=== PATIENT | female | born 1985 | race Caucasian/White ===

== ENCOUNTER 2023-12-27 20:07 | Outpatient (REF) | payer BC, MEDICAID, SELFPAY ==
[2024-01-03 09:07] LABS: Age Gdln ACOG Testing Note (.); HPV Aptima Negative (Negative); IGP, Aptima HPV, rfx 16/18,45 Note (.)
== END 2023-12-27 20:08 | disposition home or self-care (01) ==
LOC: LAB 20:07
PROVIDERS: Visit Provider Obstetrics & Gynecology
DX: Z01.419 Encounter for gynecological examination (general) (routine) without abnormal findings (principal); N92.6 Irregular menstruation, unspecified
CPT/HCPCS: 87624; G0145

== ENCOUNTER 2024-01-05 10:07 | Outpatient (OUT) | payer BC, MEDICAID, SELFPAY ==
--- NOTE | 2024-01-05 10:09 | US_ITS ---
The [address] [address] Patient Name: ANTONIO GAYTAN MRN: [id number] date: 1985 Sex: F Assigned Patient Location: [facility] Current Patient Location: [facility] Accession/Order Number: [id number] Exam Date: 01/05/2024 10:10 Report Date: 01/05/2024 12:48 At the request of: BRIGITTE HERNANDEZ Procedure: US pelvis w/ transvaginal EXAMINATION: US pelvis w/ transvaginal HISTORY: IRREGULAR MENSTRAL CYCLE COMPARISON: No relevant comparison available. FINDINGS: Transabdominal and transvaginal images The uterus is normal in size, contour and myometrial echotexture measuring 8.7 x 4.0 x 4.6 cm. Anteverted, anteflexed. No focal myometrial mass The endometrium measures 10 mm, normal. The right ovary is normal measuring 3.0 x 1.6 x 2.8 cm. Normal color and Doppler flow The left ovary is normal measuring 2.9 x 2.0 x 2.6 cm. Normal color and Doppler flow US/US pelvis w/ transvaginal IMPRESSION: No acute abnormality Electronically authenticated by: JOSSIE DUPREE Date: 01/05/2024 12:48
== END 2024-01-05 10:08 | disposition home or self-care (01) ==
LOC: NOMS 10:07
PROVIDERS: PCP Obstetrics & Gynecology; Visit Provider Obstetrics & Gynecology
DX: N92.6 Irregular menstruation, unspecified (principal)
CPT/HCPCS: 76830; 76856

== ENCOUNTER 2024-01-19 11:58 | Emergency (ER) | payer BC, MEDICAID, SELFPAY ==
[2024-01-19] VITALS (15 sets, daily range): BP systolic 97–156; BP diastolic 66–97; PULSE 73–103; TEMP 36.8; O2SAT 86–100; BMI 24.7
--- NOTE | 2024-01-19 12:26 | ECG_ITS ---
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
--- NOTE | 2024-01-19 12:26 | XR_ITS ---
The [address] [address] Patient Name: ANTONIO GAYTAN MRN: [id number] date: 1985 Sex: F Assigned Patient Location: ER Current Patient Location: ER Accession/Order Number: [id number] Exam Date: 01/19/2024 12:42 Report Date: 01/19/2024 13:00 At the request of: STACI STALLINGS Procedure: XR chest 1V EXAM: Chest x-ray HISTORY: . chest pain . COMPARISON: None. TECHNIQUE: Angled view of the chest FINDINGS: Heart and vascularity are unremarkable. Lungs are free of focal infiltrates. EKG leads overlie the chest. XR/XR chest 1V IMPRESSION: No acute heart or lung disease identified. Electronically authenticated by: JOSSIE CHRIS Date: 01/19/2024 13:00
[2024-01-19] MEDS: 0.9 % SODIUM CHLORIDE 1,000 ML 999 ML IV (13:03)
[2024-01-19 13:04] LABS: Basophils Percent Auto 0.5 % (0.2-2.0); Eosinophils Percent Auto 0.5 % (0.9-7.0); Hematocrit 41.7 % (36.0-48.0); Hemoglobin 13.6 g/dL (12.0-16.0); Immature Granulocytes Abs Auto 0.02 10^3/uL (0.00-0.03); Immature Granulocytes Pct Auto 0.2 % (0.0-0.5); Lymphocytes Absolute Auto 2.8 10^3/uL (1.2-3.8); Lymphocytes Percent Auto 31.3 % (20.5-60.0); Mean Corpuscular HGB Conc 32.6 g/dL (29.9-35.2); Mean Corpuscular Hemoglobin 27.3 pg (26.7-34.0); Mean Corpuscular Volume 83.7 fL (81.0-99.0); Mean Platelet Volume 11.5 fL (9.5-13.5); Monocytes Absolute Auto 0.7 10^3/uL (0.3-0.8); Monocytes Percent Auto 8.4 % (1.7-12.0); Neutrophils Absolute Auto 5.2 10^3/uL (1.4-6.5); Neutrophils Percent Auto 59.1 % (43.0-75.0); Platelet Count 276 10^3/uL (150-450); Red Blood Count 4.98 10^6/uL (4.20-5.40); Red Cell Distribution Width 11.9 % (11.0-15.0); White Blood Count 8.8 10^3/uL (4.0-11.0)
--- NOTE | 2024-01-19 13:11 | US_ITS ---
The [place] [id number] Patient Name: ANTONIO GAYTAN MRN: [id number] date: 1985 Sex: F Assigned Patient Location: ER Current Patient Location: ER Accession/Order Number: [id number] Exam Date: 01/19/2024 13:11 Report Date: 01/19/2024 14:26 At the request of: STACI STALLINGS Procedure: US venous doppler LE LT ULTRASOUND OF LEFT LOWER EXTREMITY VENOUS SYSTEMS WITH DUPLEX, 01/19/2024 1:11 PM EDT INDICATION: Left lower extremity pain x1 year. Elevated d-dimer COMPARISON: No prior left lower extremity ultrasound available for comparison at the time of this dictation. TECHNIQUE: Multi-planar real-time ultrasonography of the left lower extremity venous systems using grayscale imaging supplemented by color Doppler. Augmentation and compression maneuvers were utilized as needed. FINDINGS: The saphenofemoral junction, common femoral, profunda femoral, superficial femoral and popliteal veins are fully compressible with anterograde flow. Respiratory variation and waveform response to augmentation within normal limits. The small saphenous vein is fully compressible. Visualized portions of the greater saphenous vein and anterior tibial vein are compressible. US/US venous doppler LE LT IMPRESSION: Negative for deep venous thrombosis within the left lower extremity. Electronically authenticated by: MANOHAR NICOLAS Date: 01/19/2024 14:26
[2024-01-19 13:14] LABS: Alanine Aminotransferase 24 U/L (14-59); Albumin Globulin Ratio 1.1; Albumin Level 3.8 g/dL (3.4-5.0); Alkaline Phosphatase 93 U/L (46-116); Anion Gap 13.4; Aspartate Amino Transferase 14 U/L (15-37); BUN Creatinine Ratio 15.9; Bilirubin Total 0.4 mg/dL (0.2-1.0); Calcium 9.1 mg/dL (8.5-10.1); Carbon Dioxide 24.7 mmol/L (21.0-32.0); Chloride 103 mmol/L (98-107); Estimated GFR (African America >60 (>=60); Estimated GFR (Non-African Ame >60 (>=60); Globulin 3.5 g/dL; Glucose 93 mg/dL (74-106); Potassium 3.1 mmol/L (3.5-5.1); Sodium 138 mmol/L (136-145); Total Protein 7.3 g/dL (6.4-8.2)
[2024-01-19 13:15] LABS: D Dimer 0.73 mg/L FEU (<=0.59)
--- NOTE | 2024-01-19 13:15 | CT_ITS ---
The [address] [address] Patient Name: ANTONIO GAYTAN MRN: [facility]:[id number] date: 1985 Sex: F Assigned Patient Location: ER Current Patient Location: Accession/Order Number: [id number] Exam Date: 01/19/2024 13:58 Report Date: 01/19/2024 14:49 At the request of: STACI STALLINGS Procedure: CT cervical spine wo con EXAMINATION: CT cervical spine wo con HISTORY: cervical radiculopathy, neck pain, left arm weakness COMPARISON: No relevant comparison available. TECHNIQUE: Axial, Coronal, and Sagittal images were created without IV contrast. Dose reduction techniques were achieved by using automated exposure control and/or adjustment of mA and/or kV according to patient size and/or use of iterative reconstruction technique. FINDINGS: VERTEBRAL BODIES: Slight reversal of the normal lordotic curvature. No fracture, spondylolisthesis, bone lesion. FACET JOINTS: Mild degenerative facet arthropathy on the left at C4-5. No disruption or abnormal widening. DISCS: No significant disc/facet abnormality, spinal stenosis, or foraminal stenosis. CENTRAL CANAL: No evidence of hemorrhage. PARASPINAL AREA: No visible mass. CT/CT cervical spine wo con IMPRESSION: 1. Slight reversal of the normal lordotic curvature; positioning versus muscle spasm. 2. No appreciable acute abnormality or significant degenerative changes. Electronically authenticated by: SHELLI LEAL Date: 01/19/2024 14:49
--- NOTE | 2024-01-19 13:15 | CT_ITS ---
[address] [address] Patient Name: ANTONIO GAYTAN MRN: [facility]:[id number] date: 1985 Sex: F Assigned Patient Location: ER Current Patient Location: Accession/Order Number: [id number] Exam Date: 01/19/2024 13:58 Report Date: 01/19/2024 14:37 At the request of: STACI STALLINGS Procedure: CT angio chest EXAM: CT angio chest HISTORY: chest pain, elevated ddimer COMPARISON: None. TECHNIQUE: CT chest with intravenous contrast was performed with timing for the evaluation for pulmonary arteries. Multiplanar reformats were performed. MIP (maximum intensity projection) images or 3D post processing was performed. Dose reduction techniques were achieved by using automated exposure control and/or adjustment of mA and/or kV according to patient size and/or use of iterative reconstruction technique. FINDINGS: Lungs: No consolidation, pneumothorax, or effusion. Airways: Normal. Mediastinum: No adenopathy. Aorta: No aneurysm. Cardiac: Normal size. No pericardial effusion. Pulmonary vasculature: Diagnostic opacification of pulmonary arteries without evidence of pulmonary embolus. Normal morphology. Bones: No acute bony abnormality. Axilla: No adenopathy. Thyroid gland: No abnormality demonstrated on provided imaging. Soft tissues: Unremarkable. Upper abdomen: Unremarkable. Additional findings: None. CT/CT angio chest IMPRESSION:No evidence of pulmonary embolus or acute intrathoracic abnormality. Electronically authenticated by: KIRT MARK Date: 01/19/2024 14:37
[2024-01-19 13:20] LABS: Troponin I High Sensitivity <4.0 pg/mL (4.0-51.3)
[2024-01-19] MEDS: MECLIZINE HCL 12.5 MG TABLET 25 MG PO (13:29)
[2024-01-19] MEDS: POTASSIUM CHLORIDE 10 MEQ ER TABLET 40 MEQ PO (14:17)
--- NOTE | 2024-01-19 15:17 | ED_ITS ---
HPI HPI - General Adult General Chief complaint: Chest Pain Stated complaint: CHEST PAIN, DIZZINESS Time Seen by Provider: 01/19/24 12:11 Source: patient and family Mode of arrival: walk-in Limitations: no limitations History of Present Illness HPI narrative: Patient complains of intermittent bouts of left chest pain - just underneath and to the side of the breast - that is often associated with pain moving down the left arm - that has been occurring for the last 8-10 months. She had another bout this morning and finally decided to come get evaluated - she has not discussed this with her PCP or been evaluated at any other health care providers since it started. No fall or injury to the head or neck. No fever or chills. No GI or symptoms. She denies any personal or family history of AMI before age 50 or of DVT/PE. On questioning she admits that she has noticed some left LE swelling and some pain to the left calf for about a month or two. She also complains of long history of vertigo. Symptoms worse with movement of the head or change in body position. No ear pain, sinus symptoms or sore throat. She has never taken meclizine. Related Data Previous Rx's ?Medication ?Instructions ?Recorded meclizine 25 mg tablet 25 mg PO TID PRN dizziness #30 tabs 01/19/24 methylprednisolone 4 mg tablets in 4 mg PO DAILY #21 ea 01/19/24 a dose pack (Medrol (Domingo)) Allergies Allergy/AdvReac Type Severity Reaction Status Date / Time Penicillins AdvReac Mild Verified 01/19/24 12:03 Sulfa (Sulfonamide AdvReac Mild Verified 01/19/24 12:03 Antibiotics) Opioid HPI Opioid Management Most Recent Opioid Data: No Data to Display Exam Narrative Exam Narrative: Nurses notes and vital signs reviewed and patient is not hypoxic. afebrile General: Well-appearing and in no apparent distress. Skin: Warm, dry, no pallor noted. No rash. Head: Normocephalic, atraumatic. Neck: Supple, non-tender. Eye: Pupils are equal, round and EOMI. No scleral icterus. Ears, Nose, Mouth, and Throat: TM are clear, no posterior oropharynx erythema or nasal mucosal hypertrophy, uvula is mid-line Oral mucosa is moist Cardiovascular: Regular Rate and Rhythm without murmur, gallop or rub. Respiratory: No accessory muscle use or respiratory distress. Lungs are clear to auscultation, no wheezing, rales or rhonchi Chest Wall: no tenderness Back: No midline thoracic or lumbar vertebral tenderness. No CVA tenderness Musculoskeletal: normal ROM, no calf or popliteal tenderness, no lower ex tremity edema/swelling GI: Abdomen is soft, non-distended. Normal bowel sounds. No masses appreciated. No tenderness to palpation. No rebound, guarding, or rigidity noted. Neurological: A&O x4. No cranial nerve dysfunction observed. No truncal ataxia. Moves all extremities but the left upper extremity is weaker than the right. Sensation intact and normal bilaterally. Psychiatric: Cooperative and interactive. Normal mood and affect. Constitutional Vital Signs, click to edit/add: Last Vital Signs Temp 98.3 F 01/19/24 12:03 Pulse 76 01/19/24 15:00 Resp 25 H 01/19/24 15:00 BP 110/66 01/19/24 15:33 Pulse Ox 100 01/19/24 15:00 O2 Del Method Room Air 01/19/24 12:03 Course Vital Signs Vital signs: Vital Signs Temperature 98.3 F 01/19/24 12:03 Pulse Rate 98 H 01/19/24 12:03 Respiratory Rate 16 01/19/24 12:03 Blood Pressure 156/97 H 01/19/24 12:03 Pulse Oximetry 100 01/19/24 12:03 Oxygen Delivery Method Room Air 01/19/24 12:03 Temperature 98.3 F 01/19/24 12:03 Pulse Rate 76 01/19/24 15:00 Respiratory Rate 25 H 01/19/24 15:00 Blood Pressure 110/66 01/19/24 15:33 Pulse Oximetry 100 01/19/24 15:00 Oxygen Delivery Method Room Air 01/19/24 12:03 Medical Decision Making MDM Narrative Medical decision making narrative: Patient was placed on shelter monitor and EKG obtained. Blood drawn and sent for evaluation. Orthostatics were negative. The patient was given meclizine for her vertigo. Chest x-ray was obtained. When the D-dimer was elevated, the patient had left lower extremity ultrasound and CTA of the chest. CT of the cervical spine was also obtained due to the patient's left upper extremity radiculopathy. Workup was essentially negative. No worrisome findings on the blood testing or on the EKG, chest x-ray, CTA of the chest and left lower extremity ultrasound - all essentially negative except for the elevated D-dimer. The patient's CT scan of the cervical spine showed some slight reversal of the normal lordotic curvature and some mild degenerative facet arthropathy on the left at C4-C5 level without any disruption or abnormal widening. These changes may account for the patient's left upper extremity changes. The patient was informed of results and discharged home. I did put her on a Medrol Dosepak to try and see if that helps with her left upper extremity changes. I recommend that she follow-up with her primary care provider for akiko tional intervention and evaluation. Lab Data Lab results reviewed: Yes I reviewed the patient's lab results Labs: Lab Results 01/19/24 Range/Units 12:10 WBC 8.8 (4.0-11.0) 10^3/uL RBC 4.98 (4.20-5.40) 10^6/uL Hgb 13.6 (12.0-16.0) g/dL Hct 41.7 (36.0-48.0) % MCV 83.7 (81.0-99.0) fL MCH 27.3 (26.7-34.0) pg MCHC 32.6 (29.9-35.2) g/dL RDW 11.9 (11.0-15.0) % Plt Count 276 (150-450) 10^3/uL MPV 11.5 (9.5-13.5) fL Neut % (Auto) 59.1 (43.0-75.0) % Lymph % (Auto) 31.3 (20.5-60.0) % [place] % (Auto) 8.4 (1.7-12.0) % Eos % (Auto) 0.5 L (0.9-7.0) % Baso % (Auto) 0.5 (0.2-2.0) % Neut # (Auto) 5.2 (1.4-6.5) 10^3/uL Lymph # (Auto) 2.8 (1.2-3.8) 10^3/uL [place] # (Auto) 0.7 (0.3-0.8) 10^3/uL Eos # (Auto) 0.0 (0.0-0.7) 10^3/uL Baso # (Auto) 0.0 (0.0-0.1) 10^3/uL Abs Immat Gran (auto) 0.02 (0.00-0.03) 10^3/uL Imm/Tot Granulo (auto) 0.2 (0.0-0.5) % D-Dimer 0.73 H* (<=0.59) mg/L FEU Sodium 138 (136-145) mmol/L Potassium 3.1 L (3.5-5.1) mmol/L Chloride 103 (98-107) mmol/L Carbon Dioxide 24.7 (21.0-32.0) mmol/L Anion Gap 13.4 BUN 11.0 (7.0-18.0) mg/dL Creatinine 0.69 (0.55-1.02) mg/dL Est GFR ( Amer) >60 (>=60) Est GFR (Non-Af Amer) >60 (>=60) BUN/Creatinine Ratio 15.9 Glucose 93 (74-106) mg/dL Calcium 9.1 (8.5-10.1) mg/dL Total Bilirubin 0.4 (0.2-1.0) mg/dL AST 14 L (15-37) U/L ALT 24 (14-59) U/L Alkaline Phosphatase 93 (46-116) U/L Troponin I High Sens <4.0 L (4.0-51.3) pg/mL NT-Pro-B Natriuret Pep 52.0 (<=450.0) pg/mL Total Protein 7.3 (6.4-8.2) g/dL Albumin 3.8 (3.4-5.0) g/dL Globulin 3.5 g/dL Albumin/Globulin Ratio 1.1 Imaging Data xr chest, CTA chest, CT c-spine, US L LE: Attestation: I have reviewed the pertinent imaging results. Radiologist's impression: ITS Impressions Chest X-Ray 01/19/24 12:26 IMPRESSION: No acute heart or lung disease identified. Electronically authenticated by: JOSSIE CHRIS Date: 01/19/2024 13:00 Venous Doppler Study 01/19/24 13:11 IMPRESSION: Negative for deep venous thrombosis within the left lower extremity. Electronically authenticated by: MANOHAR NICOLAS Date: 01/19/2024 14:[address] 01/19/24 13:15 IMPRESSION: 1. Slight reversal of the normal lordotic curvature; positioning versus muscle spasm. 2. No appreciable acute abnormality or significant degenerative changes. Electronically authenticated by: SHELLI LEAL Date: 01/19/2024 14:49 Chest CTA 01/19/24 13:15 IMPRESSION:No evidence of pulmonary embolus or acute intrathoracic abnormality. Electronically authenticated by: KIRT MARK Date: 01/19/2024 14:37 ECG Data Attestation: I personally reviewed and interpreted this ECG as follows: Interpretation: EKG interpretation: Emergency Department physician interpretation. Normal sinus rhythm at 90bpm. Moderate right axis, normal intervals and no ST segment elevation or depression. Discharge Plan Discharge Stand Alone Forms: Portal Instructions Chief Complaint: Chest Pain Clinical Impression: Cervical radiculopathy, Left arm weakness, Chest pain Patient Disposition: Home, Self-Care Time of Disposition Decision: 15:21 Prescriptions / Home Meds: New methylprednisolone [Medrol (Domingo)] 4 mg tablets,dose pack 4 mg PO DAILY Qty: 21 0RF meclizine 25 mg tablet 25 mg PO TID PRN (Reason: dizziness) Qty: 30 0RF Print Language: Telugu Instructions: Chest Pain (ED), Cervical Radiculopathy (ED) Referrals: ADARSH PATEL [Primary Care Provider] - 1 week Discharge Date/Time: 01/19/24 15:40
== END 2024-01-19 15:40 | disposition home or self-care (01) ==
PROVIDERS: Emergency Provider Emergency Medicine
DX: R07.9 Chest pain, unspecified (principal); M54.12 Radiculopathy, cervical region; R53.1 Weakness
CPT/HCPCS: 36415; 71045; 71275; 72125; 80053; 83880; 84484; 85025; 85378; 93005; 93971; 99285; Q9967

== ENCOUNTER 2024-01-24 08:25 | Outpatient (REF) | payer BC, MEDICAID, SELFPAY | END 2024-01-24 08:26 | disposition home or self-care (01) | LOC: LAB 08:25 | PROVIDERS: Visit Provider Obstetrics & Gynecology | DX: N92.1 Excessive and frequent menstruation with irregular cycle (principal) | CPT/HCPCS: 88305 ==

== ENCOUNTER 2024-03-04 20:40 | Emergency (ER) | payer BC, SELFPAY ==
[2024-03-04 20:44] VITALS: BP 153/77; PULSE 89; TEMP 36.9; O2SAT 99; BMI 24.7
--- OUTSIDE RECORDS SUMMARY | 2024-03-04 20:50 | XMS_ITS | CCD ---
Author Organization [facility] Care Team Providers Care See Wheeler Name Role Phone Cross, Lashell F Unavailable Unavailable Cross, Lashell F Unavailable Unavailable CHINTAN MALIK Unavailable Unavailable Kirstin Lund Unavailable Dena Renteria Unavailable OMKAR ., DR TUCKER Attending Unavailabl e OMKAR ., DR TUCKER Consulting Unavailespinoza e OMKAR ., DR TUCKER Admitting Unavailespinoza e ЮЛИЯ, DR TOBIN Primary Care Unavailable Brigitte Roberts Attending Provider Brigitte Roberts Attending Unavailable Brigitte Roberts Admitting Unavailable BRIGITTE ROBERTS Attending Unavailable BRIGITTE ROBERTS Attending Unavailable ADARSH PATEL Attending Unavailable SARMAD QUARLES Referring Unavailable Allergies Allergy Classification Reported Allergen(s) Allergy Type Date of Onset Reaction(s) Facility (5 sources) penicillin; Translations: [penicillin] Drug Allergy rash [facility] (1 source) sulfamethoxazole ; Translations: [sulfamethoxazol e] Drug Allergy [facility] (4 sources) Sulfonamides (Antibiotic) Propensity to adverse reactions Unknown [employer] Other (1 source) Latex Drug allergy (disorder) 9 [facility] Rep[facility] (2 sources) Penicillins Drug allergy (disorder) 6 rash [facility] (1 source) Sulfonamides (Antibiotic) Drug allergy (disorder) 6 [facility] (2 sources) Sulfonamides (Antibiotic); Translations: [Sulfa (Sulfonamide Antibiotics)] Allergy to substance 4 [facility] (1 source) Penicillins Drug allergy (disorder) 4 [facility] Repository Medications Current Medications Medication Drug Class(es) Dates Sig (Normalized) Sig (Original) escitalopram 5 mg oral tablet (2 sources) Serotonin Reuptake Inhibitor take 1 tablet by mouth every twenty-four hours Lexapro 5 MG 1 tablet Orally Once a day Active predniSONE 20 mg oral tablet (1 source) Start: 02-23-2023 predniSONE 20 MG take 2 tabs po daily x 5 days Orally Once a day for 5 days January, Active Completed/Discontinued Medications Medication Drug Class(es) Dates Sig (Normalized) Sig (Original) azithromycin 250 mg oral tablet (2 sources) Macrolide Antimicrobial Start: 11-08-2022 Azithromycin 250 MG 2 tablet on the first day, then 1 tablet daily for 4 days Orally Once a day for 5 day(s) Oct, Not-Taking fluconazole 150 mg oral tablet (2 sources) Azole Antifungal Start: 11-08-2022 take 1 tablet by mouth once Fluconazole 150 MG 1 tablet Orally once for 1 day Oct, Not-Taking Problems Active Problems Problem Classification Problem Date Documented Date Episodic/Chronic Anxiety disorders (4 sources) Generalized anxiety disorder; Translations: [Generalized anxiety disorder] Chronic Headache; including migraine (4 sources) Migraine; Translations: [Other migraine, not intractable, without status migrainosus] Chronic Immunizations and screening for infectious disease (1 source) Encounter for screening for human papillomavirus (HPV); Translations: [ENC SCREENING HUMAN PAPILLOMAVIRUS] Onset: 01-01-2023 Episodic Lymphadenitis (2 sources) Inguinal lymphadenopathy; Translations: [Localized enlarged lymph nodes] Episodic Other and unspecified benign neoplasm (4 sources) Hemangioma; Translations: [Hemangioma of unspecified site] Episodic Other screening for suspected conditions (not mental disorders or infectious disease) (4 sources) Encounter for screening for malignant neoplasm of cervix; Translations: [ENC SCREENING MALIG NEOPLASM CERV] Onset: 12-25-2022 Episodic Other upper respiratory infections (2 sources) Acute pharyngitis, unspecified; Translations: [Streptococcal pharyngitis] Episodic Spondylosis; intervertebral disc disorders; other back problems (2 sources) Sciatica; Translations: [Sciatica, left side] Episodic Past or Other Problems Problem Classification Problem Date Documented Da te Episodic/Chronic Inflammatory diseases of female pelvic organs (1 source) Acute vaginitis Onset: 04-03-2022 Resolved: 04-03-2022 Episodic Results Test Name Value Interpretation Reference Range Facility [facility] 01-24-2024 L Specimen: [id number] Received: 01/25/24 Status: СВЕТЛАНА Vigil Num: [id number] Spec Type: Surgical Subm Dr: Brigitte Roberts Tissues: A Endometrium - Biopsy (EMB) Procedures: HE/2, Gross/Micro L4 Age/ Patient Sex Location Account Attending Physician JoannYandy E 38/F LABELL [id number] Brigitte Roberts SPEC NUM: [id number] RECD: 01/25/24 STATUS: СВЕТЛАНА VIGIL NUM: [id number] LUÍS: 01/24/24 DR: Brigitte Roberts ENTERED: 01/25/[address] [facility] [address]: Ivett,Lab SPEC TYPE: Surgical DEPT: PAZ KERN ORDERED: HE/2, Gross/Micro L4 ORDERED: HE/2, Gross/Micro L4 Pathological Diagnosis Endometrium, biopsy: Secretory endometrium. Gross Description Received in formalin, labeled with the patient's name, date of and EM BX are multiple geller-white tissue fragments admixed with mucus measuring in aggregate 2.6 x 1.3 x 0.4 cm, entirely submitted in A1. Clinical history: Menorrhagia with irregular. CPT Codes 51923 Specimen: [id number] Received: 01/25/24 Status: СВЕТЛАНА Vigil Num: [id number] Spec Type: Surgical Subm Dr: Brigitte Roberts Tissues: A Endometrium - Biopsy (EMB) Procedures: HE/2, Gross/Micro L4 Patient: Yandy Gaytan Jason [id number] (Continued) Signed (signature on file) Perez Mercedes MD 01/26/24 1309 Normal [facility] PAP ACOG PANEL 2: 30 to 65on 01-04-2023 . . Normal [facility] Comment on above: Result Comment: Performed at: WB Performed By: #### [id number] #### [facility] [address] [place] [address] Dr. Jyoti Valero Age Gdln ACOG Testing 30-65 Normal [facility] Comment on above: Performed By: #### [id number] #### [facility] [address] [address] [address] Jyoti Valero DIAGNOSIS: Comment Normal [facility] Comment on above: Result Comment: NEGATIVE FOR INTRAEPITHE LIAL LESION OR MALIGNANCY. CELLULAR CHANGES ASSOCIATED WITH INFLAMMATION ARE PRESENT. THIS SPECIMEN WAS RESCREENED PART OF OUR EXPEDITION SUPERVISOR PROGRAM. Performed at: WB Performed By: #### [id number] #### [facility] [address] [place] [address] Dr. Jyoti Valero HPV Aptima Negative Normal Negative [facility] Comment on above: Result Comment: This nucleic acid amplif ication test detects fourteen high-risk HPV types (16,18,31,33,35,39,45,51,52,56,58,59,66,68) without differentiation. Performed at: =G Performed By: #### [id number] #### [facility] [address] [place] [address] Dr. Jyoti Valero HPV Genotype Reflex Comment Normal [facility] Comment on above: Result Comment: Criteria not met, HPV Ge notype not performed. Performed at: WB Performed By: #### [id number] #### [facility] [address] [place] [address] Dr. Jyoti Valero Methodology: Comment Normal [facility] Comment on above: Result Comment: This liquid based ThinPr ep(R) pap test was screened with the use of an image guided system. Performed at: WB Performed By: #### [id number] #### [facility] [address] [place] [address] Dr. Jyoti Valero Note: Comment Normal [facility] Comment on above: Result Comment: The Pap smear is a scree carter test designed to aid in the detection of premalignant and malignant conditions of the uterine cervix. It is not a diagnostic procedure and should not be used as the sole means of detecting cervical cancer. Both false-positive and false-negative reports do occur. . Performed at: WB Performed By: #### [id number] #### [facility] [address] [place] [address] Dr. Jyoti Valero Performed by: Comment Normal [facility] Comment on above: Result Comment: Isaac Arredondo Cytote chnologist (ASCP) Performed at: WB Performed By: #### [id number] #### [facility] [address] [place] [address] Dr. Jyoti Valero QC reviewed by: Comment Normal [facility] Comment on above: Result Comment: Petra Cassidy, Vessel Traffic Officer y Keyboard Operator (ASCP) Performed at: WB Performed By: #### [id number] #### [facility] [address] [address] [address] Jyoti Valero Specimen adequacy: Comment Normal [facility] Comment on above: Result Comment: Satisfactory for evaluat ion. Endocervical and/or squamous metaplastic cells (endocervical component) are present. Performed at: WB Performed By: #### [id number] #### [facility] [address] [address] [address] Jyoti Valero Quick Strepon 11-08-2022 S. pyogenes Org specific cx Ql (Throat) [facility] [employer] Other Quick Strep [employer] Other Urinalysis - AUTOMATEDon Appearance (U) clear [employer] Other Bilirubin Ql (U) Negative [employer] Other Color (U) yellow [employer] Other Glucose Ql (U) Negative [employer] Other Hemoglobin Ql (U) Negative [employer] Other Ketones Ql (U) Negative [employer] Other Nitrite Ql (U) Negative [employer] Other pH (U) 5.0 [pH] [employer] Other Protein Ql (U) Negative [employer] Other Specific gravity (U) [Rel density] 1.015 [employer] Other Urobilinogen (U) [Mass/Vol] 0.2 mg/dL [employer] Other Urinalysis - AUTOMATED [employer] Other Coding Summary.on 01-15-2018 Coding Summary. CODING DATE: 018 [facility] STATUS: Home (Routine DC) PAYOR: Self Pay APC DESCRIPTION 5522 Level 2 Imaging without Contrast 5024 Level 4 Type A ED Visits ADMIT DX: REASON FOR VISIT DX: R51 Headache FINAL DX: PRINCIPAL: R51 Headache SECONDARY: R42 Dizziness and giddiness Z88.0 Allergy status to penicillin Z88.2 Allergy status to sulfonamides status PYMT PROC APC STAT DESCRIPTION DOCTOR NAME DATE NOTE: The code number assigned matches the documented diagnosis and / or procedure in the patient's chart. However, the narrative phrase printed from the coding software may appear abbreviated, or result in slightly different terminology. Revised Coded By: Farideh Cohen Revised Date Saved: 01/15/2018 01:58 pm Normal [facility] CT Head or Brain w/o Contras ton 01-14-2018 CT Head or Brain w/o Contrast Exam Date/Time:01/14/2018 13:13 EDTReason for Exam:HeadacheReportIMPRESSI ON: NEGATIVE CT SCAN OF THE BRAIN. CLINICAL HISTORY: Headache. COMMENT: Unenhanced images were obtained.The ventricles and basal cisterns appear within normal limits. The cortical sulciappear normal. There is no mass effect nor midline shift. No abnormal attenuationwithin the brain is noted. There is no evidence of recent intracranial hemorrhagenor extra-axial hematoma. No mass lesion is evident. No skull fracture is noted. All CT scans at this facility use dose modulation, iterative reconstruction, and/orweight based dosing when appropriate to reduce radiation dose to as low as reasonablyachievable. FINAL REPORT Dictated: 01/14/2018 1:30 pm Jose Alberto Hancock M.D. Signed (Electronic Signature): 01/14/2018 1:30 pm Signed by: Jose Alberto Hancock M.D. Transcribed by: MATHEW Technologist: KEVIN Meyer [facility] ED Clinical Summaryon 2017 ED Clinical Summary [place] [address] ED Clinical SummaryPerson Information Name: Avery HOLLOWAY/Kuldip Age: 32 Years : 1985 12:00 AM Sex: Female Language:Serbian PCP: CARLOS BETH DO Marital Status:Single Visit Id: Visit Reason:Vomiting; Head pain; HEADACHE,BLURRED VISION Speciality: Acuity: 3 Enc Type: Emergency Med Service: Emergency Arrival:01/14/2018 11:06 AM Discharge: 01/14/2018 2:44 PM LOS: 000 03:38 Checkin:01/14/2018 11:06 AM Checkout: 01/14/2018 2:44 PM Dispo Type: Home (Routine DC) EVENTS:Event Name Event Status Request Date/Time Start Date/Time Complete Date/Time Arrive Complete 01/14/2018 11:06 AM 01/14/2018 11:06 AM 01/14/2018 11:06 AM Document Home Meds Complete 01/14/2018 11:06 AM 01/14/2018 1:52 PM 01/14/2018 1:52 PM Triage Complete 01/14/2018 11:06 AM 01/14/2018 11:16 AM 01/14/2018 11:16 AM Bed Assign Complete 01/14/2018 11:11 AM 01/14/2018 11:11 AM 01/14/2018 11:[address] Exam Complete 01/14/2018 11:11 AM 01/14/2018 11:19 AM 01/14/2018 11:19 AM RN Exam Complete 01/14/2018 11:11 AM 01/14/2018 12:20 PM 01/14/2018 12:20 PM Registration Complete 01/14/2018 11:19 AM 01/14/2018 11:44 AM 01/14/2018 11:[address] Exam Complete 01/14/2018 11:23 AM 01/14/2018 11:23 AM 01/14/2018 11:[address] Complete 01/14/2018 11:31 AM 01/14/2018 1:03 PM 01/14/2018 1:13 PM Reg Complete Request 01/14/2018 11:44 AM Reg Bed Request Complete 01/14/2018 11:44 AM 01/14/2018 11:44 AM 01/14/2018 11:44 AM Meds Admin Complete 01/14/2018 1:41 PM 01/14/2018 1:52 PM Discharge Complete 01/14/2018 2:40 PM 01/14/2018 2:44 PM 01/14/2018 2:44 PM Transfer Complete 01/14/2018 2:44 PM 01/14/2018 2:44 PM 01/14/2018 2:44 PM ADDRESS:[address] [place] [id number] PHYS DOC NOTES: MEDICAL INFORMATION: Prescriptions Given:Prescription Display APAP/butalbital/caffeine (APAP/butalbital/caffeine 325 mg-50 mg-40 mg Tab) 1 tab(s), Oral, q4hr for headache, 15 tab(s), Refill(s) 0 meclizine (meclizine 25 mg Tab) 25 mg = 1 tab(s), Oral, TID, PRN for dizziness, # 15 tab(s), Refills(s) 0 PATIENT EDUCATION INFORMATION: Instructions:Migraine Headache; Dizziness Follow up:With: Address: When: CARLOS BETH [address] [place] [address] [place] [address] Business (1) In 3 days 01/17/2018 DIAGNOSIS:Headache; Vertigo Normal [facility] ED Note-Physicianon 01-15-20 ED Note-Physician Basic Information Time Seen: Jeffrey Grajeda PA-C 01/14/2018 11:19Chief Complaint generalized head pressure worse in the frontal area since yesterday, has had chills, sweats, nausea, vomiting, and c/o feeling really weird sts hx of migraines but this is not similar. has taken rx and otc meds w/o reliefHistory of Present Illness 32-year-old female comes to the ED for evaluation of a headache. The patient has a history of migraines, however she presents today with a headache that feels different from her normal migraines. She developed a bitemporal headache yesterday that got progressively worse. Patient states she feels weird and has had some intermittent confusion. She complains of vertiginous symptoms and the sensation of head pressure. Associated nausea, vomiting. No fevers. No trauma. No neck pain or rigidity. She is awake and alert. She has taken Aleve without relief. No prior treatments. No unilateral weakness or paresthesias. Headache is progressive, not of sudden onset. She does not describe it as was having of her life. No concern for .Review of Systems Unless otherwise stated in this report or unable to obtain because of patient's clinical or mental status as evidenced by the medical record, the patient's positive and negative responses for review of systems for constitutional, eyes, ENT, cardiovascular, respiratory, gastrointestinal, neurological, genitourinary, musculoskeletal, and integument systems and related systems to the presenting problem are either as stated in the HPI or were not pertinent or were negative for the symptoms and/or complaints related to the presenting medical problem. Medical and Surgical History: Reviewed and noted Social history: Lives at home Tobacco: DeniesPhysical Exam Vitals & Measurements T: 37.1 ?C (Tympanic) HR: 98(Peripheral) RR: 16 BP: 148/98 SpO2: 99% HT: 157 cm WT: 54.5 kg BMI: 22.11 Nurses notes and vital signs reviewed and patient is not hypoxic. General: The patient appears well and in no significant distress Patient is resting comfortably on the exam bed. Skin: Warm, dry, no pallor noted. Head: Atraumatic. Mild central tenderness bilaterally. Neck: No JVD. Full range of motion with no evidence of meningismus. Eye: Normal conjunctiva. Pupils measure 4 mm bilaterally. Equal and briskly reactive. Extraocular motions are intact. No nystagmus. No evidence of papilledema. Ears, Nose, Mouth, and Throat: Moist mucous members. TMs clear. Cardiovascular: Strong distal pulses. Chest wall: Respiratory: Respirations are nonlabored. Back: Normal range of motion. Musculoskeletal: Normal ROM with no gross deformity. Gastrointestinal: Urological: Neurological: Awake and alert. No focal deficits. Follows commands. GCS 15. Psychiatric: Cooperative.Medical Decision Making CT review by radiologist negative for acute findings. She has no focal neurologic deficit on exam. She does describe vertigo and was medicated in the ED if improvement. Remains awake and alert. No evidence of meningismus. She is discharged home on meclizine and Urised. She is to follow-up with her PCP.Patient was encouraged to return to the ED if symptoms worsen or change.Assessment/Plan Headache Vertigo Orders: APAP/butalbital/caffeine, 1 tab(s), Oral, q4hr for headache, 15 tab(s), Refill(s) 0 meclizine, 25 mg = 1 tab(s), Oral, TID, PRN for dizziness, # 15 tab(s), Refills(s) 0 CT Head or Brain w/o ContrastMedications Administered Given diphenhydrAMINE 50 mg/mL Inj, 25 mg, IntraMuscular ketorolac 60 mg/2 mL Injection, 60 mg, IntraMuscular metoclopramide 5 mg/mL Inj, 10 mg, IntraMuscularDisposition Plan Patient Discharge Condition Disposition: Discharged home Condition: Improved and stable Counseled: Patient and/or family were counseled to workup, results, treatment plan and follow-up recommendations Discharge Prescription List Prescriptions No active prescription medications Follow-up No qualifying data availableAttestation Patient seen and evaluated by the physician certified surgical first assistant. I was present in the emergency department and supervised care. I agree with the documentation, evaluation and disposition. This report was transcribed using voice recognition software. Every effort was made to ensure accuracy, however, inadvertently computerized securities sales associate mistakes may be present.Problem List/Past Medical History Ongoing No qualifying data Historical No qualifying dataMedications Inpatient No active inpatient medications Home No active home medicationsAllergies penicillin (Rash) sulfamethoxazole (Rash)Lab Results No qualifying data available.Diagnostic Results CT Head or Brain w/o Contrast 01/14/18 13:34:00 IMPRESSION: NEGATIVE CT SCAN OF THE BRAIN. CLINICAL HISTORY: Headache. COMMENT: Unenhanced images were obtained. The ventricles and basal cisterns appear within normal limits. The cortical sulci appear normal. There is no mass effect nor midline shift. No abnormal attenuation within the brain is noted. There is no evidence of recent intracranial hemorrhage nor extra-axial hematoma. No mass lesion is evident. No skull fracture is noted. All CT scans at this facility use dose modulation, iterative reconstruction, and/or weight based dosing when appropriate to reduce radiation dose to as low as reasonably achievable. Signed By: Jose Alberto Hancock M.D. [facility] Comment on above: Result Comment: Electronically Signed By : Jeffrey rGajeda PA-C\.br\Date and Time Signed: 01/14/18 15:12 EDT\.br\Electronically Co-Signed By: Lashell Cross DO\.br\Date and Time Co-Signed: 01/14/18 18:06 EDT ED Patient Summaryon 018 ED Patient Summary [place] [id number] Patient Discharge Instructions Person Information Name: YANDY HOLLOWAY Age: 32 Years Date: 01/14/2018 11:06 AMDischarge Diagnosis: Headache; Vertigo Primary Care Physician: CARLOS BETH DO Provider InformationPrimary Provider: Lashell Cross Director Family:Jeffrey Grajeda PA-C The exam and treatment you received in the Emergency Department were for an urgent problem and are not intended as complete care. It is important that you follow up with a doctor, nurse practitioner, or physician?s certified surgical first assistant for ongoing care. If your symptoms become worse or you do not improve as expected and you are unable to reach your usual health care provider, you should return to the Emergency Department. We are available 24 hours a day. YANDY HOLLOWAY has been given the following list of patient education materials, prescriptions and follow-up instructions: Follow-up Instructions:With: Address: When: CARLOS BETH [address] [place], [place] [id number] [facility] (Mobile Card In 3 days 01/17/2018 In the event that this physician does not participate in your insurance network, please consult with your insurance company to find a nearby participating provider. Patient Education Materials:Migraine Headache; Dizziness A MESSAGE TO ALL PATIENTS REGARDING OPIOIDS PRESCRIPTION OPIOIDS: WHAT YOU NEED TO KNOW Prescription opioids can be used to help relieve tqzmwenb-ut-bqnwqe pain and are often prescribed following a surgery or injury, or for certain health conditions. These medications can be an important part of the treatment but also come with serious risks. It is important to work with your healthcare provider to make sure you are getting the safest, most effective care. WHAT ARE THE RISKS AND SIDE EFFECTS OF OPIOID USE?Prescription opioids carry serious risks of addiction and overdose, especially with prolonged use. An opioid overdose, often marked by slowed breathing, can cause sudden . The use of prescription opioids can have a number of side effects as well, even when taken as directed:? Tolerance?meaning you might need to take more of the medication for the same pain relief? Physical dependence?meaning you have symptoms of withdrawal when a medication is stopped? Increased sensitivity to pain ? Constipation? Nausea, vomiting, and dry mouth? Sleepiness and dizziness? Confusion? Depression? Low levels of testosterone that can result in lower sex drive, energy, and strength? Itching and sweating RISKS ARE GREATER WITH:? History of drug misuse, substance use disorder, or overdose? Mental health conditions (such as depression or anxiety)? Sleep apnea? Older age (65 years and older)? Avoid alcohol while taking prescription opioids. Also, unless specifically advised by your health care provider, medications to avoid include:? Benzodiazepines (such as Xanax or Valium)? Muscle relaxants (such as Soma or Flexeril)? Hypnotics (such as Ambien or Lunesta)? Other prescription opioids KNOW YOUR OPTIONSTalk to your health care provider about ways to manage your pain that don?t involve prescription opioids. Some of these options may actually work better and have fewer risks and side effects. Options may include:? Pain relievers such as acetaminophen, ibuprofen, and naproxen? Some medication that are also used for depression or seizures? Physical therapy and exercise? Cognitive behavioral therapy, a psychological, goal-directed approach, in which patients learn how to modify physical, behavioral, and emotional triggers of pain and stress. IF YOU ARE PRESCRIBED OPIOIDS FOR PAIN:? Never take opioids in greater amounts or more often than prescribed.? Follow up with your primary health care provider.o Work together to create a plan on how to manage your pain.o Talk about ways to help manage your pain that don?t involve prescription opioids.o Talk about any and all concerns and side effects.? Help prevent misuse and abuseo Never sell or share prescription opioids.o Never use another person?s prescription opioids.? Store prescription opioids in a secure place and out of reach of others (this may include visitors, children, friends, and family).? Safely dispose of unused prescription opioids: Find your community drug take-back program or your pharmacy mail-back program, or flush them down the toilet, following guidance from the Food and Drug Administration (www.fda.gov/Drugs/Resource sForYou).? Visit www.cdc.gov/drugoverdose to learn about the risks of opioids abuse and overdose.? If you believe you may be struggling with addiction, tell your health career development director and ask for guidance or call [employer]?S National Helpline at 0-823-950-HELP. v Source: [place] Department of Health and Human Services/Center for Disease Control & Prevention [facility] Medications Given:Medication Dose Route diphenhydrAMINE 25.00 mg IntraMuscular Left Gluteus Medius ketorolac 60.00 mg IntraMuscular Left Gluteus Medius metoclopramide 10.00 mg IntraMuscular Right Gluteus Medius Medication Information:New MedicationsPrinted PrescriptionsAPAP/butalbita l/caffeine (APAP/butalbital/caffeine 325 mg-50 mg-40 mg Tab) 1 Tabs By Mouth every 4 hours as needed for headache. Refills: 0.meclizine (meclizine 25 mg Tab) 1 Tabs By Mouth 3 times a day as needed for dizziness. Refills: 0.Comment: Pharmacy Information: Thank you for choosing [facility] Patient Education Materials: Migraine HeadacheA migraine headache is an intense, throbbing pain on one or both sides of your head. A migraine can last for 30 minutes to several hours. CAUSESThe exact cause of a migraine headache is not always known. However, a migraine may be caused when nerves in the brain become irritated and release chemicals that cause inflammation. This causes pain.Certain things may also trigger migraines, such as:? Alcohol.? Smoking.? Stress. ? Menstruation.? Aged cheeses.? Foods or drinks that contain nitrates, glutamate, aspartame, or tyramine. ? Lack of sleep. ? Chocolate. ? Caffeine.? Hunger.? Physical exertion.? Fatigue. ? Medicines used to treat chest pain (nitroglycerine), control pills, estrogen, and some blood pressure medicines.SIGNS AND SYMPTOMS? Pain on one or both sides of your head.? Pulsating or throbbing pain.? Severe pain that prevents daily activities.? Pain that is aggravated by any physical activity.? Nausea, vomiting, or both. ? Dizziness. ? Pain with exposure to bright lights, loud noises, or activity.? General sensitivity to bright lights, loud noises, or smells.Before you get a migraine, you may get warning signs that a migraine is coming (aura). An aura may include:? Seeing flashing lights.? Seeing bright spots, halos, or zigzag lines. ? Having tunnel vision or blurred vision. ? Having feelings of numbness or tingling. ? Having trouble talking.? Having muscle weakness. DIAGNOSISA migraine headache is often diagnosed based on:? Symptoms. ? Physical exam.? A CT scan or MRI of your head. These imaging tests cannot diagnose migraines, but they can help rule out other causes of headaches. TREATMENTMedicines may be given for pain and nausea. Medicines can also be given to help prevent recurrent migraines. HOME CARE INSTRUCTIONS? Only take lgvo-oja-biwrxsf or prescription medicines for pain or discomfort as directed by your health care provider. The use of long-term narcotics is not recommended. ? Lie down in a dark, quiet room when you have a migraine. ? Keep a journal to find out what may trigger your migraine headaches. For example, write down:? What you eat and drink.? How much sleep you get.? Any change to your diet or medicines.? Limit alcohol consumption.? Quit smoking if you smoke. ? Get 7?9 hours of sleep, or as recommended by your health care provider.? Limit stress. ? Keep lights dim if bright lights bother you and make your migraines worse.SEEK IMMEDIATE MEDICAL CARE IF:? Your migraine becomes severe.? You have a fever.? You have a stiff neck.? You have vision loss.? You have muscular weakness or loss of muscle control.? You start losing your balance or have trouble walking.? You feel faint or pass out.? You have severe symptoms that are different from your first symptoms. MAKE SURE YOU:? Understand these instructions. ? Will watch your condition.? Will get help right away if you are not doing well or get worse.Document Released: 09/13/2006 Document Revised: 01/28/2015 Document Reviewed: 05/21/2014ExitCare? Patient Information ?2015 [employer]. This information is not intended to replace advice given to you by your health care provider. Make sure you discuss any questions you have with your health care provider.DizzinessDizziness is a common problem. It is a feeling of unsteadiness or light-headedness. You may feel like you are about to faint. Dizziness can lead to injury if you stumble or fall. A person of any age group can suffer from dizziness, but dizziness is more common in older adults. CAUSESDizziness can be caused by many different things, including:? Middle ear problems. ? Standing for too long.? Infections. ? An allergic reaction.? Aging. ? An emotional response to something, such as the sight of blood.? Side effects of medicines. ? Tiredness.? Problems with circulation or blood pressure.? Excessive use of alcohol or medicines, or illegal drug use.? Breathing too fast (hyperventilation).? An irregular heart rhythm (arrhythmia).? A low red blood cell count (anemia).? .? Vomiting, diarrhea, fever, or other illnesses that cause body fluid loss (dehydration).? Diseases or conditions such as Parkinson's disease, high blood pressure (hypertension), diabetes, and thyroid problems.? Exposure to extreme heat.DIAGNOSISYour health care provider will ask about your symptoms, perform a physical exam, and perform an electrocardiogram (ECG) to record the electrical activity of your heart. Your health care provider may also perform other heart or blood tests to determine the cause of your dizziness. These may include:? Transthoracic echocardiogram (TTE). During echocardiography, sound waves are used to evaluate how blood flows through your heart.? Transesophageal echocardiogram (ANDREEA).? Cardiac monitoring. This allows your health care provider to monitor your heart rate and rhythm in real time.? Holter monitor. This is a portable device that records your heartbeat and can help diagnose heart arrhythmias. It allows your health care provider to track your heart activity for several days if needed.? Stress tests by exercise or by giving medicine that makes the heart beat faster. TREATMENTTreatment of dizziness depends on the cause of your symptoms and can vary greatly.HOME CARE INSTRUCTIONS? Drink enough fluids to keep your urine clear or pale yellow. This is especially important in very hot weather. In older adults, it is also important in cold weather.? Take your medicine exactly as directed if your dizziness is caused by medicines. When taking blood pressure medicines, it is especially important to get up slowly.? Rise slowly from chairs and steady yourself until you feel okay.? In the morning, first sit up on the side of the bed. When you feel okay, stand slowly while holding onto something until you know your balance is fine.? Move your legs often if you need to tape control skin or spar mill operator one place for a long time. Tighten and relax your muscles in your legs while standing.? Have someone stay with you for 1?2 days if dizziness continues to be a problem. Do this until you feel you are well enough to stay alone. Have the person call your health care provider if he or she notices changes in you that are concerning.? Do not drive or use heavy machinery if you feel dizzy.? Do not drink alcohol.SEEK IMMEDIATE MEDICAL CARE IF:? Your dizziness or light-headedness gets worse.? You feel nauseous or vomit.? You have problems talking, walking, or using your arms, hands, or legs.? You feel weak.? You are not thinking clearly or you have trouble forming sentences. It may take a friend or family member to notice this.? You have chest pain, abdominal pain, shortness of breath, or sweating.? Your vision changes.? You notice any bleeding.? You have side effects from medicine that seems to be getting worse rather than better.MAKE SURE YOU:? Understand these instructions.? Will watch your condition.? Will get help right away if you are not doing well or get worse.Document Released: 03/09/2002 Document Revised: 09/18/2014 Document Reviewed: 04/01/2012ExitCare? Patient Information ?2014 [employer]. This information is not intended to replace advice given to you by your health care provider. Make sure you discuss any questions you have with your health care provider.JEWEL Casas ERIN , have received the following patient education materials/instructions and have verbalized understanding: Patient Education Materials: Migraine Headache; Dizziness Follow-up Instructions: With: Address: When: CARLOS BETH [address] [place] [address] [place] [address] Business (1) In 3 days 01/17/2018 Prescriptions: [APAP/butalbital/caffeine (APAP/butalbital/caffeine 325 mg-50 mg-40 mg Tab)] [meclizine (meclizine 25 mg Tab)] Patient Signature Date Clinician/Nurse Signature Date 01/14/18 14:44:18 Normal [facility] Vital Signs Date Time Vital Sign Value Performing Clinician Facility 10-29-2023 09:25-0500 Body height 157.48 cm Brigitte Alejandra Work Phone: [facility] 10-29-2023 09:25-0500 Body weight 62.59 kg Brigitte Alejandra Work Phone: [facility] 10-29-2023 09:25-0500 Diastolic blood pressure 60 mm[Hg] Brigitte Alejandra Work Phone: [facility] 10-29-2023 09:25-0500 Systolic blood pressure 110 mm[Hg] Brigitte Alejandra Work Phone: [facility] 02-23-2023 10:10-0400 Body height 157.48 cm Dena Renteria Other [employer] Other 02-23-2023 10:10-0400 Body mass index (BMI) [Ratio] 24.21 kg/m2 Dena Renteria Other [facility] [employer] [facility] Other 02-23-2023 10:10-0400 Body temperature 98.6 [degF] Dena Renteria Other [facility] Other 02-23-2023 10:10-0400 Body weight 60.06 kg Dena Renteria Other [facility] Other 02-23-2023 10:10-0400 Respiratory rate 18 /min Dena Renteria Other [facility] Other 02-23-2023 10:10-0400 SaO2% (BldA) [Mass fraction] 98 % Dena Renteria Other [facility] Other 11-08-2022 10:20-0500 Body height 157.48 cm Dena Renteria Other [facility] [employer] [facility] Other 11-08-2022 10:20-0500 Body mass index (BMI) [Ratio] 22.86 kg/m2 Dena Renteria Other [facility] [employer] Other 11-08-2022 10:20-0500 Body temperature 97 [degF] Dena Renteria Other [employer] Other 11-08-2022 10:20-0500 Body weight 56.7 kg Dena Renteria Other [facility] Other 11-08-2022 10:20-0500 Respiratory rate 18 /min Dena Renteria Other [employer] Other 11-08-2022 10:20-0500 SaO2% (BldA) [Mass fraction] 98 % Dena Renteria Other [facility] [employer] Other 04-03-2022 14:00-0400 Body height 157.48 cm Kirstin Lund Other [employer] Other 04-03-2022 14:00-0400 Body mass index (BMI) [Ratio] 22.86 kg/m2 Kirstin Lund Other [facility] [employer] Other 04-03-2022 14:00-0400 Body temperature 97.3 [degF] Kirstin Lund Other [facility] Other 04-03-2022 14:00-0400 Body weight 56.7 kg Kirstin Lund Other [facility] [employer] [facility] Other 04-03-2022 14:00-0400 Diastolic blood pressure 83 mm[Hg] Kirstin Lund Other [facility] Other 04-03-2022 14:00-0400 Respiratory rate 18 /min Kirstin Lund Other [facility] [employer] Other 04-03-2022 14:00-0400 SaO2% (BldA) [Mass fraction] 99 % Kirstin Lund Other [facility] Other 04-03-2022 14:00-0400 Systolic blood pressure 125 mm[Hg] Kirstin Lund Other [employer] Other Encounters Encounter Date Encounter Type Care Provider Facility Start: 02-02-2024 End: 02-02-2024 ambulatory ADARSH Haile AMANDA Not Available Start: 01-24-2024 End: 01-24-2024 ambulatory Brigitte Alejandra Facility:[facility] Start: 01-24-2024 End: 01-24-2024 ambulatory Brigitte Alejandra Work Phone: [facility] Work Phone: Start: 01-24-2024 End: 01-24-2024 Departed Referred Brigitte Alejandra Work Phone: [facility] Start: 01-24-2024 End: 01-24-2024 ambulatory BRIGITTE ALEJANDRA Not Available Start: 12-27-2023 End: 12-27-2023 ambulatory BRIGITTE ALEJANDRA Not Available Start: 10-29-2023 End: 02-02-2024 Patient encounter procedure Brigitte Alejandra Work Phone: [facility] Start: 02-23-2023 End: 02-23-2023 ambulatory Dena Renteria Other [employer] Other Start: 02-23-2023 Office outpatient vi sit 15 minutes Dena Renteria [facility] Start: 12-25-2022 End: 12-25-[address] CAITLIN ESPITIA . Facility: Start: 11-08-2022 End: 11-08-2022 ambulatory Dena Renteria Other [employer] Other Start: 11-08-2022 Office outpatient vi sit 25 minutes Dena Renteria [facility] Start: 04-07-2022 End: 04-07-2022 ambulatory Kirstin Lund Other [employer] Other Start: 04-07-2022 Telephone encounter Kirstin Lund [facility] [address] Start: 04-03-2022 End: 04-03-2022 ambulatory Kirstin Lund Other [employer] Other Start: 04-03-2022 Office outpatient vi sit 15 minutes Kirstin Lund [facility] Start: 01-14-2018 End: 01-14-2018 Emergency department patient visit Lashell [facility] Facility:[facility] Procedures Date Procedure Procedure Detail Performing Clinician Cosmetic surgery Kirstin Lund Other Immunizations Immunization Date Immunization Notes Care Provider Calvin edwards 08-25-2017 influenza, injectabl e, quadrivalent, preservative free Kirstin Lund Other [facility] Payers Date Payer Category Payer Self-pay [id number] 2022 Medicaid [id number] 2017 Unknown [id number] 1986 Unknown [id number] 1986 Unknown [id number] 1986 Unknown [id number] 1986 Unknown [id number] 1958 [facility] [id number] Medicaid [facility] [id number] Private Health Insurance [facility] Insurance [employer] [id number] Unknown [id number] Unknown [id number] Social History Date Type Detail Facility Unknown if ever smoked [employer] Other Sex Assigned At Sex Assigned At Bir th [employer] Other Start: 10-29-2023 Tobacco smoking status NHIS Never smoked tobacco (finding) [facility] Start: 1985 Sex Assigned At Female F [facility] Evaluation note 02-23-2023 Note Date & Type Note Facility 02-23-2023 Evaluation note Encounter Date Diagnosis Assessment Notes January, Sciatica of left side (ICD-10 - M54.32) Discussed with patient exam and history is consistent with likely sciatica. Has had on and off issues with this over the last several years. Discussed for acute flare, will treat with prednisone burst x5 days. Finish entire course. May use Aleve [id number] r twice daily. Advised to take with food. May use Tylenol in between as needed. Heat and gentle stretching as tolerated encouraged. Avoid strenuous activities until symptoms have improved. Follow-up with PCP if not gradually improving over the next week or significantly worsening. 30 Jan, 2023 Inguinal lymphadenopathy (ICD-10 - R59.0) Discussed lump palpated to left groin area is consistent with small swollen lymph node in area. Patient denies fever or other concerning symptoms. Discussed swollen lymph node in area can cause tenderness but is not a huge concern unless not resolving over the next 2 to 4 weeks. May use ice to area. May use Aleve, Tylenol for discomfort. Follow-up with PCP if not gradually improving over the next 2 to 3 weeks, sooner if significantly increasing in size or pain, fever. Patient verbalized understanding treatment plan. [facility] [employer] [facility] Other Evaluation note 11-08-2022 Note Date & Type Note Facility 11-08-2022 Evaluation note Encounter Date Diagnosis Assessment Notes Oct, Sore throat (ICD-10 - J02.9) Oct, Strep pharyngitis (ICD-10 - J02.0) Advised patient that strep test was positive. Reviewed allergies and recent antibiotic use. Instructed patient to take antibiotic as prescribed, with food and plenty of water, complete entire course even if feeling better. Advised patient that they are contagious for 24 hours after starting antibiotic. Discussed infection control and good hand hygiene. New tooth brush in 2-3 days after starting antibiotic. Patient requested rx of Diflucan to use after treatment, one day pill send, 10 days supply was error and canceled. Supportive care as directed. Push fluids and rest, Tylenol or Motrin as needed for fever or discomfort, warm salt water gargles, throat lozenges as needed. Patients symptoms should improve in the next 48 hours, eval by PCP or UC if symptoms have not improved with treatment. Discussed in depth warning symptoms that require immediate eval. Patient verbalizes understanding and is agreeable to treatment plan [employer] Other Evaluation note 04-03-2022 Note Date & Type Note Facility 04-03-2022 Evaluation note Encounter Date Diagnosis Assessment Notes Mar, Vaginitis (ICD-10 - N76.0) urine dip is clear. we will send for culture to r/o UTI and contact pt with results. pt declines pelvic exam or further diagnostic testing at this time stating that her symptoms are not very significant and she will just do watchful waiting. we discussed that pt should try to keep the area clean and dry, avoid irritating products/cloth ing. she may also try otc antifungal medication if symptoms persist. she should f/u if symtoms persists or worsens despite treatment. [employer] Other Evaluation note Note Date & Type Note Facility Evaluation note No Information [employer] [facility] [employer] Other Evaluation note Note Date & Type Note Facility Evaluation note [facility] History general Narrative - Reported Note Date & Type Note Facility History general Narrative - Reported Type Medical History 2008 Pelvic Exam Done Medical History Pap and Pelvic Exam Medical History Follows with Dr. Chrystal neves for Pap and Pelvic Medical History migraines Surgical History lasik eye surgery Surgical History Torn left ligament in ankle Hospitalization History none Hospitalization History SEE ABOVE SURGICAL HX [employer] Other History general Narrative - Reported Note Date & Type Note Facility History general Narrative - Reported Type Medical History 2008 Pelvic Exam Done Medical History Pap and Pelvic Exam Medical History Follows with Dr. Chrystal neves for Pap and Pelvic Medical History migraines Medical History anxiety Surgical History lasik eye surgery Surgical History Torn left ligament in ankle Hospitalization History none Hospitalization History SEE ABOVE SURGICAL HX [employer] Other Summary Purpose Family History No Family History Records Found Relationship Condition Age at Onset Recorded Date/T clark grandparent Unknown Advance Directives No Advanced Directives Records Found Advance Directive Response Recorded Date/ Time Advance Directives No April 06 7:39pm Additional Source Comments INFORMATION SOURCE (unrecogn ized section and content) DATE CREATED AUTHOR 03/31/2018 [facility] DATE CREATED AUTHOR AUTHOR'S ORGANIZ ATION 01/29/2023 [facility] DATE CREATED AUTHOR AUTHOR'S ORGANIZ ATION 01/26/2024 [facility] DATE CREATED AUTHOR AUTHOR'S ORGANIZ ATION 02/03/2024 [facility] EPIC REASON FOR VISIT (unrecogniz ed section and content) DYSURIANo InformationSORE TH RAOTLEFT LEG SWOLLEN,PAIN, LUMPS IN GROIN AREA Care Teams (unrecognized sec tion and content) Team Status: Inactive Member Role Status Dates Dena Renteria APRN Attending Provider Active Start: October 29, 2023 End: October 29, 2023 Team Status: Inactive Member Role Status Dates Brigitte Roberts Attending Provider Active Start: 2023 End: January 24, 2024 Goals (unrecognized section and content) Goals may be documented in a n alternate section FOR RECORDS PERTAINING TO PATIENTS WHO ARE OR HAVE BEEN ENROLLED IN A CHEMICAL DEPENDENCY/SUBSTANCEABUSE PROGRAM, SOME INFORMATION MAY BE OMITTED. This clinical summary was aggregated from multiple sources. Caution should be exercised in using it in the provision of clinical care. This summary normalizes information from multiple sources, and as a consequence, information in this document may materially change the coding, format and clinical context of patient data. In addition, data may be omitted in some cases. CLINICAL DECISIONS SHOULD BE BASED ON THE PRIMARY CLINICAL RECORDS. [facility] [employer] [facility]. provides no warranty or guarantee of the accuracy or completeness of information in this document.
--- NOTE | 2024-03-04 21:00 | ED.EYEPROB1 ---
HPI - Eye Problem General Chief complaint: Eye Problems Stated complaint: BLEACH IN EYE Time Seen by Provider: 03/04/24 20:49 Source: patient Mode of arrival: walk-in Limitations: no limitations History of Present Illness HPI Narrative: 38-year-old female presented to the emergency department for exposure to her right eye of 1 or 2 drops of liquid chlorine. This occurred at home just before coming into the emergency department. She copiously irrigated her eye at home. She states it feels a little bit better now. No symptoms in the left eye. No other exposure. Related Data Previous Rx's ?Medication ?Instructions ?Recorded meclizine 25 mg tablet 25 mg PO TID PRN dizziness #30 tabs 01/19/24 methylprednisolone 4 mg tablets in 4 mg PO DAILY #21 ea 01/19/24 a dose pack (Medrol ([place])) ketorolac 0.5 % eye drops (Acular) 1 drp ophthalmic (eye) Q6H PRN eye 03/04/24 irritation #5 mL Allergies Allergy/AdvReac Type Severity Reaction Status Date / Time latex Allergy Mild Rash Verified 03/04/24 20:47 Penicillins AdvReac Mild Verified 03/04/24 20:47 Sulfa (Sulfonamide AdvReac Mild Verified 03/04/24 20:47 Antibiotics) Review of Systems ROS Narrative A ten point review of systems is negative except as noted above. Exam Narrative Exam Narrative: Nurses note and vital signs reviewed and patient is not hypoxic. General: The patient appears well and in no apparent distress. Patient is resting comfortably on cart. Skin: Warm, dry, no pallor noted. There is no rash noted. Head: Normocephalic, atraumatic Eye: Right conjunctiva may be very minimally injected. The left is normal. No foreign bodies are noted. No periorbital erythema. Extraocular movements are intact. Fluorescein staining and Bryant lamp examination show no corneal abrasions or james. Ears, Nose, Mouth, and Throat: oral mucosa is moist. Nares patent. Cardiovascular: Regular Rate and Rhythm Respiratory: Patient is in no distress, no accessory muscle use, lungs are clear to auscultation, no wheezing, rales or rhonchi Back: non-tender GI: Normal bowel sounds, no tenderness to palpation Musculoskeletal: The patient has no evidence of calf tenderness, no pitting edema, symmetrical pulses noted bilaterally Neurological: A&O, normal speech Psychiatric: Cooperative Constitutional Vital Signs, click to edit/add: Last Vital Signs Temp 98.4 F 03/04/24 20:44 Pulse 89 03/04/24 20:44 Resp 18 03/04/24 20:44 BP 153/77 H 03/04/24 20:44 Pulse Ox 99 03/04/24 20:44 O2 Del Method Room Air 03/04/24 20:44 Course Vital Signs Vital signs: Vital Signs Temperature 98.4 F 03/04/24 20:44 Pulse Rate 89 03/04/24 20:44 Respiratory Rate 18 03/04/24 20:44 Blood Pressure 153/77 H 03/04/24 20:44 Pulse Oximetry 99 03/04/24 20:44 Oxygen Delivery Method Room Air 03/04/24 20:44 Temperature 98.4 F 03/04/24 20:44 Pulse Rate 89 03/04/24 20:44 Respiratory Rate 18 03/04/24 20:44 Blood Pressure 153/77 H 03/04/24 20:44 Pulse Oximetry 99 03/04/24 20:44 Oxygen Delivery Method Room Air 03/04/24 20:44 MDM - Eye Problem MDM Narrative Medical decision making narrative: She has minimal findings on exam and there is no corneal burn. She was prescribed Acular that she will fill if she still symptomatic in the morning. Treatment diagnosis and follow-up were discussed with the patient. Discharge Plan Discharge Stand Alone Forms: Portal Instructions Chief Complaint: Eye Problems Clinical Impression: Chemical exposure of eye Patient Disposition: Home, Self-Care Time of Disposition Decision: 20:56 Condition: Good Mode of Transportation: Private Vehicle Prescriptions / Home Meds: New ketorolac [Acular] 0.5 % drops 1 drp ophthalmic (eye) Q6H PRN (Reason: eye irritation) Qty: 5 0RF No Action methylprednisolone [Medrol ([place])] 4 mg tablets,dose pack 4 mg PO DAILY Qty: 21 0RF meclizine 25 mg tablet 25 mg PO TID PRN (Reason: dizziness) Qty: 30 0RF Print Language: [place] Instructions: Conjunctivitis (ED) Referrals: ADARSH PATEL [Primary Care Provider] - 1 week
== END 2024-03-04 21:06 | disposition home or self-care (01) ==
PROVIDERS: Emergency Provider Emergency Medicine
DX: Z77.098 Contact with and (suspected) exposure to other hazardous, chiefly nonmedicinal, chemicals (principal)
CPT/HCPCS: 99284

== ENCOUNTER 2024-11-15 21:33 | Emergency (ER) | payer BC, SELFPAY ==
[2024-11-15] VITALS (12 sets, daily range): BP systolic 122–141; BP diastolic 75–89; PULSE 66–82; TEMP 36.8–37.1; O2SAT 97–100; BMI 26.5
--- OUTSIDE RECORDS SUMMARY | 2024-11-15 21:40 | XMS_ITS | CCD ---
Author Organization [facility] Care Team Providers Care Animal Therapist Name Role Phone Kirstin Lund Unavailable RenteriaDena atkins Unavailable OMKAR ., DR TUCKER Attending Unavailabl e KARASIK ., DR TUCKER Consulting Unavailabl e KARASIK ., DR TUCKER Admitting Unavailabl e MISC, DR TOBIN Primary Care Unavailable Mark Roberts Attending Provider Sarmad Crandall DO Primary Care Provider Jackie AUDIO/VIDEO ENGINEERGala Unavailable NON STAFF Primary Care Provider Unavailabl e Kay Hutchinson APRN Attending Provider [phone] GALA PATEL Primary Care Physician [phone] Timmis, Ramiro H Referring Unavailable Timmis, Ramiro H Attending Unavailable Timmis, Ramiro H Admitting Unavailable Timmis, Ramiro H Referring Unavailable Timmis, Ramiro H Attending Unavailable Timmis, Ramiro H Admitting Unavailable Timmis, Ramiro H Attending Unavailable Timmis, Ramiro H Referring Unavailable Timmis, Ramiro H Admitting Unavailable Timmis, Ramiro H Attending Unavailable Timmis, Ramiro H Referring Unavailable Timmis, Ramiro H Admitting Unavailable TIMMIS, RAMIRO H Attending Unavailable SARMAD CRANDALL R Attending Unavailable KARLEY SARMAD R Referring Unavailable TIMMIS, RAMIRO H Attending Unavailable SARMAD CRANDALL R Referring Unavailable GALA PATEL L Referring Unavailable CAMIAN SARMAD R Referring Unavailable CONNIEYGALA Attending Unavailable SARMAD CRANDALL R Referring Unavailable GALA PATEL Attending Unavailable MARK ROBERTS Attending Unavailable MARK ROBERTS Attending Unavailable Mark Roberts Admitting Unavailable Mark Roberts Attending Unavailable Kay Hutchinson Admitting Unavailable Kay Hutchinson Attending Unavailable NON STAFF Primary Care Unavailable Allergies Allergy Classification Reported Allergen(s) Allergy Type Date of Onset Reaction(s) Facility (8 sources) Penicillin; Translations: [penicillin] Drug Allergy rash, Eruption of skin (disorder) [facility] (4 sources) Sulfonamides (Antibiotic) Propensity to adverse reactions Unknown [facility] Other (4 sources) Latex; Translations: [Latex] Drug allergy (disorder) 08-07-20 19 Eruption of skin (disorder) [facility] (5 sources) Penicillins Drug allergy (disorder) 04-19-20 16 rash [facility] (1 source) Sulfonamides (Antibiotic) Drug allergy (disorder) 04-19-20 16 [facility] (5 sources) Sulfonamides (Antibiotic); Translations: [Sulfa (Sulfonamide Antibiotics)] Allergy to substance 10-29-19 24 Rash [facility] (11 sources) Latex Allergy to substance 02-25-20 23 [facility] (11 sources) Penicillin G Drug Allergy 02-25-[address] [facility] (11 sources) Sulfonamides (Antibiotic) Drug Intolerance 03-08-[address] [facility] (3 sources) Lidocaine; Translations: [lidocaine] Drug Allergy 10-25-19 25 nausea/vomitin g [facility] (3 sources) Prilocaine; Translations: [prilocaine] Drug Allergy 10-25-19 25 nausea/vomitin g [facility] (4 sources) Sulfamethoxazole ; Translations: [sulfamethoxazol e] Drug Allergy Eruption of skin (disorder) [facility] (1 source) Penicillins Drug allergy (disorder) 10-25-19 25 [facility] Medications Current Medications Medication Drug Class(es) Dates Sig (Normalized) Sig (Original) acetaminophen 325 mg / butalbital 50 mg / caffeine 40 mg oral tablet (2 sources) Barbiturate, Central Nervous System Stimulant, Methylxanthine Start: 01-14-2018 take 1 tablet by mouth every four hours for headache APAP/butalbital/c affeine 325 mg-50 mg-40 mg Tab 1 tab(s), Oral, q4hr for headache, 15 tab(s), Refill(s) 0 Start Date: 01/14/18 Status: Ordered albuterol 0.83 mg/ml inhalation solution (1 source) beta2-Adrenergic Agonist Start: 11-10-2024 End: 11-10-2025 albuterol (2.5 MG/3ML) 0.083% nebulizer solution Indications: SOB (shortness of breath) Take 3 mL (2.5 mg) by nebulization 4 (four) times a day as needed for wheezing or shortness of breath 300 mL 3 11/10/2024 11/10/2025 Active Albuterol (Eqv-Proventil HFA) 90 mcg/inh inhalation aerosol (2 sources) Start: 10-27-2024 Albuterol (Eqv-Proventil HFA) 90 mcg/inh inhalation aerosol = 2 inh, Inhalation, PRN Shortness of breath or wheezing Start Date: 10/27/24 Status: Ordered Albuterol Sulfate 90 mcg/actuation HFA aerosol inhaler (4 sources) Start: 10-25-2024 Albuterol Sulfate 90 mcg/actuation HFA aerosol inhaler Active 2 INH INHALATION EVERY 4-6 HOURS as needed for shortness of breath or wheezing 6.7 October 25, 2024 12:00am Start: 09-06-2024 Albuterol Sulf ate 90 mcg/actuation HFA aerosol inhaler Active 2 INH INHALATION EVERY 4-6 HOURS as needed for shortness of breath or wheezing 6.7 September 06, 2024 12:00am clindamycin 10 mg/ml topical lotion (11 sources) Lincosamide Antibacterial Start: 01-12-2024 clindamycin (Cleocin T) 1 % lotion Apply 1 application topically in the morning and 1 application before bedtime. 01/12/2024 Active Clindamycin Phosphate 1 % lotion (2 sources) Start: 09-06-2024 Clindamycin Phosphate 1 % lotion Active TOPICAL September 06, 2024 12:00am doxycycline hyclate 100 mg oral capsule (4 sources) Tetracycline-class Drug Start: 10-27-2024 take 1 capsule by mouth twice daily doxycycline hyclate 100 mg Cap 100 mg = 1 cap(s), Oral, BID, x7 days Start Date: 10/27/24 Status: Ordered Start: 10-25-2024 take 1 capsule by mo [facility] twice daily Doxycycline Hyclate 100 mg capsule Active 100 MG PO Twice daily 14 October 25, 2024 12:00am escitalopram 5 mg oral tablet (15 sources) Serotonin Reuptake Inhibitor Start: 02-02-2024 End: 02-01-2025 take 1 tablet by mouth once daily escitalopram (Lexapro) 5 MG tablet Indications: Anxiety and depression (CMS/HCC) Take 1 tablet (5 mg) by mouth Daily 90 tablet 3 02/02/2024 02/01/2025 Active take 1 tablet by shaista every twenty-four hours Lexapro 5 MG 1 tablet Orally Once a day Active fluticasone propionate 0.05 mg/actuat metered dose nasal spray (12 sources) Corticosteroid Start: 09-01-2024 End: 09-01-2025 take 2 spray(s) nasal route once daily fluticasone (Flonase) 50 MCG/ACT nasal spray Indications: Lesion of nasal mucosa Administer 2 sprays into each nostril Daily Shake gently. Before first use, prime pump. After use, clean tip and replace cap. 16 g 11 09/01/2024 09/01/2025 Active meclizine hydrochloride 25 mg oral tablet (6 sources) Antiemetic Start: 09-06-2024 take 1 tablet by mouth once daily Meclizine 25 mg tablet Active 25 MG PO Daily September 06, 2024 12:00am Start: 01-14-2018 End: 09-11-2024 take 1 tablet by mouth three times daily as needed for dizziness meclizine 25 mg Tab 25 mg = 1 tab(s), Oral, TID, PRN for dizziness, # 15 tab(s), Refills(s) 0 Start Date: 01/14/18 Status: Ordered methylPREDNISolone 4 mg oral tablet (4 sources) Corticosteroid Start: 09-06-2024 End: 10-25-2024 take 1 tablet by mouth once Methylprednisolone (Medrol (Domingo)) 4 mg tablets,dose pack Active 0 PO per package directions October 25, 2024 12:00am PO PER PKG DIR methylPREDNISolone 4 mg tab dosepak (2 sources) Start: 10-27-2024 methylPREDNISolone 4 mg tab dosepak Oral, Daily, as directed on package labeling Start Date: 10/27/24 Status: Ordered Multiple Vitamin (Multi Vitamin) tablet (11 sources) Multiple Vitamin (Multi Vitamin) tablet 1 (one) time each day at the same time. Active multivitamin with minerals (2 sources) Start: 10-27-2024 multivitamin with minerals Oral, Daily Start Date: 10/27/24 Status: Ordered rimegepant 75 mg disintegrating oral tablet (10 sources) Start: 09-01-2024 take 1 tablet by mouth once daily as needed for headache Rimegepant Sulfate (Nurtec) 75 MG tablet dispersible Indications: Migraine without status migrainosus, not intractable, unspecified migraine type (CMS/HCC) Take 75 mg by mouth Daily as needed (headache) 2 tablet 09/01/2024 Active tretinoin 1 mg/ml topical cream (11 sources) Retinoid tretinoin (Retin -A) 0.1 % cream 1 (one) time each day at the same time. Active Completed/Discontinued Medications Medication Drug Class(es) Dates [...] Orally once for 1 day Oct, Not-Taking hydrOXYzine pamoate 25 mg oral capsule (3 sources) Antihistamine Start: 05-18-2024 End: 09-06-2024 take 1 tablet by mouth four times daily as needed Hydroxyzine Hcl 25 mg tablet Discontinued 25 MG PO Four times daily as needed May 17, 2024 11:00pm September 06, 2024 10:29am ketorolac tromethamine 5 mg/ml ophthalmic solution (3 sources) Nonsteroidal Anti-inflammatory Drug, Cyclooxygenase Inhibitor Start: 05-18-2024 End: 05-18-2024 Ketorolac 0.5 % drops Discontinued DROPS OPHTHALMIC May 17, 2024 11:00pm May 18, 2024 10:35am Start: 05-18-2024 End: 05-18-2024 Ketorolac Discontinued DROPS OPHTHALMIC May 18, 2024 12:00am May 18, 2024 11:35am ondansetron 4 mg disintegrating oral tablet (2 sources) Serotonin-3 Receptor Antagonist Start: 09-06-2024 End: 10-25-2024 take 1 tablet by mouth every eight hours as needed for nausea and vomiting Ondansetron 4 mg tablet,disintegrating Discontinued 4 MG PO Every 8 hours as needed for nausea and vomiting 06 30September 06, 2024 12:00am October 25, 2024 12:37pm predniSONE 10 mg oral tablet (4 sources) Start: 05-18-2024 End: 09-06-2024 Prednisone 10 mg tablet Discontinued 10 MG PO As Directed 17 06May 17, 2024 11:00pm September 06, 2024 10:13am 4 tablets x 3 days, 2 tablets x 3 days, 1 tablet x 3 days Start: 02-23-2023 predniSONE 20 MG take 2 tabs po daily x 5 days Orally Once a day for 5 days January, Active triamcinolone acetonide 1 mg/ml topical cream (3 sources) Corticosteroid Start: 05-18-2024 End: 09-06-2024 Triamcinolone Acetonide 0.1 % cream Discontinued APPLIC TOPICAL May 17, 2024 11:00pm September 06, 2024 10:13am Start: 05-18-2024 Triamcinolone Acetonide Active APPLIC TOPICAL May 18, 2024 12:00am Problems Active Problems Problem Classification Problem Date Documented Date Episodic/Chronic Anxiety disorders (18 sources) Generalized anxiety disorder; Translations: [Generalized anxiety disorder] Onset: 02-01-2024 05-18-2024 Chronic Conditions associated with dizziness or vertigo (2 sources) Vertigo; Translations: [Dizziness and giddiness] 09-01-2024 Episodic Headache; including migraine (20 sources) Migraine; Translations: [Other migraine, not intractable, without status migrainosus] Onset: 08-31-2024 05-18-2024 Chronic Immunizations and screening for infectious disease (3 sources) Encounter for screening for human papillomavirus (HPV); Translations: [Contact with or exposure to other viral diseases] Onset: 01-01-2023 09-06-2024 Episodic Lymphadenitis (5 sources) Inguinal lymphadenopathy; Translations: [Localized enlarged lymph nodes] Episodic Menstrual disorders (11 sources) Irregular periods; Translations: [Irregular menstruation, unspecified] Onset: 12-27-2023 12-27-2023 Chronic Nausea and vomiting (4 sources) Nausea and vomiting; Translations: [Nausea with vomiting, unspecified] 09-06-2024 Episodic Nutritional deficiencies (11 sources) Vitamin D deficiency; Translations: [Vitamin D deficiency, unspecified] Onset: 02-01-2024 02-01-2024 Chronic Other and unspecified benign neoplasm (7 sources) Hemangioma; Translations: [Hemangioma of unspecified site] 05-18-2024 Episodic Other lower respiratory disease (3 sources) Dyspnea; Translations: [Shortness of breath] 10-25-2024 Episodic Other lower respiratory disease (2 sources) Cough; Translations: [Cough] 10-25-2024 Episodic Other lower respiratory disease (1 source) Respiratory tract infection; Translations: [Other specified respiratory disorders] 10-25-2024 Episodic Other lower respiratory disease (1 source) Other specified respiratory disorders; Translations: [Other diseases of respiratory system, not elsewhere classified] 10-25-2024 Episodic Other lower respiratory disease (1 source) Shortness of breath; Translations: [Shortness of breath] Onset: 10-25-2024 Episodic Other screening for suspected conditions (not mental disorders or infectious disease) (4 sources) Encounter for screening for malignant neoplasm of cervix; Translations: [ENC SCREENING MALIG NEOPLASM CERV] Onset: 12-25-2022 Episodic Other upper respiratory disease (4 sources) Lesion of nasal mucosa; Translations: [Other specified disorders of nose and nasal sinuses] 09-01-2024 Episodic Other upper respiratory disease (4 sources) Lesion of nose; Translations: [Other specified disorders of nose and nasal sinuses] 10-03-2024 Episodic Other upper respiratory disease (2 sources) Polyp of nasal cavity and/or nasal sinus 10-27-2024 Episodic Other upper respiratory disease (1 source) Disorder of the nose; Translations: [Other specified disorders of nose and nasal sinuses] Onset: 11-02-2024 Episodic Other upper respiratory infections (2 sources) Acute pharyngitis, unspecified; Translations: [Streptococcal pharyngitis] Episodic Spondylosis; intervertebral disc disorders; other back problems (5 sources) Sciatica; Translations: [Sciatica, left side] Episodic Unclassified (11 sources) Patient on antidepressant monitoring plan Onset: 02-02-2024 02-02-2024 Unclassified (11 sources) Baseline PHQ-9 Onset: 02-02-2024 02-02-2024 Viral infection (4 sources) Disease caused by 2019-nCoV; Translations: [COVID-19] 09-06-2024 Episodic Past or Other Problems Problem Classification Problem Date Documented Da te Episodic/Chronic Inflammatory diseases of female pelvic organs (1 source) Acute vaginitis Onset: 04-03-2022 Resolved: 04-03-2022 Episodic Other gastrointestinal disorders (11 sources) Slow transit constipation; Translations: [Slow transit constipation] Onset: 08-31-2024 Resolved: 09-01-2024 09-01-2024 Episodic Results Test Name Value Interpretation Reference Range Facility Surgical Pathology Reporton 11-06-2024 Surgical Pathology Report [address] [id number] Surgical Pathology Report Collected Date/Time: 11/02/2024 12:00 EST Pathologist: Anjum GARCIA PhD, Jyoti Haile Received Date/Time: 11/02/2024 12:32 EST Neal GARCIA, Ramiro De Jesus MD, Ramiro Mai Surgical Pathology Report - 11/06/2024 10:22 EST - Auth (Verified) Final Diagnosis RIGHT NASAL LESION, EXCISION: - REACTIVE SQUAMOUS EPITHELIUM WITH FIBROSIS IN LAMINA PROPRIA, COMPATIBLE WITH BITE FIBROMA. - NO ACUTE INFLAMMATION, DYSPLASIA OR MALIGNANCY IDENTIFIED. (Electronic Signature) Jyoti Valero MD PhD 11/06/2024 10:22 Clinical Information Right nasal lesion Pre-Op Diagnosis: Right nasal lesion Procedure: Right nasal lesion removal Post-Op Diagnosis: Right internal nasal lesion Specimen(s) Received Right nasal lesion Gross Description Received in formalin labeled with patient name, number, and right nasal lesion. Received is a round geller/pink firm granular tissue measuring 0.5 x 0.5 cm and has a maximum thickness of 0.5 cm. The margin has a geller/brown rough appearance. This is inked blue. Specimen is bisected and the center has a geller/pink firm granular appearance. It is entirely submitted in one cassette. (DC) DC:[facility] Microscopic Description Microscopic examination performed unless gross only specified. This report was transcribed using voice recognition technology and might contain unintended computerized coal weigher errors. Normal [facility] Comment on above: Performed By: #### [id number] #### [facility] [address] [place] [address] Main OR Intraoperative Recor jorge luis 11-03-2024 Main OR Intraoperative Record Main OR Intraoperative Record IntraOp Document Type FT Summary Primary Physician: Ramiro De Jesus MD Finalized Date/Time: 11/03/24 11:47:53 Pt. Name: ANTONIO GAYTAN /Sex: 1985 Female Med Rec #: [id number] Physician: Ramiro De Jesus MD Financial #: [id number] Pt. Type: A Room/Bed: [facility] Admit/Disch: 11/02/24 09:17:14 - 11/02/24 14:05:00 Institution: Case Times FT Entry 1 Patient Times In Room 11/02/24 11:48:00 Out Room 11/02/24 12:22:00 Procedure Times Start 11/02/24 11:58:00 Stop 11/02/24 12:15:00 Anesthesia Times Start 11/02/24 11:48:00 Stop 11/02/24 12:22:00 Last Modified By: Marcus GOLDBERG, Floridalma Campos 11/02/24 12:22:56 General Comments: 11/03/24 Chart opened to review and send charges [facility]FA Case Attendance FT Entry 1 Entry 2 Entry 3 Case Attendee Denver CRUZ, Monisha De Jesus MD, Ramiro Velazquez RN, Floridalma Campos Role Performed ASSISTANT WRESTLING COACH Surgeon - Primary Um Specialist - Primary Time In 11/02/24 11:48:00 11/02/24 11:48:00 11/02/24 11:48:00 Time Out 11/02/24 12:22:00 11/02/24 12:22:00 11/02/24 12:22:00 Procedure NASAL ENDOSCOPY(Right), NASAL ENDOSCOPY(Right), NASAL ENDOSCOPY(Right), CYST LESION REMOVAL CYST LESION REMOVAL CYST LESION REMOVAL GENERAL ANES(Right) GENERAL ANES(Right) GENERAL ANES(Right) Comments Last Modified By: Marcus GOLDBERG, Floridalma Velazquez RN, Floridalma VelazquezFloridalma mckenzie RN 11/02/24 Marcela Campos 11/02/24 Marcela Campos 11/02/24 12:22:57 12:22:57 12:22:57 Entry 4 Entry 5 Case Attendee Harjit HE, Isrrael García LPN, Azul Barrios Role Performed Scrub - Primary Staff - Other Time In 11/02/24 11:48:00 11/02/24 11:48:00 Time Out 11/02/24 12:22:00 11/02/24 11:55:00 Procedure NASAL ENDOSCOPY(Right), NASAL ENDOSCOPY(Right), CYST LESION REMOVAL CYST LESION REMOVAL GENERAL ANES(Right) GENERAL ANES(Right) Comments helping in room Last Modified By: Marcus GOLDBERG, Floridalma Smart RN 11/02/24 Marcela Campos 11/02/24 12:22:57 12:22:57 Perioperative Protocols FT Pre-Care Text: Implements protective measures prior to operative or invasive procedure, confirms identity before the operative or invasive procedure, verifies operative procedure, surgical site, and laterality Entry 1 Procedure(s) NASAL ENDOSCOPY(Right), Patient Identity Birthday, ID Band CYST LESION REMOVAL Verified (select at Check, Patient GENERAL ANES(Right) least 2): Participation Consents / H and P Anesthesia Consent, Operative Site Present Verified H&P, Surgery/Procedure Marking Verified Consent Surgical Site Yes Laterality Verified Yes Verified Procedure Verified Yes Correct Patient Yes Position Verified Availability Equipment, Medication Prep Dry n/a Verified (If Applicable) PreOp Antibiotic No Time Out Neal GARCIA, Ramiro Ken, Berny Participants Monisha Goff CRNA, Ferrer RN, Floridalma Campos, Isrrael Lombardi CST, Kipp LPN, Azul Barrios Time Out Complete 11/02/24 11:58:00 Outcomes Met? Yes Last Modified By: Floridalma Velazquez RN 11/02/24 12:01:32 Post-Care Text: The patient is free from signs and symptoms of injury caused by extraneous objects Allergy Information FT Pre-Care Text: Verifies allergies Entry 1 Allergies Reviewed? Yes Allergies Reviewed Self/Patient With Outcomes Met? Yes Last Modified By: Floridalma Velazquez RN 11/02/24 12:01:37 Post-Care Text: The patient received appropriate medication(s) safely administered during the perioperative period Surgical Procedures FT Entry 1 Entry 2 Procedure Description Procedure NASAL ENDOSCOPY CYST LESION REMOVAL GENERAL ANES Modifiers Right Right Surgeon Description REMOVAL OF RIGHT NASAL REMOVAL OF RIGHT NASAL LESION AND CAUTERIZATION LESION AND CAUTERIZATION Primary Procedure No Yes Primary Surgeon Neal GARCIA, Ramiro De Jesus MD, Ramiro Ken Start 11/02/24 11:58:00 11/02/24 11:58:00 Stop 11/02/24 12:15:00 11/02/24 12:15:00 Anesthesia Type General General Surgical Service ENT ENT Wound Class 2 - Clean-Contaminated 2 - Clean-Contaminated Last Modified By: aMrcus GOLDBERG, Floridalma Velazquez RN, Floridalma Campos 11/02/24 Marcela Campos 11/02/24 12:27:59 12:28:09 General Case Data FT Pre-Care Text: Classifies surgical wound, implements aseptic technique, initiates traffic control Entry 1 Case Information OR OR 2 FT Case Level Level 3 Wound Class 2 - Clean-Contaminated Specialty ENT ASA Class 1 Preop Diagnosis RIGHT NASAL LESION Postop Same As Preop Yes Postop Diagnosis RIGHT NASAL LESION Outcomes Met? Yes Last Modified By: Marcus GOLDBERG, Floridalma Campos 11/02/24 12:01:54 Post-Care Text: The patient is free from signs and symptoms of infection Skin Assessment (Pre Procedure) FT Pre-Care Text: Implements protective measures to prevent skin/ tissue injury due to thermal or mechanical sources Evaluates for signs and symptoms of physical injury to skin and tissue Entry 1 Skin Integrity Intact, Lohman, Warm, & Skin Abnorm (more content not included)... Normal [facility] B hCG Qualon 11-02-2024 Beta HCG ( test) Ql Negative Normal [facility] Comment on above: Performed By: #### [id number] #### [facility] [address] [place] [address] CHEMISTRYOrdered By: SYSTEM SYSTEM on 11-02-2024 Potassium [Moles/Vol] 3.6 mmol/L Normal 3.5 - 5.3 mmol/L Remisol Chem Discharge Instructionson Discharge Instructions Discharge Instructions ANTONIO GAYTAN :1985 Visit Date:11/02/2024 Inpatient Discharge Instructions Your Care Team Admitting Physician - Ramiro De Jesus MD Referring Physician - Ramiro De Jesus MD Reason for Your Visit INTERNAL NASAL LESION Your Diagnosis Internal nasal lesion This Is Your Medications List APAP/butalbital/caffei ne (APAP/butalbital/caffe ine 325 mg-50 mg-40 mg Tab) albuterol (Albuterol (Eqv-Proventil HFA) 90 mcg/inh inhalation aerosol) doxycycline (doxycycline hyclate 100 mg Cap) meclizine (meclizine 25 mg Tab) methylPREDNISolone (methylPREDNISolone 4 mg tab dosepak) multivitamin with minerals Procedure History Fixation of tendon of ankle, LASIK - laser assisted in situ keratomileusis. What to do next Instructions From Your Doctor Event Name Event Result Discharge Instructions Freetext Antibiotic ointment to right nose 2 times daily for 2 weeks Discharge Activity Expect mild pain, Expect minimal amount of drainage and/or bleeding, Activity as tolerated Discharge Diet(s) Regular Discharge Instructions Discharge Instructions New Follow Up Appointments after Discharge Follow Up with Ramiro De Jesus When: Medications What How Much When Instructions Next Dose Unchanged albuterol (Albuterol (Eqv-Proventil HFA) 90 mcg/ inh inhalation aerosol) 2 Inhalation Inhalation As needed for Shortness of breath or wheezing Unchanged APAP/ butalbital/ caffeine (APAP/ butalbital/ caffeine 325 mg-50 mg-40 mg Tab) 1 Tablets By Mouth Every 4 hours as needed for for headache Unchanged doxycycline (doxycycline hyclate 100 mg Cap) 1 Capsules By Mouth 2 times a day x7 days Unchanged meclizine (meclizine 25 mg Tab) 1 Tablets By Mouth 3 times a day as needed for for dizziness Unchanged methylPREDNISolone (methylPREDNISolone 4 mg tab dosepak) By Mouth Every day as directed on package labeling Unchanged multivitamin with minerals By Mouth Every day Test Results BMP Potassium Lvl: 3.6 mmol/L (11/02/24 10:02:00) Allergies Latex (Severe rash) penicillin (Rash) sulfamethoxazole (Rash) Education Materials Common Emergency Awareness Tips IS IT A STROKE? Act FAST and Check for these signs: FACE Does the face look uneven? ARM Does one arm drift down? SPEECH Does their speech sound strange? TIME Call at any sign of stroke Heart Attack Signs Chest discomfort: Most heart attacks involve discomfort in the center of the chest and lasts more than a few minutes, or goes away and comes back. It can feel like uncomfortable pressure, squeezing, fullness or pain. Discomfort in upper body: Symptoms can include pain or discomfort in one or both arms, back, neck, jaw or stomach. Shortness of breath: With or without discomfort. Other signs: Breaking out in a cold sweat, nausea, or lightheaded. Remember, MINUTES DO MATTER. If you experience any of these heart attack warning signs, call to get immediate medical attention! Patient Survey You may receive a survey in the mail asking you about your stay with us. We want to hear from you, please share your experience with us by completing your survey. Thank you for choosing [facility]. Avril Award Nomination The AVRIL (Diseases Attacking the Immune SYstem) Award is an international recognition program that honors and celebrates the skillful, compassionate care nurses provide every day. Anyone who experiences or observes amazing care being provided by a nurse is encouraged to submit a nomination. To nominate your nurse, use your smart phone to scan the QR code below. Patient Portal You may access all of your results and other medical record information on our secure patient portal. If you are not signed up for this yet, please contact [email or web address] at [phone] to get signed up today. Patient Name: ANTONIO GAYTAN I have received this information and my questions have been answered. Patient/[employer] Dispatcher Name: Patient/[employer] Dis[employer] Signature: Relationship to Patient: Witness Name/Signature: Date: Normal [facility] Comment on above: Result Comment: Elec tronically Signed By: Jean GOLDBERG, Sheba Ortiz.alyssa\Date and Time Signed: 11/02/24 13:27 EST Inpatient Patient Summaryon 11-02-2024 Inpatient Patient Summary Inpatient Patient Summary [place] [address] [facility] Clinical Discharge Instructions PERSON INFORMATION Name: ANTONIO GAYTAN PHYSICIANS Admitting Physician: Ramiro De Jesus MD Attending Physician: Ramiro De Jesus MD PCP: GALA PATEL CNP Discharge Diagnosis: Internal nasal lesion Comment: PATIENT EDUCATION INFORMATION Instructions: Medication Leaflets: Follow up: With: Address: When: Ramiro De Jesus MEDICATION LIST Medications to Continue with No Changes Other Medications albuterol (Albuterol (Eqv-Proventil HFA) 90 mcg/inh inhalation aerosol) 2 Inhalation Inhalation as needed Shortness of breath or wheezing. APAP/butalbital/caffei ne (APAP/butalbital/caffe ine 325 mg-50 mg-40 mg Tab) 1 Tablets By Mouth every 4 hours as needed for headache. Refills: 0. doxycycline (doxycycline hyclate 100 mg Cap) 1 Capsules By Mouth 2 times a day. x7 days. meclizine (meclizine 25 mg Tab) 1 Tablets By Mouth 3 times a day as needed for dizziness. Refills: 0. methylPREDNISolone (methylPREDNISolone 4 mg tab dosepak) By Mouth every day. as directed on package labeling. multivitamin with minerals By Mouth every day. Comment: Normal [facility] Main OR PACU I Recordon Main OR PACU I Record Main OR PACU I Rec ord PACU Phase I Document Type FT Summary Primary Physician: Ramiro De Jesus MD Finalized Date/Time: 11/02/24 15:09:30 Pt. Name: ANTONIO GAYTAN /Sex: 1985 Female Med Rec #: [id number] Physician: Ramiro De Jesus MD Financial #: [id number] Pt. Type: A Room/Bed: AS01/ Admit/Disch: 11/02/24 09:17:14 - 11/02/24 14:05:00 Institution: Case Times PACU I FT Pre-Care Text: Identifies barriers to communication and implements measures to provide psychological support Develops individualized plan of care, and ensures continuity of care Maintains patient's dignity and privacy, and maintains patient confidentiality Identifies and reports philosophical, cultural, and spiritual beliefs and values Identifies individual values and wishes concerning care Implements aseptic technique, and administers prescribed antibiotic therapy and immunizing agents as ordered Evaluates postoperative tissue perfusion Implements thermoregulation measures, and monitors body temperature Evaluates postoperative respiratory status Evaluates postoperative cardiac status Evaluates postoperative neurological status Assesses pain control, collaborated in initiating patient-controlled analgesia and implements alternative methods of pain control Verifies allergies, administers prescribed medications and solutions, evaluates response to medications Entry 1 In PACU I 11/02/24 12:24:00 Discharge from PACU 11/02/24 12:54:00 I Outcomes Met? Yes Last Modified By: Holly Mendoza RN 11/02/24 15:09:03 Post-Care Text: The patient demonstrates knowledge of the expected response to the operative or invasive procedure The patient's care is consistent with the individualized perioperative plan of care The patient's right to privacy is maintained The patient's value system, lifestyle, ethnicity, and culture are considered, respected, and incorporated into the perioperative plan of care The patient participates in decisions affecting his or her perioperative plan of care The patient is free from signs and symptoms of infection The patient has wound/tissue perfusion consistent with or improved from baseline levels established preoperatively The patient is at or returning to normothermia at the conclusion of the immediate postoperative period The patient's respiratory function is consistent with or improved from baseline levels established preoperatively The patient's cardiovascular status is consistent with or improved from baseline levels established preoperatively The patient's cardiovascular status is consistent with or improved from baseline levels established preoperatively The patient demonstrates and/or reports adequate pain control throughout the perioperative period The patient received appropriate medication(s), safely administered during the perioperative period Acuity Level PACU I FT Entry 1 Start Time 11/02/24 12:24:00 Stop Time 11/02/24 12:54:00 Acuity Level Acuity Level I Last Modified By: Holly Mendoza RN 11/02/24 15:09:19 Finalized By: Holly Mendoza RN Document Signatures Signed By: Holly Mendoza RN 11/02/24 15:09 Holly Mendoza RN 11/02/24 15:09 Normal [facility] Main OR PACU II Recordon Main OR PACU II Record Main OR PACU II Record PACU Phase II Document Type FT Summary Primary Physician: Ramiro De Jesus MD Finalized Date/Time: 11/02/24 14:12:45 Pt. Name: ANTONIO GAYTAN/Sex: 1985 Female Med Rec #: [id number] Physician: Ramiro De Jesus MD Financial #: [id number] Pt. Type: A Room/Bed: [facility]/ Admit/Disch: 11/02/24 09:17:14 - Institution: Case Times PACU II FT Pre-Care Text: Identifies barriers to communication and implements measures to provide psychological support and determines knowledge level Develops individualized plan of care, and ensures continuity of care Maintains patient's dignity and privacy, and maintains patient confidentiality Identifies and reports philosophical, cultural, and spiritual beliefs and values Identifies individual values and wishes concerning care administers prescribed antibiotic therapy and immunizing agents as ordered, Evaluates postoperative tissue perfusion Implements thermoregulation measures, and monitors body temperature Evaluates postoperative respiratory status Evaluates postoperative cardiac status Evaluates postoperative neurological status Assesses pain control, collaborated in initiating patient-controlled analgesia and implements alternative methods of pain control Verifies allergies, administers prescribed medications and solutions, evaluates response to medications Entry 1 In PACU II 11/02/24 12:55:00 Discharge from PACU 11/02/24 14:05:00 II Outcomes Met? Yes Last Modified By: Sheba Pena RN 11/02/24 14:12:41 Post-Care Text: The patient demonstrates knowledge of the expected response to the operative or invasive procedure The patient's care is consistent with the individualized perioperative plan of care The patient's right to privacy is maintained The patient's value system, lifestyle, ethnicity, and culture are considered, respected, and incorporated into the perioperative plan of care The patient participates in decisions affecting his or her perioperative plan of care. The patient is free from signs and symptoms of infection The patient has wound/tissue perfusion consistent with or improved from baseline levels established preoperatively The patient is at or returning to normothermia at the conclusion of the immediate postoperative period The patient's respiratory function is consistent with or improved from baseline levels established preoperatively The patient's cardiovascular status is consistent with or improved from baseline levels established preoperatively The patient's neurological status is consistent with or improved from baseline levels established preoperatively The patient demonstrates and/or reports adequate pain control throughout the perioperative period The patient received appropriate medication(s), safely administered during the perioperative period Finalized By: Sheba Pena RN Document Signatures Signed By: Sheba Pena RN 11/02/24 14:12 Normal [facility] Main OR Preoperative Recordo n 11-02-2024 Main OR Preoperative Record Main OR Preoperative Record PreOp Document Type FT Summary Primary Physician: Ramiro De Jesus MD Finalized Date/Time: 11/02/24 12:07:19 Pt. Name: ANTONIO GAYTAN/Sex: 1985 Female Med Rec #: [id number] Physician: Ramiro De Jesus MD Financial #: [id number] Pt. Type: A Room/Bed: AS01/ Admit/Disch: 11/02/24 09:17:14 - Institution: Case Times PreOp FT Pre-Care Text: Verifies consent for planned procedure, identifies individual values and wishes concerning care, includes family members in perioperative teaching Entry 1 Patient Times. In Pre Surgery 11/02/24 09:20:00 Out Pre Surgery 11/02/24 11:46:00 Outcomes Met? Yes Last Modified By: Floridalma Velazquez RN 11/02/24 12:07:18 Post-Care Text: The patient participates in decisions affecting his or her perioperative plan of care Finalized By: Floridalma Velazquez RN Document Signatures Signed By: Floridalma Velazquez RN 11/02/24 12:07 Normal [facility] Outpatient Surgery Discharge Instructionon 11-02-2024 Outpatient Surgery Discharge Instruction Outpatient Surgery Discharge Instruction [place] [id number] Patient Discharge Instructions PERSON INFORMATION Name: ANTONIO GAYTAN Date of : 1985 Current Date: 11/02/2024 12:27:35 PHYSICIANS Admitting Physician: Ramiro De Jesus MD Discharge Diagnosis: Internal nasal lesion ANTONIO GAYTAN has been given the following list of follow-up instructions, prescriptions, and patient education materials: PATIENT FOLLOW-UP INFORMATION Diet: Regular Discharge Activity: Expect mild pain, Expect minimal amount of drainage and/or bleeding, Activity as tolerated Additional Instructions: Antibiotic ointment to right nose 2 times daily for 2 weeks IF UNABLE TO CONTACT YOUR PHYSICIAN AND YOU FEEL IT IS AN EMERGENCY, GO TO THE NEAREST EMERGENCY ROOM OR CALL 911 LUCILA Casas ERIN, have received the attached patient education materials/instructions and have verbalized understanding: May we do a follow up call? Yes No I was present when discharge instructions were given Patient Signature Date Clinican/Nurse Signature ___ Date Follow up: With: Address: When: Ramiro De Jesus Pharmacy Information: You may receive a survey from [employer] asking you to rate your care experience. Your feedback is important and will help us understand what we do well and how we can improve the quality of care we provide to you, your loved ones and our community. It???s an honor to serve you. Thank you for choosing [facility] HERE ARE THE MEDICATION CHANGES THAT OCCURRED DURING YOUR HOSPITAL STAY Medications to Continue with No Changes Other Medications albuterol (Albuterol (Eqv-Proventil HFA) 90 mcg/inh inhalation aerosol) 2 Inhalation Inhalation as needed Shortness of breath or wheezing. APAP/butalbital/caffei ne (APAP/butalbital/caffe ine 325 mg-50 mg-40 mg Tab) 1 Tablets By Mouth every 4 hours as needed for headache. Refills: 0. doxycycline (doxycycline hyclate 100 mg Cap) 1 Capsules By Mouth 2 times a day. x7 days. meclizine (meclizine 25 mg Tab) 1 Tablets By Mouth 3 times a day as needed for dizziness. Refills: 0. methylPREDNISolone (methylPREDNISolone 4 mg tab dosepak) By Mouth every day. as directed on package labeling. multivitamin with minerals By Mouth every day. PATIENT EDUCATION INFORMATION Instructions: Medication Leaflets: Normal [facility] Potassiumon 11-02-2024 Potassium [Moles/Vol] 3.6 mmol/L Normal 3.5-5.3 [facility] Comment on above: Performed By: #### 2 [id number] #### [facility] [address] [place] [address] SEROLOGYOrdered By: Marivel wiggins on 11-02-2024 Beta HCG ( test) Ql Negative (11/02/24 10:02 AM) Normal [facility] Man Sero BMPon 10-27-2024 Anion gap [Moles/Vol] 12 mmol/L Normal 6-16 [facility] Comment on above: Performed By: #### 2 [id number] #### [facility] [address] [place] [address] Calcium [Mass/Vol] 9.6 mg/dL Normal 8.9-11.1 [facility] Comment on above: Performed By: #### 2 [id number] #### [facility] [address] [place] [address] Chloride [Moles/Vol] 102 mmol/L Normal 101-111 [facility] Comment on above: Performed By: #### 2 [id number] #### [facility] [address] [place] [address] CO2 [Moles/Vol] 28 mmol/L Normal 21-31 [facility] Comment on above: Performed By: #### 2 [id number] #### [facility] [address] [place] [address] Creatinine [Mass/Vol] 0.6 mg/dL Normal 0.5-1.3 [facility] Comment on above: Performed By: #### 2 [id number] #### [facility] [address] [place] [address] Glucose [Mass/Vol] 74 mg/dL Normal 55-199 [facility] Comment on above: Performed By: #### 2 [id number] #### [facility] [address] [place] [address] Potassium [Moles/Vol] 3.2 mmol/L Low 3.5-5.3 [facility] Comment on above: Performed By: #### 2 [id number] #### [facility] [address] [place] [address] Sodium [Moles/Vol] 139 mmol/L Normal 135-145 [facility] Comment on above: Performed By: #### 2 [id number] #### [facility] [address] [place] [address] Urea nitrogen [Mass/Vol] 11 mg/dL Normal 5-21 [facility] Comment on above: Performed By: #### 2 [id number] #### [facility] [address] [place] [address] Urea nitrogen/Creatinine [Mass ratio] 18 No Units Normal 10-20 [facility] Comment on above: Performed By: #### 2 [id number] #### [facility] [address] [place] [address] CBC w/ Auto Diffon 5 Basophils/100 WBC (Bld) 0.4 % Normal 0.0-2.0 [facility] Comment on above: Performed By: #### 2 [id number] #### [facility] [address] [place] [address] Erythrocyte distribution width (RBC) [Ratio] 13.3 % Normal 10.9-14.2 [facility] Comment on above: Performed By: #### 2 [id number] #### [facility] [address] [place] [address] Hematocrit (Bld) [Volume fraction] 44.4 % Normal 34.0-46.0 [facility] Comment on above: Performed By: #### 2 [id number] #### [facility] [address] [place] [address] Neutrophils/100 WBC (Bld) 46.3 % Normal 36.0-75.0 [facility] Comment on above: Performed By: #### 2 [id number] #### [facility] [address] [place] [address] Platelet mean volume (Bld) [Entitic vol] 9.8 fL Normal 6.4-10.8 [facility] Comment on above: Performed By: #### 2 [id number] #### [facility] [address] [place] [address] Basophils/Leukocytes Auto (Bld) [Pure # fraction] 0.0 E9/L Normal 0.0-0.2 [facility] Comment on above: Performed By: #### 2 [id number] #### [facility] [address] [place] [address] Eosinophils (Bld) [#/Vol] 0.0 E9/L Normal 0.0-0.5 [facility] Comment on above: Performed By: #### 2 [id number] #### [facility] [address] [place] [address] Eosinophils/100 WBC (Bld) 0.0 % Normal 0.0-8.0 [facility] Comment on above: Performed By: #### 2 [id number] #### [facility] [address] [place] [address] Hemoglobin (Bld) [Mass/Vol] 14.8 g/dL Normal 12.0-16.0 [facility] Comment on above: Performed By: #### 2 [id number] #### [facility] [address] [place] [address] Lymphocytes (Bld) [#/Vol] 1.4 E9/L Normal 1.0-4.0 [facility] Comment on above: Performed By: #### 2 [id number] #### [facility] [address] [place] [address] Lymphocytes/100 WBC (Bld) 40.0 % Normal 14.0-50.0 [facility] Comment on above: Performed By: #### 2 [id number] #### [facility] [address] [place] [address] MCH (RBC) [Entitic mass] 28.0 pg Normal 27.0-34.0 [facility] Comment on above: Performed By: #### 2 [id number] #### [facility] [address] [place] [address] MCHC (RBC) [Mass/Vol] 33.3 g/dL Normal 31.4-36.0 [facility] Comment on above: Performed By: #### 2 [id number] #### [facility] [address] [place] [address] MCV (RBC) [Entitic vol] 84.0 fL Normal 80.0-100.0 [facility] Comment on above: Performed By: #### 2 [id number] #### [facility] [address] [place] [address] Monocytes (Bld) [#/Vol] 0.5 E9/L Normal 0.2-1.0 [facility] Comment on above: Performed By: #### 2 [id number] #### [facility] [address] [place] [address] Neutrophils (Bld) [#/Vol] 1.6 E9/L Low 2.0-7.5 [facility] Comment on above: Performed By: #### 2 650081 #### [facility] [address] [place] [address] Platelets (Bld) [#/Vol] 212.0 E9/L Normal 150.0-500.0 [facility] Comment on above: Performed By: #### 2 [id number] #### [facility] [address] [place] [address] RBC (Bld) [#/Vol] 5.3 E12/L Normal 4.3-5.9 [facility] Comment on above: Performed By: #### 2 [id number] #### [facility] [address] [place] [address] WBC corrected for nucl RBC Auto (Bld) [#/Vol] 3.5 E9/L Low 4.0-11.0 [facility] Comment on above: Performed By: #### 2 [id number] #### [facility] [address] [place] [address] CHEMISTRYOrdered By: SYSTEM SYSTEM on 10-27-2024 Anion gap [Moles/Vol] 12 mmol/L Normal 6 - 16 mEq/L R [facility] Chem Calcium [Mass/Vol] 9.6 mg/dL Normal 8.9 - 11. 1 mg/dL [facility] Chloride [Moles/Vol] 102 mmol/L Normal 101 - 1 11 mmol/L [facility] CO2 [Moles/Vol] 28 mmol/L Normal 21 - 31 mmol/L [facility] Creatinine [Mass/Vol] 0.6 mg/dL Normal 0.5 - 1.3 mg/dL [facility] eGFR 118 mL/min/1.73 m2 Normal >=59mL/mi n/1 .73 m2 [facility] Glucose [Mass/Vol] 74 mg/dL Normal 55 - 199 mg/dL [facility] Potassium [Moles/Vol] 3.2 mmol/L Low 3.5 - 5.3 mmol/L [facility] Sodium [Moles/Vol] 139 mmol/L Normal 135 - 145 mmol/L [facility] Urea nitrogen [Mass/Vol] 11 mg/dL Normal 5 - 21 mg/dL [facility] Urea nitrogen/Creatinine [Mass ratio] 18 mg/mg Normal 10 - 20 [facility] CBC W/ AUTO DIFFon 09-29 EOSINOPHILS/100 LEUKOCYTES:NFR:PT:BLD :QN:AUTOMATED COUNT 0 % 0.0 - 8.0 % [facility] are EOSINOPHILS:NCNC:PT:B LD:QN: 0 [facility] BASOPHILS/LEUKOCYTES: NFR.DF:PT:BLD:QN:AUTO MATED COUNT 0 [facility] ERYTHROCYTE MEAN CORPUSCULAR HEMOGLOBIN CONCENTRATION:MCNC:PT :RBC:QN 33.3 [facility] ERYTHROCYTE MEAN CORPUSCULAR HEMOGLOBIN:ENTMASS:PT :RBC:QN 28 pg 27.0 - 34.0 pg [facility] ERYTHROCYTE MEAN CORPUSCULAR VOLUME:ENTVOL:PT:RBC: QN:AUTOMATED COUNT 84 fL 80.0 - 100.0 fL [facility] ERYTHROCYTES:NCNC:PT: BLD:QN:AUTOMATED COUNT 5.3 [facility] HEMOGLOBIN:MCNC:PT:BL D:QN: 14.8 [facility] LEUKOCYTES 3.5 Low [facility] MONOCYTES:NCNC:PT:BLD :QN:AUTOMATED COUNT 0.5 [facility] are [facility] NEUTROPHILS:NCNC:PT:B LD:QN:AUTOMATED COUNT 1.6 [facility] PLATELETS:NCNC:PT:BLD :QN:AUTOMATED COUNT 212 [facility] are Interpretation and review of laboratory results Abnormal [facility] Lymphocytes/100 WBC (Bld) 40 % 14.0 - 50.0 % [facility] LYMPHOCYTES:NCNC:PT:B LD:QN: 1.4 [facility] Original Ordering Provider: MD Ramiro De Jesus [facility] HEMATOLOGYOrdered By: SYSTEM SYSTEM on 10-27-2024 Basophils/100 WBC (Bld) 0.4 % Normal 0.0 - 2.0 % [facility] Basophils/Leukocytes Auto (Bld) [Pure # fraction] 0.0 E9/L Normal 0.0 - 0.2 E9/L [facility] Eosinophils (Bld) [#/Vol] 0.0 E9/L Normal 0.0 - 0.5 E9/L [facility] Eosinophils/100 WBC (Bld) 0.0 % Normal 0.0 - 8.0 % [facility] Erythrocyte distribution width (RBC) [Ratio] 13.3 % Normal 10.9 - 14.2 % [facility] Hematocrit (Bld) [Volume fraction] 44.4 % Normal 34.0 - 46.0 % [facility] Hemoglobin (Bld) [Mass/Vol] 14.8 g/dL Normal 12.0 - 16.0 gm/dL [facility] Lymphocytes (Bld) [#/Vol] 1.4 E9/L Normal 1.0 - 4.0 E9/L [facility] Lymphocytes/100 WBC (Bld) 40.0 % Normal 14.0 - 50.0 % [facility] MCH (RBC) [Entitic mass] 28.0 pg Normal 27.0 - 34.0 pg [facility] MCHC (RBC) [Mass/Vol] 33.3 g/dL Normal 31.4 - 36.0 gm/dL [facility] MCV (RBC) [Entitic vol] 84.0 fL Normal 80.0 - 100.0 fL [facility] Monocytes (Bld) [#/Vol] 0.5 E9/L Normal 0.2 - 1.0 E9/L [facility] Monocytes/100 WBC (Bld) 13.3 % Normal 4.0 - 14.0 % [facility] Neutrophils (Bld) [#/Vol] 1.6 E9/L Low 2.0 - 7.5 E9/L [facility] Neutrophils/100 WBC (Bld) 46.3 % Normal 36.0 - 75.0 % [facility] Platelet mean volume (Bld) [Entitic vol] 9.8 fL Normal 6.4 - 10.8 fL [facility] Platelets (Bld) [#/Vol] 212.0 E9/L Normal 150.0 - 500.0 E9/L [facility] RBC (Bld) [#/Vol] 5.3 E12/L Normal 4.3 - 5.9 E12/L [facility] WBC corrected for nucl RBC Auto (Bld) [#/Vol] 3.5 E9/L Low 4.0 - 11.0 E9/L [facility] eGFRon 10-27-2024 eGFR 118 mL/min/1.73 m2 Normal >=59 [facility] Comment on above: Performed By: #### 1 [id number] #### [facility] [address] [place] [address] X-ray reportOrdered By: Aydin Plaza on 10-25-2024 Study [address] [address] XRay Report Signed Patient: Antonio Gaytan MR#: [id number] : 1985 Acct:[id number] Age/Sex: 39 / F ADM Date: 5 Loc: XDUCLY Room: Type: [facility] Attending Dr: Kay Hutchinson APRN Copies to: Kay Hutchinson APRN~ Ordering Provider: Kay Hutchinson APRN Date of Service: 10/25/24 XR/XR chest 2V*: R06.02 - Shortness of breath Chest 2 views CLINICAL HISTORY: Rectal cough shortness of breath nausea for one day. COMPARISON: Chest 04/26/2009. FINDINGS: Heart appears normal in size. Lungs are clear. No free air. XR/XR chest 2V* IMPRESSION: NO ACUTE CARDIOPULMONARY ABNORMALITY. Impression dictated by: Sylvester Plaza Jr., D.O.10/25/2024 2:04 PM Dictation Location: [facility]- Transcribed By: [facility] 10/25/24 1404 Dictated By: Sylvester Plaza Jr, DO 10/25/24 140 Signed By: 10/25/24 140 [facility] XR chest 2V*on 10-25-2024 XR chest 2V* [facility] Main [place] [id number] XRay Report Signed Patient: Antonio Gaytan MR#: [id number] : 1985 Acct:[id number] Age/Sex: 39 / F ADM Date: 10/25/24 Loc: XDUC Room: Type: [facility] Attending Dr: Kay Hutchinson APRN Copies to: Kay Hutchinson APRN Ordering Provider: Kay Hutchinson APRN Date of Service: 10/25/24 XR/XR chest 2V*: R06.02 - Shortness of breath Chest 2 views CLINICAL HISTORY: Rectal cough shortness of breath nausea for one day. COMPARISON: Chest 04/26/2009. FINDINGS: Heart appears normal in size. Lungs are clear. No free air. XR/XR chest 2V* IMPRESSION: NO ACUTE CARDIOPULMONARY ABNORMALITY. Impression dictated by: Sylvester Plaza Jr., D.O.10/25/2024 2:04 PM Dictation Location: [place] [address] Transcribed By: [facility] 10/25/24 1404 Dictated By: Sylvester Plaza Jr, DO 10/25/24 1403 Signed By: 10/25/24 1404 Normal [facility] CT SINUS WOon 09-25-2024 CT SINUS WO Exam: CT SINUS WO History: Nasal mucosal lesion. Technique: Multiple contiguous axial images were obtained of the maxillofacial bones without contrast. Multiplanar reformats were obtained. All CT scans at this facility use dose modulation, iterative reconstruction, and/or weight based dosing when appropriate to reduce radiation dose to as low as reasonably achievable. Comparison: None available Findings: Maxillary Sinuses: Clear. Ethmoid sinuses: Clear. Sphenoid sinuses: Clear. There is sphenoid pneumatization that extends inferior and posterior to the sella, resulting in a thin posterior bony margin of the clivus, consistent with sellar type pneumatization. Frontal sinuses: Clear. Right sphenoethmoidal recess: Clear. Left sphenoethmoidal recess: Clear. Right ostiomeatal complex and frontal recess: Clear. Left ostiomeatal complex and frontal recess: Clear. Nasal septum: Minimal leftward deviation. There is a 3 mm soft tissue lesion of the anterior nasal cavity as seen on axial series 3 image 14 of uncertain etiology for which correlation is recommended. Other: Keros type 2 olfactory fossa. No Onodi or Aileen cells. Mastoid air cells & middle ears: Clear. The middle ears are unremarkable. Soft tissues & Brain: No acute abnormality identified. Orbital contents are within normal limits. IMPRESSION: Paranasal sinus disease as detailed. ELECTRONICALLY SIGNED BY: Chi De La Torre, DO Normal Not Available COVID Cepheidon 09-06-2024 SARS-CoV-2 (COVID-19) RNA TG+probe Ql (Unsp spec) COVID Cepheid [facility] - Microbiology an d Antimicrobial susceptibilityon 09-06-2024 SARS-CoV-2 (COVID-19) RNA TG+probe Ql (Unsp spec) Positive [facility] No Panel Informationon 09-06 POC Influenza A (PCR) Negative [facility] POC Influenza B (PCR) Negative [facility] MR LUMBAR SPINE WO CONTRASTo n 04-19-2024 MR LUMBAR SPINE WO CONTRAST EXAM: MR LUMBAR SPINE WO CONTRAST History: lumbar pain, left leg weakness Technique: Multiplanar multisequence MRI of the lumbar spine was obtained without intravenous contrast. Comparison: None available Findings: The conus medullaris ends normally. The alignment of the lumbar spine is anatomic. The vertebral body heights are well maintained. There is no aggressive bone marrow signal abnormality. No disc desiccation. Intervertebral disc heights are maintained. L1-L2: No significant disc bulge or high-grade spinal canal or neuroforaminal stenosis. L2-L3: No significant disc bulge or high-grade spinal canal or neuroforaminal stenosis. L3-L4: No significant disc bulge or high-grade spinal canal or neuroforaminal stenosis. L4-L5: No significant disc bulge or high-grade spinal canal or neuroforaminal stenosis. L5-S1: No significant disc bulge or high-grade spinal canal or neuroforaminal stenosis. Visualized paravertebral soft tissues appear within normal limits. IMPRESSION: No significant disc bulge. No high-grade neural foraminal or spinal canal stenosis. ELECTRONICALLY SIGNED BY: Chi De La Torre DO Normal Not Available Martin 01-24-2024 L Specimen: [id number] Received: 01/25/24 Status: СВЕТЛАНА Vigil Num: [id number] Spec Type: Surgical Subm Dr: Mark Roberts Tissues: A Endometrium - Biopsy (EMB) Procedures: HE/2, Gross/Micro L4 Age/ Patient Sex Location Account Attending Physician Antonio Gaytan 38/F [facility] [id number] Mark Roberts SPEC NUM: [id number] RECD: 01/25/24 STATUS: СВЕТЛАНА VIGIL NUM: [id number] LUÍS: 01/24/24- SUBM DR: Mark Roberts ENTERED: 01/25/24 [facility] DR: [place],Lab SPEC TYPE: Surgical DEPT: PAZ [...] Clinical history: Menorrhagia with irregular. CPT Codes 53555 ---- ---- Specimen: [id number] Received: 01/25/24 Status: СВЕТЛАНА Vigil Num: [id number] Spec Type: Surgical Subm Dr: Mark Roberts Tissues: A Endometrium - Biopsy (EMB) Procedures: HE/2, Gross/Micro L4 ---- Patient: Antonio Gaytan [id number] (Continued) ---- Signed (signature on file) Perez Mercedes MD 01/26/24 1309 Normal [facility] PAP ACOG PANEL 2: 30 to 65on 01-04-2023 . . Normal [facility] Comment on above: Result Comment: Perf ormed at: WB Performed By: #### [id number] #### [facility] [address] [place] [address] Dr. Jyoti Valero Age Gdln ACOG Testing 30-65 Normal [facility] Comment on above: Performed By: #### [id number] #### [facility] [address] [place] [address] Dr. Jyoti Valero DIAGNOSIS: Comment Normal [facility] Comment on above: Result Comment: NEGA TIVE FOR INTRAEPITHELIAL LESION OR MALIGNANCY. CELLULAR CHANGES ASSOCIATED WITH INFLAMMATION ARE PRESENT. THIS SPECIMEN WAS RESCREENED PART OF OUR CROTCH PIECE BASTER PROGRAM. Performed at: WB Performed By: #### [id number] #### [facility] [address] [place] [address] Dr. Jyoti Valero HPV Aptima Negative Normal Negative [facility] Comment on above: Result Comment: This nucleic acid amplification test detects fourteen high-risk HPV types (16,18,31,33,35,39,45,51,52,56,58,59,66,68) without differentiation. Performed at: =G Performed By: #### [id number] #### [facility] [address] [place] [address] Dr. Jyoti Valero HPV Genotype Reflex Comment Normal [facility] Comment on above: Result Comment: Crit eria not met, HPV Genotype not performed. Performed at: WB Performed By: #### [id number] #### [facility] [address] [address] [address] Jyoti Valero Methodology: Comment Normal [facility] Comment on above: Result Comment: This liquid based ThinPrep(R) pap test was screened with the use of an image guided system. Performed at: WB Performed By: #### [id number] #### [facility] [address] [place] [address] Dr. Jyoti Valero Note: Comment Normal [facility] Comment on above: Result Comment: The Pap smear is a screening test designed to aid in the detection of premalignant and malignant conditions of the uterine cervix. It is not a diagnostic procedure and should not be used as the sole means of detecting cervical cancer. Both false-positive and false-negative reports do occur. . Performed at: WB Performed By: #### [id number] #### [facility] [address] [place] [address] Dr. Jyoti Valero Performed by: Comment Normal [facility] Comment on above: Result Comment: Sandrine Arredondo, Tractor Mechanic (ASCP) Performed at: WB Performed By: #### [id number] #### [facility] [address] [place] [address] Dr. Jyoti Valero QC reviewed by: Comment Normal [facility] Comment on above: Result Comment: Juancarlos Cassidy, Supervisory Tractor Mechanic (ASCP) Performed at: WB Performed By: #### [id number] #### [facility] [address] [place] [address] Dr. Jyoti Valero Specimen adequacy: Comment Normal [facility] Comment on above: Result Comment: Sati sfactory for evaluation. Endocervical and/or squamous metaplastic cells (endocervical component) are present. Performed at: WB Performed By: #### [id number] #### [facility] [address] [place] [address] Dr. Jyoti Valero Quick Strepon 11-08-2022 S. pyogenes Org specific cx Ql (Throat) Positive [employer] Other Quick Strep [employer] Other Urinalysis - AUTOMATEDon Appearance (U) clear [employer] Other Bilirubin Ql (U) Negative [email or web address] Other Color (U) yellow [employer] Other Glucose Ql (U) Negative [employer] Other Hemoglobin Ql (U) Negative [employer] Other Ketones Ql (U) Negative [employer] Other Nitrite Ql (U) Negative [employer] Other pH (U) 5.0 [pH] [employer] Other Protein Ql (U) Negative [employer] Other Specific gravity (U) [Rel density] 1.015 [employer] Other Urobilinogen (U) [Mass/Vol] 0.2 mg/dL [employer] Other Urinalysis - AUTOMATED [employer] Other Vital Signs Date Time Vital Sign Value Performing Clinician Facility 11-10-2024 10:35-0500 Body height 160 cm Ramiro De Jesus MD Work Phone: [facility] 11-10-2024 10:35-0500 Body mass index (BMI) [Ratio] 25.15 kg/m2 Ramiro De Jesus MD Work Phone: [facility] 11-10-2024 10:35-0500 Body weight 64.41 kg Ramiro De Jesus MD Work Phone: [facility] 11-10-2024 10:35-0500 Diastolic blood pressure 88 mm[Hg] Ramiro De Jesus MD Work Phone: [facility] 11-10-2024 10:35-0500 Heart rate 88 /min Ramiro De Jesus MD Work Phone: [facility] 11-10-2024 10:35-0500 Systolic blood pressure 123 mm[Hg] Ramiro De Jesus MD Work Phone: [facility] 11-02-2024 13:49-0500 Heart rate 64 /min Ramiro Timmis [facility] 11-02-2024 13:49-0500 SaO2% (BldA) [Mass fraction] 100 % Ramiro Timmis [facility] 11-02-2024 13:49-0500 Body temperature 98.42 [degF] Ramiro Timmis [facility] 11-02-2024 13:49-0500 Blood Pressure Location Ramiro Timmis [facility] 11-02-2024 13:49-0500 Diastolic blood pressure 69 mm[Hg] Ramiro Timmis [facility] 11-02-2024 13:49-0500 Mean blood pressure 83 mm[Hg] Ramiro Timmis [facility] 11-02-2024 13:49-0500 Systolic blood pressure 109 mm[Hg] Ramiro Timmis [facility] 11-02-2024 13:48-0500 Respiratory rate 16 /min Ramiro Timmis [facility] 11-02-2024 12:59-0500 Heart rate 84 /min Ramiro Timmis [facility] 11-02-2024 12:59-0500 SaO2% (BldA) [Mass fraction] 98 % Ramiro Timmis [facility] 11-02-2024 12:59-0500 Respiratory rate 16 /min Ramiro Timmis [facility] 11-02-2024 12:59-0500 Body temperature 97.88 [degF] Ramiro Timmis [facility] 11-02-2024 12:58-0500 Blood Pressure Location Ramiro Timmis [facility] 11-02-2024 12:58-0500 Diastolic blood pressure 79 mm[Hg] Ramiro Timmis [facility] 11-02-2024 12:58-0500 Mean blood pressure 93 mm[Hg] Ramiro Timmis [facility] 11-02-2024 12:58-0500 Systolic blood pressure 120 mm[Hg] Ramiro Timmis [facility] 11-02-2024 12:54-0500 Blood Pressure Location Ramiro Timmis [facility] 11-02-2024 12:54-0500 Body temperature 98.06 [degF] Ramiro Timmis [facility] 11-02-2024 12:54-0500 Diastolic blood pressure 69 mm[Hg] Ramiro Timmis [facility] 11-02-2024 12:54-0500 Heart rate 75 /min Ramiro Timmis [facility] 11-02-2024 12:54-0500 Respiratory rate 21 /min Ramiro Timmis [facility] 11-02-2024 12:54-0500 SaO2% (BldA) [Mass fraction] 100 % Ramiro Timmis [facility] 11-02-2024 12:54-0500 Systolic blood pressure 109 mm[Hg] Ramiro Timmis [facility] 11-02-2024 12:39-0500 Respiratory rate 10 /min Ramiro Timmis [facility] 11-02-2024 12:34-0500 Respiratory rate 14 /min Ramiro Timmis [facility] 11-02-2024 12:24-0500 Body temperature 98.42 [degF] Ramiro Timmis [facility] 11-02-2024 12:20-0500 Respiratory rate 21 /min Ramiro Timmis [facility] 11-02-2024 09:40-0500 Mean blood pressure 95 mm[Hg] Ramiro Timmis [facility] 11-02-2024 09:38-0500 Body temperature 97.88 [degF] Ramiro Timmis [facility] 10-27-2024 09:51-0500 Diastolic blood pressure 78 mm[Hg] Ramiro Timmis [facility] 10-27-2024 09:51-0500 Heart rate 79 /min Ramiro Timmis [facility] 10-27-2024 09:51-0500 Mean blood pressure 92 mm[Hg] Ramiro Timmis [facility] 10-27-2024 09:51-0500 Systolic blood pressure 121 mm[Hg] Ramiro Timmis [facility] 10-27-2024 09:50-0500 Heart rate 83 /min Ramiro Timmis [facility] 10-27-2024 09:50-0500 SaO2% (BldA) [Mass fraction] 99 % Ramiro Timmis [facility] 10-27-2024 09:50-0500 Body temperature 98.24 [degF] Ramiro Timmis [facility] 10-27-2024 09:49-0500 Blood Pressure Location Ramiro Timmis [facility] 10-27-2024 09:49-0500 Diastolic blood pressure 83 mm[Hg] Ramiro Timmis [facility] 10-27-2024 09:49-0500 Mean blood pressure 96 mm[Hg] Ramiro Timmis [facility] 10-27-2024 09:49-0500 Respiratory rate 16 /min Ramiro Timmis [facility] 10-27-2024 09:49-0500 Systolic blood pressure 123 mm[Hg] Ramiro Timmis [facility] 10-03-2024 11:26-0500 Body height 160 cm Ramiro De Jesus MD Work Phone: [facility] 10-03-2024 11:26-0500 Body mass index (BMI) [Ratio] 24.8 kg/m2 Ramiro De Jesus MD Work Phone: [facility] 10-03-2024 11:26-0500 Body weight 63.5 kg Ramiro De Jesus MD Work Phone: [facility] 10-03-2024 11:26-0500 Diastolic blood pressure 84 mm[Hg] Ramiro De Jesus MD Work Phone: [facility] 10-03-2024 11:26-0500 Heart rate 83 /min Ramiro De Jesus MD Work Phone: [facility] 10-03-2024 11:26-0500 Systolic blood pressure 122 mm[Hg] Ramiro De Jesus MD Work Phone: [facility] 09-06-2024 10:23-0500 Body height 157.48 cm [facility] 09-06-2024 10:23-0500 Body mass index (BMI) [Ratio] 25.9 kg/m2 [facility] 09-06-2024 10:23-0500 Body temperature 98.1 [degF] [facility] 09-06-2024 10:23-0500 Body weight 64.41 kg [facility] 09-06-2024 10:23-0500 Diastolic blood pressure 75 mm[Hg] [facility] 09-06-2024 10:23-0500 Heart rate 87 /min [facility] 09-06-2024 10:23-0500 Respiratory rate 18 /min [facility] 09-06-2024 10:23-0500 SaO2% (BldA) [Mass fraction] 96 % [facility] 09-06-2024 10:23-0500 Systolic blood pressure 120 mm[Hg] [facility] 09-01-2024 09:37-0500 Body height 161.9 cm Sarmad Crandall DO Work Phone: [facility] 09-01-2024 09:37-0500 Body mass index (BMI) [Ratio] 24.22 kg/m2 Sarmad Crandall DO Work Phone: [facility] 09-01-2024 09:37-0500 Body temperature 97.81 [degF] Sarmad Crandall DO Work Phone: [facility] 09-01-2024 09:37-0500 Body weight 63.5 kg Sarmad Crandall DO Work Phone: [facility] 09-01-2024 09:37-0500 Diastolic blood pressure 62 mm[Hg] Sarmad Crandall DO Work Phone: [facility] 09-01-2024 09:37-0500 Heart rate 77 /min Sarmad Crandall DO Work Phone: [facility] 09-01-2024 09:37-0500 SaO2% (BldA) [Mass fraction] 99 % Sarmad Crandall DO Work Phone: [facility] 09-01-2024 09:37-0500 Systolic blood pressure 124 mm[Hg] Sarmad Crandall DO Work Phone: [facility] 05-18-2024 11:30-0400 Body height 157.48 cm [facility] 05-18-2024 11:30-0400 Body mass index (BMI) [Ratio] 25.2 kg/m2 [facility] 05-18-2024 11:30-0400 Body temperature 98.3 [degF] [facility] 05-18-2024 11:30-0400 Body weight 62.59 kg [facility] 05-18-2024 11:30-0400 Diastolic blood pressure 75 mm[Hg] [facility] 05-18-2024 11:30-0400 Heart rate 77 /min [facility] 05-18-2024 11:30-0400 Respiratory rate 18 /min [facility] 05-18-2024 11:30-0400 SaO2% (BldA) [Mass fraction] 98 % [facility] 05-18-2024 11:30-0400 Systolic blood pressure 114 mm[Hg] [facility] 10-29-2023 09:25-0500 Body height 157.48 cm Mark Alejandra Work Phone: [facility] 10-29-2023 09:25-0500 Body weight 62.59 kg Mark Alejandra Work Phone: [facility] 10-29-2023 09:25-0500 Diastolic blood pressure 60 mm[Hg] Mark Alejandra Work Phone: [facility] 10-29-2023 09:25-0500 Systolic blood pressure 110 mm[Hg] Mark Alejandra Work Phone: [facility] 02-23-2023 10:10-0400 Body height 157.48 cm Dena Renteria Other [employer] Other 02-23-2023 10:10-0400 Body mass index (BMI) [Ratio] 24.21 kg/m2 Dena Renteria Other [facility] Other 02-23-2023 10:10-0400 Body temperature 98.6 [degF] Dena Renteria Other [facility] Other 02-23-2023 10:10-0400 Body weight 60.06 kg Dena Renteria Other [facility] Other 02-23-2023 10:10-0400 Respiratory rate 18 /min Dena Renteria Other [facility] Other 02-23-2023 10:10-0400 SaO2% (BldA) [Mass fraction] 98 % Dena Renteria Other [facility] Other 11-08-2022 10:20-0500 Body height 157.48 cm Dena Renteria Other [facility] Other 11-08-2022 10:20-0500 Body mass index (BMI) [Ratio] 22.86 kg/m2 Dena Renteria Other [facility] Other 11-08-2022 10:20-0500 Body temperature 97 [degF] Dena Renteria Other [facility] Other 11-08-2022 10:20-0500 Body weight 56.7 kg Dena Renteria Other [facility] Other 11-08-2022 10:20-0500 Respiratory rate 18 /min Dena Renteria Other [facility] Other 11-08-2022 10:20-0500 SaO2% (BldA) [Mass fraction] 98 % Dena Dexter Other [facility] Other 04-03-2022 14:00-0400 Body height 157.48 cm Kirstin Lund Other [facility] Other 04-03-2022 14:00-0400 Body mass index (BMI) [Ratio] 22.86 kg/m2 Kirstin Lund Other [facility] Other 04-03-2022 14:00-0400 Body temperature 97.3 [degF] Kirstin Lund Other [facility] Other 04-03-2022 14:00-0400 Body weight 56.7 kg Kirstin Lund Other [facility] Other 04-03-2022 14:00-0400 Diastolic blood pressure 83 mm[Hg] Kirstin Lnud Other [facility] Other 04-03-2022 14:00-0400 Respiratory rate 18 /min Kirstin Lund Other [facility] Other 04-03-2022 14:00-0400 SaO2% (BldA) [Mass fraction] 99 % Kirstin Lund Other [facility] Other 04-03-2022 14:00-0400 Systolic blood pressure 125 mm[Hg] Kirstin Lund Other [facility] Other Encounters Encounter Date Encounter Type Care Provider Facility Start: 11-10-2024 End: 11-10-2024 Stephanie Beltrans MD Work Phone: [facility] Start: 11-10-2024 End: 11-10-2024 Bamboo flowsheet Ramiro De Jesus MD Work Phone: [facility] Start: 11-10-2024 End: 11-10-2024 Telephone encounter Sarmad Crandall DO Work Phone: [facility] Start: 11-10-2024 End: 11-10-2024 Postop follow up visit related to original px Ramiro De Jesus MD Work Phone: [facility] Comment on above: Internal nasal lesio n (Primary Dx) Start: 11-10-2024 End: 11-10-2024 ambulatory RAMIRO LOBOMIS Not Available Start: 11-02-2024 End: 11-02-2024 Admission to same day surgery center Ramiro De Jesus [facility] Start: 11-02-2024 End: 11-02-2024 ambulatory Ramiro H Timmis Facility[facility] Start: 10-27-2024 End: 10-27-2024 Clinisync Result Encounter Ramiro De Jesus MD Work Phone: [facility] Unsolicited Start: 10-27-2024 End: 10-27-2024 Clinisync Result Encounter Ramiro De Jesus MD Work Phone: [facility] Unsolicited Start: 10-27-2024 End: 10-27-2024 ambulatory Ramiro H Timmis Facility:[facility] Start: 10-27-2024 End: 10-27-2024 Patient encounter procedure Ramiro De Jesus [facility] Start: 10-25-2024 End: 10-25-2024 Patient encounter procedure [facility] [place] Work Phone: Start: 10-25-2024 End: 10-25-2024 ambulatory NON STAFF [facility] Work Phone: Start: 10-25-2024 End: 10-25-2024 ambulatory NON STAFF [facility] Work Phone: Start: 10-25-2024 End: 10-25-2024 Patient encounter procedure [facility] [place] Work Phone: Start: 10-03-2024 End: 10-03-2024 Bamboo flowsricarda De Jesus MD Work Phone: [facility] Start: 10-03-2024 End: 10-03-2024 Bamboo flowsricarda De Jesus MD Work Phone: [facility] Start: 10-03-2024 End: 10-03-2024 Office outpatient new 45 minutes Ramiro De Jesus MD Work Phone: [facility] Comment on above: Internal nasal lesio n Start: 10-03-2024 End: 10-03-2024 ambulatory SARMAD CRANDALL Not Available Start: 09-25-2024 End: 09-25-2024 ambulatory SARMAD R KARLEY Not Available Start: 09-06-2024 End: 09-06-2024 Patient encounter procedure [facility] [place] Work Phone: Start: 09-01-2024 End: 09-01-2024 Bamboo flowsheet Sarmad R Cierraboy DO Work Phone: [facility] Start: 09-01-2024 End: 09-01-2024 Bamboo flowsheet Sarmad R Kaftan DO Work Phone: [facility] Start: 09-01-2024 End: 09-01-2024 Office outpatient visit 15 minutes Sarmad R Karley DO Work Phone: [facility] Comment on above: Lesion of nasal muco sa (Primary Dx); Migraine without status migrainosus, not intractable, unspecified migraine type (CMS/HCC); Vertigo Start: 09-01-2024 End: 09-01-2024 ambulatory SARMAD CRANDALL Not Available Start: 05-18-2024 End: 05-18-2024 ambulatory [facility] Work Phone: Start: 05-18-2024 End: 05-18-2024 Patient encounter procedure [facility] [place] Work Phone: Start: 05-04-2024 End: 05-04-2024 ambulatory GALA PATEL Not Available Start: 04-19-2024 End: 04-19-2024 ambulatory SARMAD CRANDALL Not Available Start: 02-02-2024 End: 02-02-2024 ambulatory SARMAD CRANDALL Not Available Start: 01-24-2024 End: 01-24-2024 ambulatory Mark Joneso [facility] Work Phone: Start: 01-24-2024 End: 01-24-2024 Departed Referred Mark Joneso Work Phone: [facility] Start: 01-24-2024 End: 01-24-2024 ambulatory MARK JONESO Not Available Start: 12-27-2023 Patient encounter procedure Sarmad Crandall DO Work Phone: [facility] Start: 12-27-2023 End: 12-27-2023 ambulatory MARK JONESO Not Available Start: 10-29-2023 End: 10-29-2023 Patient encounter procedure Mark Joneso Work Phone: [facility]- Start: 02-23-2023 End: 02-23-2023 ambulatory Dena Renteria Other [facility] Other Start: 02-23-2023 Office outpatient vi sit 15 minutes Dena Renteria [facility] [place] Start: 12-25-2022 End: 12-25-[address] CAITLIN ESPITIA . Facility: Start: 11-08-2022 End: 11-08-2022 ambulatory Dena Renteria Other [facility] Other Start: 11-08-2022 Office outpatient vi sit 25 minutes Dena Dexter [facility] [place] Start: 04-07-2022 End: 04-07-2022 ambulatory Kirstin Lund Other [facility] Other Start: 04-07-2022 Telephone encounter Kirstin Lund [facility] Start: 04-03-2022 End: 04-03-2022 ambulatory Kirstin Lund Other [facility] Other Start: 04-03-2022 Office outpatient vi sit 15 minutes Kirstin Lund [facility] [place] Procedures Date Procedure Procedure Detail Performing Clinician Start: 11-02-2024 Excision of lesion o f nasal sinus Ramiro De Jesus Start: 10-27-2024 [facility] CBC W/ AUTO DIFF H giana De Jesus MD Work Phone: Start: 10-25-2024 Plain chest X-ray Start: 12-25-2022 Microscopic observat ion [Identifier] in Cervix by Cyto stain Sarmad Crandall DO Work Phone: Cosmetic surgery Kirstin Lund Other Fixation of tendon of ankle Ramiro De Jesus Laser assisted in si tu keratomileusis Ramiro De Jesus Plan of Treatment Date Care Activity Detail Author Start: 12-26-2027 Screening for malign [facility] Start: 11-10-2024 End: 11-10-2024 Patient encounter procedure 11/10/2024 10:20 AM EST Office Visit JHONY BONILLA [address] [place] [address] Ramiro De Jesus MD [address] [facility] [address] [place] [address] Arrived JHONY BONILLA Comment on above: Arrived Start: 10-03-2024 End: 10-03-2024 Patient encounter procedure 10/03/2024 11:30 AM EST Office Visit [facility] [address] [facility] [address] [place] [id number] Ramiro De Jesus MD [address] [facility] [address] [place] [address] Paranasal sinus disease [facility] Comment on above: Paranasal sinus dise ase Start: 09-01-2024 End: 09-01-2025 CT Maxillofacial region WO and W contrast IV CT SINUS WO IV CONTRAST Imaging Routine Lesion of nasal mucosa Expected: 09/01/2024, Expires: 09/01/2025 [facility] Work Phone: Comment on above: Expected: 09/01/2024 , Expires: 09/01/2025 Start: 09-01-2024 End: 09-01-2024 Patient encounter procedure 09/01/2024 9:40 AM EST Office Visit [facility] [address] [place] [address] Sarmad Crandall DO [address] [place] [address] Arrived [facility] Comment on above: Arrived Start: 05-28-2024 Influenza vaccination Influenza Vacc ine (#1) [facility] Immunizations Immunization Date Immunization Notes Care Provider Calvin serrano 08-25-2017 influenza, injectabl e, quadrivalent, preservative free Kirstin Lund Other [facility] 08-25-2017 influenza virus vaccine, unspecified formulation Sarmad Crandall DO Work Phone: [facility] 05-13-2017 tetanus toxoid, redu roni diphtheria toxoid, and acellular pertussis vaccine, adsorbed Sarmad Crandall DO Work Phone: [facility] 03-13-2014 hepatitis B vaccine, adult dosage Sarmad Crandall DO Work Phone: [facility] 10-11-2013 hepatitis B vaccine, adult dosage Sarmad Crandall DO Work Phone: [facility] 09-06-2013 hepatitis B vaccine, adult dosage Sarmad Crandall DO Work Phone: [phone] [place] [address] 05-14-1999 measles, mumps and rubella virus vaccine Sarmad Crandall DO Work Phone: [phone] [place] [address] 05-14-1999 TD(adult) unspecifie d formulation Sarmad Crandall DO Work Phone: [facility] 06-14-1991 diphtheria, tetanus toxoids and pertussis vaccine Sarmad Crandall DO Work Phone: [phone] [place] [address] 06-14-1991 haemophilus influenz ae type b vaccine, conjugate unspecified formulation Sarmad Crandall DO Work Phone: [facility] 06-14-1991 trivalent poliovirus vaccine, live, oral Sarmad Crandall DO Work Phone: [facility] 04-14-1988 diphtheria, tetanus toxoids and pertussis vaccine Sarmad Crandall DO Work Phone: [phone] [place] [address] 04-14-1988 trivalent poliovirus vaccine, live, oral Sarmad Crandall DO Work Phone: [facility] 12-31-1987 measles, mumps and rubella virus vaccine Sarmad Crandall DO Work Phone: [phone] [place] [address] 04-12-1987 diphtheria, tetanus toxoids and pertussis vaccine Sarmad Crandall DO Work Phone: [facility] 02-05-1987 diphtheria, tetanus toxoids and pertussis vaccine Sarmad Crandall DO Work Phone: [phone] [place] [address] 02-05-1987 trivalent poliovirus vaccine, live, oral Sarmad Crandall DO Work Phone: [facility] 1985 diphtheria, tetanus toxoids and pertussis vaccine Sarmad Crandall DO Work Phone: [phone] [place] [address] 1985 trivalent poliovirus vaccine, live, oral Sarmad Crandall DO Work Phone: [facility] Payers Date Payer Category Payer Self-pay [id number] 2022 Medicaid [id number] 2020 [facility] [id number] 1986 Unknown [id number] 2.16840.1.619611.3.579.2. 593 1986 Unknown [id number] 2.16840.1.331175.3.579.2. 727 1986 Unknown [id number] 2.16840.1.106887.3.579.2. 727 1986 Unknown [id number] 2.16840.1.381511.3.579.2. 727 1986 Unknown [id number] 2.16840.1.962492.3.579.2. 1259 1986 Unknown [id number] 2.16840.1.648644.3.579.2. 1259 1986 Unknown [id number] 2.16840.1.883772.3.579.2. 1259 1986 Unknown [id number] 2.16840.1.047156.3.579.2. 1259 1986 Unknown [id number] 2.16840.1.983670.3.579.2. 1259 1986 Unknown [id number] 2.16840.1.118285.3.579.2. 1259 1986 Unknown [id number] 2.16.840.1.843189.3.579.2. 1259 1986 Unknown [id number] 2.16.840.1.837831.3.579.2. 1259 1986 Unknown [id number] 2.16.840.1.593642.3.579.2. 1259 1959 [facility] [id number] 2.16.840.1.999964.19 Medicaid [id number] Private Health Insurance [facility] [employer] [id number] Unknown [id number] 2.16840.1.243645.19 Unknown [id number] 2.16.840.1.636375.3.579.2. 531 Unknown [id number] 2.16.840.1.384079.3.579.2. 531 Social History Date Type Detail Facility Unknown if ever smoked [facility] Other Start: 04-19-2024 End: 08-31-2024 Sex Assigned At [facility] Start: 10-29-2023 End: 12-25-2023 Tobacco smoking status NHIS Never smoked tobacco (finding) [facility] Start: 1985 Sex Assigned At Female [facility] Start: 12-25-2023 Tobacco use and exposure Smokeless tobacco non-user [facility] Start: 09-01-2024 End: 11-10-2024 Alcoholic beverage intake Current drinker of alcohol (finding) [facility] Start: 04-19-2024 End: 08-31-2024 History of Social function [facility] How often do you nee d to have someone help you when you read instructions, pamphlets, or other written material from your doctor or pharmacy [SILS] Never [facility] Do you belong to any clubs or organizations such as bahai groups, unions, fraternal or athletic groups, or school groups? No [facility] Are you now , , , , never or living with a partner? [facility] How often to you hav e a drink containing alcohol? 2-4 times a month [facility] How many standard dr inks containing alcohol do you have on a typical day? 3 or 4 [facility] How often do you hav e 6 or more drinks on 1 occasion? Never [facility] Do you feel stress - tense, restless, nervous, or anxious, or unable to sleep at night because your mind is troubled all the time - these days [OSQ] Very much [facility] (I/We) worried whepia er (my/our) food would run out before (I/we) got money to buy more. Never true [facility] Start: 09-01-2024 Alcohol Comment Socially [facility] Start: 1985 Sex assigned at Not on file [facility] Start: 04-19-2024 Alcoholic beverage intake Lifetime non-drinker (finding) [facility] Start: 10-25-2024 End: 10-26-2024 Sex Female (finding) [facility] Tobacco smoking status No Smokin g Status Entered [facility] Goals Date Patient Goal Desired Activity /State Personal health goal Functional Status Date Assessment Result Facility 10-27-2024 Functional Status No [facility] Clinical Notes 04-03-2022 to 11-10-2024 Ramiro De Jesus MD - 11/10/2024 10:20 AM EST Note Date & Type Note Facility 11-10-2024 History of Presen t illness Narrative Subjective Patient ID: Antonio Gaytan is a 39 y.o. female who presents for Internal nasal lesion (S/p R/O nasal lesion ) Path showed a fibroma Family History Problem Relation Name Age of Onset Bipolar disorder Mother Hypertension Father Melchor Del Vallelevon Hyperlipidemia Father Melchor Del Vallelevon Alcohol abuse Father Melchor Pattondonnie Migraines Father Melchor Shailesh No Known Problems Sister Hypertension Paternal Grandmother Angelique Shailesh Stroke Paternal Grandmother Angelique Cash CVA (cerebral infarction) Asthma Paternal Grandmother Angelique Cash Migraines Paternal Grandmother Angelique Cash Alcohol abuse Paternal Grandfather Yunior Cash Hearing loss Paternal Grandfather Yunior Cash Learning disabilities Daughter David Dull Intellectual Disability Daughter David Dull Active Ambulatory Problems Diagnosis Date Noted Irregular menstrual cycle 12/27/2023 Well woman exam with routine gynecological exam 12/27/2023 Anxiety 02/01/2024 Vitamin D insufficiency 02/01/2024 Migraines (CMS/HCC) 08/31/2024 Resolved Ambulatory Problems Diagnosis Date Noted Slow transit constipation 08/31/2024 Past Medical History: Diagnosis Date Decreased sex drive Dizziness 10/19 Fatigue Headache Hormone disorder Iron deficiency anemia Migraine (CMS/HCC) Non-smoker Vitamin D deficiency Past Surgical History: Procedure Laterality Date ANKLE SURGERY 2008 tendon repair- ankle ligament repair @ [facility] EYE SURGERY NASAL ENDOSCOPY 11/02/[address] De Jesus OTHER SURGICAL HISTORY 2005 Laser surgery @ [facility] VAGINAL DELIVERY 2012, 2018 Allergies Allergen Reactions Latex Other Reaction(s): Latex Exam Gloves Penicillin G Other Reaction(s): Unknown Sulfa Antibiotics Unknown Current Outpatient Medications on File Prior to Visit Medication Sig Dispense Refill clindamycin (Cleocin T) 1 % lotion Apply 1 application topically in the morning and 1 application before bedtime. escitalopram (Lexapro) 5 MG tablet Take 1 tablet (5 mg) by mouth Daily 90 tablet 3 fluticasone (Flonase) 50 MCG/ACT nasal spray Administer 2 sprays into each nostril Daily Shake gently. Before first use, prime pump. After use, clean tip and replace cap. 16 g 11 Multiple Vitamin (Multi Vitamin) tablet 1 (one) time each day at the same time. Rimegepant Sulfate (Nurtec) 75 MG tablet dispersible Take 75 mg by mouth Daily as needed (headache) 2 tablet 0 tretinoin (Retin-A) 0.1 % cream 1 (one) time each day at the same time. No current facility-administered medications on file prior to visit. Objective Last Recorded Vitals Vitals: 11/10/24 1035 BP: 123/88 Pulse: 88 ENT Physical Exam Nose Nose comments: Excision site healing well Assessment/Plan Diagnoses and all orders for this visit: Internal nasal lesion Doing well after R/O nasal lesion. Continue abx oint till crust falls off documented in this encounter [facility] 11-02-2024 Note Progress Note-Physic stacey Patient: ANTONIO GAYTAN Age: 39 years Sex: Female : 1985 Associated Diagnoses: None Author: Felton Agudelo MD Postoperative Information Postoperative disposition: Postoperative disposition: To PACU. Optimetrix number: Optimetrix number [id number]. Anesthetic utilized: General. Health Status Allergies: Allergic Reactions (Selected) Severity Not Documented Latex- Severe rash. Penicillin- Rash. Sulfamethoxazole- Rash. Physical Examination Vital Signs 11/02/2024 13:49 EST Heart Rate Monitored 64 bpm SpO2 100 % 11/02/2024 13:49 EST Temperature Axillary 36.9 DegC HI 11/02/2024 13:49 EST Systolic Blood Pressure 109 mmHg Diastolic Blood Pressure 69 mmHg Blood Pressure Location Right arm Mean Arterial Pressure, Monitered 83 mmHg Pain Assessment: Controlled. General: Awake, Appropriate. Respiratory: Adequate air exchange. Cardiovascular: Stable. Neurological Assessment Anesthetic outcome No anesthetic complications noted. Adequate pain relief. Review / Management Condition: Stable. Plan Transfer/Discharge: Transfer/Discharge Discharge when meets criteria ( To home ). [facility] Comment on above: Result Comment: Elec tronically Signed By: Felton Agudelo MD\.br\Date and Time Signed: 11/02/24 14:40 EST 11-02-2024 Hospital Discharg e instructions Patient Education 11/02/2024 12:36:33 Post Op Patient Instructions - FT (Custom) (CUSTOM) Follow Up Care 10/11/2024 08:10:20 With:Ramiro De Jesus Address:Unknown When: Unknown [facility] 11-02-2024 Evaluation + Plan note Extrac lien from: Title:CARMEN Post-operative Note---General Author: Felton Agudelo MD Date:11/02/24 Plan Transfer/Discharge: Transfer/Discharge Discharge when meets criteria ( To home ). Extracted from: Title:ANES Pre-operative Note 2022 Author:Felton Neil. Date:11/02/24 Plan [place] [employer] (ASA) physical status classification: Class I. Anesthetic Preoperative Plan: Anesthesia General. [facility] [id number] NotePatient Education - Text [facility]02-06-2025 Note Progress Note-Physician Patient: ANTONIO GAYTAN Age: 39 years Sex: Female : 1985 Associated Diagnoses: None Author: Felton Agudelo MD Preoperative Information Anesthesia Preop Info: Time patient last ate or drank 11/02/2024 00:00:00. Anesthesia history: Patient history: None. Family history+: None. Informed consent: Signed by patient. Re-evaluation prior to induction: Initial evaluation reviewed: No significant change. Review of Systems Eye Ear/Nose/Mouth/Throat Respiratory: Cough, covid 8 weeks ago mild residual cough, No shortness of breath, No wheezing. Cardiovascular: Negative. Gastrointestinal: No heartburn. Musculoskeletal Neurologic Health Status Allergies: Allergic Reactions (Selected) Severity Not Documented Latex- Severe rash. Penicillin- Rash. Sulfamethoxazole- Rash., Allergies (3) Active Severity Reaction penicillin Rash sulfamethoxazole Rash Latex Severe rash Current medications: (Selected) Inpatient Medications Ordered HYDROmorphone 1 mg/mL injectable solution: 0.2 mg = 0.2 mL, Injection, IV Push, q2min PRN Pain for 10 dose(s), Stop date Limited # of times, Routine, Start date 11/02/24 10:24:00 EST, 11/02/24 10:24:00 EST Sodium Chloride 0.9% IV Ruth 1000 mL 1,000 mL: 1,000 mL, IV, 150 mL/hr, Routine, Start date 259:30:00 EST, 6.7 hour(s), Total volume (mL): 1,000, 65.4 kg, 1.72, m2 albuterol 0.083% Inh Ruth 3 mL: 2.5 mg, 3 mL, Soln-Inh, NEB, Once, Stop date 11/02/24 10:24:00 EST, Routine, Start date 11/02/24 10:24:00 EST promethazine additive 12.5 mg + Sodium Chloride 0.9% IV Ruth 50 mL (INT) 50 mL: IV Piggyback, Once PRN Nausea/Vomiting, Routine, Start date 11/02/24 10:24:00 EST, 151.5 mL/hr, Infuse over 20 minute(s), 11/02/24 10:24:00 EST Prescriptions Prescribed APAP/butalbital/caffeine 325 mg-50 mg-40 mg Tab: 1 tab(s), Oral, q4hr for headache, 15 tab(s), Refill(s) 0 meclizine 25 mg Tab: 25 mg = 1 tab(s), Oral, TID, PRN for dizziness, # 15 tab(s), Refills(s) 0 Documented Medications Documented Albuterol (Eqv-Proventil HFA) 90 mcg/inh inhalation aerosol: = 2 inh, Inhalation, PRN Shortness of breath or wheezing doxycycline hyclate 100 mg Cap: 100 mg = 1 cap(s), Oral, BID, x7 days methylPREDNISolone 4 mg tab dosepak: Oral, Daily, as directed on package labeling multivitamin with minerals: Oral, Daily, Home Medications (6) Active Albuterol (Eqv-Proventil HFA) 90 mcg/inh inhalation aerosol 2 inh, PRN, Inhalation APAP/butalbital/caffeine 325 mg-50 mg-40 mg Tab 1 tab(s), PRN, Oral, q4hr doxycycline hyclate 100 mg Cap 100 mg = 1 cap(s), Oral, BID meclizine 25 mg Tab 25 mg = 1 tab(s), PRN, Oral, TID methylPREDNISolone 4 mg tab dosepak , Oral, Daily multivitamin with minerals , Oral, Daily , Medications (4) Active Scheduled: (1) albuterol 0.083% Inh Ruth 3 mL [F] 2.5 mg 3 mL, NEB, Once Continuous: (1) Sodium Chloride 0.9% 1,000 mL 1,000 mL, IV, 150 mL/hr PRN: (2) HYDROmorphone 1 mg/mL SOLN [F] 0.2 mg 0.2 mL, IV Push, q2min promethazine 12.5 mg + Sodium Chloride 0.9% 50 mL 12.5 mg 0.5 mL, IV Piggyback, Once Problem list: All Problems Nasal polyp / SNOMED CT [id number] / Confirmed, Active Problems (1) Nasal polyp Histories Past Medical History: No active or resolved past medical history items have been selected or recorded. Family History: No family history items have been selected or recorded. Procedure history: repair of tendon of ankle ([id number]). LASIK - laser assisted in situ keratomileusis ([id number]). Social History Social & Psychosocial Habits Alcohol 10/27/2024 Use: Current Frequency: 1-2 times per week Substance Abuse 10/27/2024 Risk Assessment: Denies Substance Abuse Tobacco 10/27/2024 Risk Assessment: Denies Tobacco Use . Physical Examination Vital Signs 11/02/2024 9:40 EST Heart Rate Monitored 91 bpm Systolic Blood Pressure 122 mmHg Diastolic Blood Pressure 82 mmHg Blood Pressure Location Left arm Mean Arterial Pressure, Monitered 95 mmHg 11/02/2024 9:39 EST Heart Rate Monitored 75 bpm SpO2 97 % 11/02/2024 9:38 EST Respiratory Rate 16 br/min 11/02/2024 9:38 EST Temperature Axillary 36.6 DegC 11/02/2024 9:38 EST Systolic Blood Pressure 119 mmHg Diastolic Blood Pressure 80 mmHg Blood Pressure Location Right arm Mean Arterial Pressure, Monitered 93 mmHg Vital Signs (last 24 hrs) Last Charted Temp Axillary 36.6 DegC (NOV 02 09:38) Heart Rate Monitored 91 bpm (NOV 02 09:40) SBP 122 mmHg (NOV 02 09:40) DBP 82 mmHg (NOV 02 09:40) Airway: Mallampati classification: II (soft palate, fauces, uvula visible). Respiratory: Lungs are clear to auscultation, Respirations are non-labored, adequate air exchange. Cardiovascular: Regular rhythm, No murmur. Review / Management Results review: No qualifying data available . Plan [place] [employer]hesiologists (ASA) physical status classification: Class I. A (more content not included)...[facility] Comment: Electronically Signed By: Magnus GARCIA, Felton Kunz\.br\Date and Time Signed: 11/02/24 10:25 [id number] History of Present illness Narrative* Ramiro De Jesus MD - 10/03/2024 11:30 AM EST Subjective Patient ID: Antonio Gaytan is a 39 y.o. female who presents for Sinusitis Pt reports in May she noted increased RT epistaxis and a polyp in the RT nose. Tx with flonase andhad a CT. Developed Covid in early Aug. CT reviewed and there is a small RT ant/lat nasal mass. Review of Systems All other systems reviewed and are negative. Family History Problem Relation Name Age of Onset Bipolar disorder Mother Hypertension Father Melchor Cash Hyperlipidemia Father Melchor Cash Alcohol abuse Father Melchor Cash Migraines Father Melchor Cash No Known Problems Sister Hypertension Paternal Grandmother Angelique Cash Stroke Paternal Grandmother Angelique Pattonwilliambhargav CVA (cerebral infarction) Asthma Paternal Grandmother Angelique Ivonsunilhortenciajessica Migraines Paternal Grandmother Angelique Crosslevibhargav Alcohol abuse Paternal Grandfather Yunior Pattonjoanne Hearing loss Paternal Grandfather Yunior Pattondonnie Learning disabilities Daughter Cambree Dull Intellectual Disability Daughter Cambree Dull Active Ambulatory Problems Diagnosis Date Noted Irregular menstrual cycle 12/27/2023 Well woman exam with routine gynecological exam 12/27/2023 Anxiety 02/01/2024 Vitamin D insufficiency 02/01/2024 Migraines (CMS/HCC) 08/31/2024 Resolved Ambulatory Problems Diagnosis Date Noted Slow transit constipation 08/31/2024 Past Medical History: Diagnosis Date Decreased sex drive Dizziness 10/19 Fatigue Headache Hormone disorder Iron deficiency anemia Migraine (CMS/HCC) Non-smoker Vitamin D deficiency Past Surgical History: Procedure Laterality Date ANKLE SURGERY 2009 tendon repair- ankle ligament repair @ [facility] EYE SURGERY OTHER SURGICAL HISTORY 2005 Laser surgery @ [facility] VAGINAL DELIVERY 2012, 2018 Allergies Allergen Reactions Latex Other Reaction(s): Latex Exam Gloves Penicillin G Other Reaction(s): Unknown Sulfa Antibiotics Unknown Current Outpatient Medications on File Prior to Visit Medication Sig Dispense Refill clindamycin (Cleocin T) 1 % lotion Apply 1 application topically in the morning and 1 application before bedtime. escitalopram (Lexapro) 5 MG tablet Take 1 tablet (5 mg) by mouth Daily 90 tablet 3 fluticasone (Flonase) 50 MCG/ACT nasal spray Administer 2 sprays into each nostril Daily Shake gently. Before first use, prime pump. After use, clean tip and replace cap. 16 g 11 Multiple Vitamin (Multi Vitamin) tablet 1 (one) time each day at the same time. Rimegepant Sulfate (Nurtec) 75 MG tablet dispersible Take 75 mg by mouth Daily as needed (headache)2 tablet 0 tretinoin (Retin-A) 0.1 % cream 1 (one) time each day at the same time. No current facility-administered medications on file prior to visit. Objective Last Recorded Vitals Vitals: 10/03/24 1126 BP: 122/84 Pulse: 83 ENT Physical Exam Constitutional Appearance: patient appears well-developed, well-nourished and well-groomed, Head and Face Appearance: head appears normal and face appears atraumatic; Ear Ear Canals: right ear canal normal; left ear canal normal; Tympanic Membranes: right tympanic membrane normal; left tympanic membrane normal; Nose External Nose: nares patent bilaterally; Internal Nose: septum normal; Nose comments: 4mm RT ant/lat nasal mass C/W pyogenic granuloma Oral Cavity/Oropharynx Tongue: normal; Oral mucosa: normal; Hard palate: normal; Soft palate: normal; Tonsils: normal; Neck Neck: neck normal; neck palpation normal; Thyroid: thyroid normal; Respiratory Inspection: breathing unlabored; normal breathing rate; Auscultation: breath sounds are clear; Cardiovascular Inspection: extremities are warm and well perfused; no peripheral edema present; Auscultation: regular rate and rhythm; Assessment/Plan Diagnoses and all orders for this visit: Internal nasal lesion - Ambulatory referral to ENT RT nasal lesion c/w a pyogenic granuloma vs hemangioma. I will plan removal under anesthesia as bleeding is likely. [id number] Evaluation note* Diagnosis Onset Date Resolution Status Admit Date COVID acute September 06, 2024 9:58am Nausea and vomiting acute Decem 2023 9:58am Contact with or suspected exposure to severe acute respiratory syndrome noneactive September 062023 9:58am Cough noneactive October 25, 2024 12:26pm [facility] Work Phone: 1(372) 736-470812-11-2024 Evaluation note* Diagnosis Onset Date Resolution Status Admit Date COVID acute September 06, 2024 9:58am Nausea and vomiting acute Decem 2023 9:58am Contact with or suspected exposure to severe acute respiratory syndrome noneactive September 062023 9:58am Respiratory infection acute Keyshawn uary 2024 12:26pm Cough noneactive October 25, 2024 12:26pm [facility] Work Phone: 1(470) 644-777512-06-2024 History of Present illness Narrative* Sarmad Crandall, DO - 09/01/2024 9:40 AM EST Images from the original note were not included. SUBJECTIVE: Antonio Gaytan is a 38 y.o. female presents with chief complaint of No chief complaint on file. Pt presents for a poylup in her right nostril. She states that this was noticed a few months ago but at that time it was not bothersome. Now pt notes that she has noticed an increase in nose bleeds, congestion, breathing issues and has noticed that this has grown in size. Pt has noticed some pain every once and a while. Review of Systems: Review of Systems Problem List: Patient Active Problem List Diagnosis Irregular menstrual cycle Well woman exam with routine gynecological exam Anxiety Vitamin D insufficiency Slow transit constipation Migraines (CMS/HCC) Past Medical History: Past Medical History: Diagnosis Date Decreased sex drive Fatigue Hormone disorder Iron deficiency anemia Non-smoker Vitamin D deficiency Family History: Family History Problem Relation Name Age of Onset Bipolar disorder Mother Hypertension Father Hyperlipidemia Father No Known Problems Sister Hypertension Paternal Grandmother Stroke Paternal Grandmother CVA (cerebral infarction) Allergies: Allergies Allergen Reactions Latex Other Reaction(s): Latex Exam Gloves Penicillin G Other Reaction(s): Unknown Sulfa Antibiotics Unknown Surgical History: Past Surgical History: Procedure Laterality Date ANKLE SURGERY 2009 tendon repair- ankle ligament repair @ [facility] OTHER SURGICAL HISTORY 2005 Laser surgery @ [facility] VAGINAL DELIVERY 2012, 2018 Social History: Social Drivers of Health Tobacco Use: Low Risk (04/19/2024) Patient History Smoking Tobacco Use: Never Smokeless Tobacco Use: Never Passive Exposure: Not on file Alcohol Use: Alcohol Misuse (08/31/2024) AUDIT-C Frequency of Alcohol Consumption: 2-4 times a month Average Number of Drinks: 3 or 4 Frequency of Binge Drinking: Never Financial Resource Strain: Low Risk (08/31/2024) Overall Financial Resource Strain (CARDIA) Difficulty of Paying Living Expenses: Not hard at all Food Insecurity: No Food Insecurity (08/31/2024) Hunger Vital Sign Worried About Running Out of Food in the Last Year: Never true Ran Out of Food in the Last Year: Never true Transportation Needs: No Transportation Needs (08/31/2024) PRAPARE - Transportation Lack of Transportation (Medical): No Lack of Transportation (Non-Medical): No Physical Activity: Inactive (08/31/2024) Exercise Vital Sign Days of Exercise per Week: 0 days Minutes of Exercise per Session: 0 min Stress: Stress Concern Present (08/31/2024) [place] [facility] [employer] - Occupational Stress Questionnaire Feeling of Stress : Very much Social Connections: Moderately Isolated (08/31/2024) Social Connection and Isolation Panel [NHANES] Frequency of Communication with Friends and Family: More than three times a week Frequency of Social Gatherings with Friends and Family: Never Attends Restoration Services: Never Active Member of Clubs or Organizations: No Attends Club or Organization Meetings: Never Marital Status: Intimate Partner Violence: Not on file Depression: Not at risk (04/19/2024) PHQ-2 PHQ-2 Score: 0 Housing Stability: Low Risk (08/31/2024) Housing Stability Vital Sign Unable to Pay for Housing in the Last Year: No Number of Times Moved in the Last Year: 0 Homeless in the Last Year: No Health Literacy: Adequate Health Literacy (08/31/2024) B1300 Health Literacy Frequency of need for help with medical instructions: Never OBJECTIVE: Visit Vitals OB Status Having periods Smoking Status Never Physical Exam Constitutional: Appearance: Normal appearance. HENT: Head: Normocephalic and atraumatic. Nose: Comments: Right nare mucosal growth c/w polyp Eyes: Extraocular Movements: Extraocular movements intact. Conjunctiva/sclera: Conjunctivae normal. Pupils: Pupils are equal, round, and reactive to light. Cardiovascular: Rate and Rhythm: Normal rate and regular rhythm. Pulmonary: Effort: Pulmonary effort is normal. Breath sounds: Normal breath sounds. Abdominal: General: Bowel sounds are normal. Palpations: Abdomen is soft. Musculoskeletal: General: Normal range of motion. Skin: General: Skin is warm and dry. Neurological: General: No focal deficit present. Mental Status: She is alert and oriented to person, place, and time. Psychiatric: Mood and Affect: Mood normal. Thought Content: Thought content normal. Judgment: Judgment normal. No results found for this or any previous visit (from the past 4 weeks). ASSESSMENT AND PLAN: Assessment/Plan Diagnoses and all orders for this visit: Lesion of nasal mucosa Patient advised to return if symptoms worsen and/or persist despite treatment. May need referral toENT if not better - fluticasone (Flonase) 50 MCG/ACT nasal spray; Administer 2 sprays into each nostril Daily Shake gently. Before first use, prime pump. After use, clean tip and replace cap. - CT SINUS WO IV CONTRAST; Future Migraine without status migrainosus, not intractable, unspecified migraine type (CMS/HCC) Patient advised to return if symptoms worsen and/or persist despite treatment. - Rimegepant Sulfate (Nurtec) 75 MG tablet dispersible; Take 75 mg by mouth Daily as needed (headache) Vertigo Patient advised to return if symptoms worsen and/or persist despite treatment. - meclizine (Antivert) 25 MG tablet; Take 1 tablet (25 mg) by mouth 3 (three) times a day as neededfor dizziness for up to 10 days Updated Medications: I have reviewed and reconciled the history and medication list with the patient today. Current Outpatient Medications: clindamycin (Cleocin T) 1 % lotion, Apply 1 application topically in the morning and 1 application before bedtime., Disp: , Rfl: escitalopram (Lexapro) 5 MG tablet, Take 1 tablet (5 mg) by mouth Daily, Disp: 90 tablet, Rfl: 3 Multiple Vitamin (Multi Vitamin) tablet, 1 (one) time each day at the same time., Disp: , Rfl: tretinoin (Retin-A) 0.1 % cream, 1 (one) time each day at the same time., Disp: , Rfl: documented in this encounterSt[facility] [id number] Evaluation note* Encounter Date Diagnosis Assessment Notes Treatment Notes Treatment Clinical Notes January, Sciatica of left eve e (ICD-10 - M54.32) Discussed with patient exam and history is consistent with likely sciatica. Has had on and off issues with this over the last several years. Discussed for acute flare, will treat with prednisone burst x5 days. Finish entire course. May use Aleve [id number] twice daily. Advised to take with food. May use Tylenol in between as needed. Heat and gentle stretching as tolerated encouraged. Avoid strenuous activities until symptoms have improved. Follow-up with PCP if not gradually improving over the next week or significantly worsening. January, Inguinal lymphadenopathy (ICD-10 - R59.0) Discussed lump [...] pain, fever. Patient verbalized understanding treatment plan. [facility] Other 02-12-2023 Evaluation note* Encounter Date Diagnosis Assessment Notes Treatment Notes Treatment Clinical Notes Oct, Sore throat (ICD-10 - J02.9) [...] understanding and is agreeable to treatment plan [facility] Other [id number] Evaluation note* Encounter Date Diagnosis Assessment Notes Treatment Notes Treatment Clinical Notes Mar, Vaginitis (ICD-10 - N76.0) urine [...] the area clean and dry, avoid irritating products/clothing. she may also try otc antifungal medication if symptoms persist. she should f/u if symtoms persists or worsens despite treatment. [facility] Other Evaluation + Plan note Future Appointments Appointment Date:11/02/2024 08:00:00 AM Scheduled Provider: Location:[facility] Appointment Type:Surgery [facility] Evaluation noteNo InformationNort Qriously Other Evaluation noteNo assessment information available [facility] Work Phone: Evalumainl note* Diagnosis Lesion of nasal mucosa- Primary Migraine without status migrainosus, not intractable, unspecified migraine type (CMS/HCC) Vertigo Dizziness and giddiness [facility] Diagnosis Internal nasal lesion [facility] Diagnosis Internal nasal lesion- Primary [facility]* Diagnosis SOB (shortness of breath)- Primary Shortness of breath [facility] N[facility]ative - Reported* Type Description Date Medical History 2007 Pelvic Exam Done Medical History Pap and Pelvic Exam Medical History Follows with Dr. Weldon for Pap and Pelvic Medical History migraines Surgical History lasik eye surgery Surgical History Torn left ligament in ankle Hospitalization History none Hospitalization History SEE ABOVE SURGICAL HX [facility] Other History general Narrative - Reported* Type Description Date Medical History 2007 Pelvic Exam Done Medical History Pap and Pelvic Exam Medical History Follows with Dr. Weldon for Pap and Pelvic Medical History migraines Medical History anxiety Surgical History lasik eye surgery Surgical History Torn left ligament in ankle Hospitalization History none Hospitalization History SEE ABOVE SURGICAL HX [facility] Other Hospital course Narrative No data available for this section [facility] Hospital Discharge instructions No data available for this section [facility] Progress note No data available for this section [facility] Summary Purpose Family History No Family History Records Found Relationship Condition Age at Onset Recorded Date/T clark grandparent Unknown Advance Directives No Advanced Directives Records Found Advance Directive Response Recorded Date/ Time Advance Directives No April 06 7:39pm Advance Directive Response Recorded Date/ Time Advance Directives No April 06 6:39pm Chief Complaint and Reason for Visit Chief Complaint Admit Date Cough, congestion September 06, 2024 9:58am coughing, shortness of breath, chills, p ost covid October 25, 2024 12:26pm R06.02 - Shortness of breath September 1:46pm Reason for Visit Admit Date COVID September 06, 2024 9:58am Nausea and vomiting September 06, 2024 9:58am Contact with or suspected ex posure to severe acute respiratory syndrome September 06, 2024 9:58am Cough October 25, 2024 1 2:26pm Chief Complaint rash on body Additional Source Comments REASON FOR VISIT (unrecogniz ed section and content) Reason Comments Sinusitis Specialty Diagnoses / Procedures Referred By Contac t Referred To Contact Otolaryngology Diagnoses Paranasal sinus disease Procedures RI OFFICE/OUTPATIENT [facility] MDM 60 MINUTES Sarmad Crandall, [address] [facility] [address] [place] [address] Phone: tel: fax: Ramiro De Jesus MD [address] [facility] [address] [place] [address] Phone: tel: fax: Referral ID Status Reason Start Date Expiration Date V isits Requested Visits Authorized [id number] Closed Specialty Services Required 09/26/2024 03/25/2025 1 1 Reason Comments Internal nasal lesion S/p R/O nasal lesi on INFORMATION SOURCE (unrecogn ized section and content) DATE CREATED AUTHOR 01/29/2023 [facility] DATE CREATED AUTHOR AUTHOR'S ORGANIZ ATION 10/29/2024 [facility] DATE CREATED AUTHOR AUTHOR'S ORGANIZ ATION 11/04/2024 [facility] DATE CREATED AUTHOR AUTHOR'S ORGANIZ ATION 11/06/2024 [facility] DATE CREATED AUTHOR AUTHOR'S ORGANIZ ATION 11/07/2024 [facility] DATE CREATED AUTHOR AUTHOR'S ORGANIZ ATION 11/12/2024 [facility] EPIC DATE CREATED AUTHOR AUTHOR'S ORGANIZ ATION 11/12/2024 [facility] Care Teams (unrecognized sec tion and content) Team Status: Inactive Member Role Status Dates Dena Renteria APRN Attending Provider Active Start: October 29, 2023 End: October 29, 2023 Team Status: Inactive Member Role Status Dates Mark Roberts Attending Provider Active Start: 2023 End: January 24, 2024 Team Status: Active Member Role Status Dates NON STAFF Primary Care Provider Active Team Status: Inactive Member Role Status Dates Dena Renteria APRN Attending Provider Active Start: May 18, 2024 End: May 18, 2024 NON STAFF Primary Care Provider Active Start: May 18, 2024 End: May 18, 2024 Animal Therapist Relationship Specialty Start Date End Date Sarmad Crandall DO [address] [facility] [address] [place] [address] PCP - General Family Medicine 02/24/23 Gala Patel NP [address] [facility] [address] [place] [address] PCP - [place] [employer] 03/27/24 Animal Therapist Relationship Specialty Start Date End Date Sarmad Crandall DO [address] [facility] [address] [place] [address] PCP - General Family Medicine 02/24/23 Gala Patel, AUDIO/VIDEO ENGINEER [address] [facility] [address] [place] [address] PCP - [facility] [employer] 03/27/24 Animal Therapist Relationship Specialty Start Date End Date Sarmad Crandall DO [address] [facility] [address] [place] [address] PCP - General Family Medicine 02/24/23 Gala Patel, AG [address] [facility] [address] [place] [address] PCP - [place] [employer] 03/27/24 Animal Therapist Relationship Specialty Start Date End Date Sarmad Crandall DO [address] [facility] [address] [place] [address] PCP - General Family Medicine 02/24/23 Gala Patel, AUDIO/VIDEO ENGINEER [address] [facility] [address] [place] [address] PCP - [employer] [employer] 03/27/24 Team Status: Inactive Member Role Status Dates NON STAFF Primary Care Provider Active Start: September 06, 2024 End: September 06, 2024 Kay Hutchinson APRN Attending Provider Active S tart: September 06, 2024 End: September 06, 2024 Team Status: Inactive Member Role Status Dates NON STAFF Primary Care Provider Active Start: October 25, 2024 End: October 25, 2024 Kay Hutchinson APRN Attending Provider Active S tart: October 25, 2024 End: October 25, 2024 Team Status: Active Member Role Status Dates NON STAFF Primary Care Provider Active Start: October 25, 2024 Kay Hutchinson APRN Attending Provider Active S tart: October 25, 2024 Animal Therapist Relationship Specialty Start Date End Date Sarmad Crandall, DO [address] [facility] [address] [place] [address] PCP - General Family Medicine 02/24/23 Gala Patel, AUDIO/VIDEO ENGINEER [address] [facility] [address] [place] [address] PCP - [place] [employer] 03/27/24 Animal Therapist Relationship Specialty Start Date End Date Sarmad Crandall DO [address] [facility] [address] [place] [address] PCP - General Family Medicine 02/24/23 Gala Patel, AUDIO/VIDEO ENGINEER [address] [facility] [address] [place] [address] PCP - [place] [employer] 03/27/24 Animal Therapist Relationship Specialty Start Date End Date Sarmad Crandall DO [address] [facility] [address] [place] [address] PCP - General Family Medicine 02/24/23 Gala Patel, AUDIO/VIDEO ENGINEER [address] [facility] [address] [place] [address] PCP - [place] [employer] 03/27/24 Animal Therapist Relationship Specialty Start Date End Date Sarmad Crandall DO [address] [facility] [address] [place] [address] PCP - General Family Medicine 02/24/23 Gala Patel, AUDIO/VIDEO ENGINEER [address] [address] [place] [address] PCP - [place] [employer] 03/27/24 Goals (unrecognized section and content) Goals may [...] BE BASED ON THE PRIMARY CLINICAL RECORDS. [facility]. provides no warranty or guarantee of the accuracy or completeness of information in this document.
--- NOTE | 2024-11-15 22:21 | ECG_ITS ---
[facility] Test Date: 2024-11-15 Pat Name: ANTONIO GAYTAN Department: Room: - Gender: Female Information Analyst: : 1985 Requested By: Order Number: [id number] Reading MD: ERIN GRIMM Measurements Intervals [place] Rate: 66 P: 66 GA: 138 QRS: 87 QRSD: 84 T: 46 QT: 366 QTc: 379 Interpretive Statements 1100 Sinus rhythm 9110 normal ECG Compared to ECG 01/19/2024 12:07:11 Sinus arrhythmia no longer present Right-axis deviation no longer present Electronically Signed On 11-16-2024 6:49:25 EST by ERIN GRIMM
--- NOTE | 2024-11-15 22:21 | ED_ITS ---
HPI HPI - General Adult General Chief complaint: Shortness of Breath/Dyspnea Stated complaint: RIB PAIN Time Seen by Provider: 11/15/24 22:17 Source: patient Mode of arrival: walk-in Limitations: no limitations History of Present Illness HPI narrative: 39-year-old female presents to the emergency department for chest pain. She is complaining of pain in the very localized area just underneath the right breast, medially. She has had this for multiple weeks. She had COVID in August and she states the cough never really went away completely. 2 weeks ago she had nasal polyp removed and she has been having this pain since then. It hurts to push on this area or moved. She has not had a fever or productive cough and there was no specific injury. Related Data Home Medications ?Medication ?Instructions ?Recorded ?Confirmed albuterol sulfate 2.5 mg/3 mL mg 11/15/24 (0.083 %) solution for nebulization albuterol sulfate 90 mcg/actuation inhalation 11/15/24 aerosol inhaler Previous Rx's ?Medication ?Instructions ?Recorded meclizine 25 mg tablet 25 mg PO TID PRN dizziness #30 tabs 01/19/24 methylprednisolone 4 mg tablets in 4 mg PO DAILY #21 ea 01/19/24 a dose pack (Medrol (Domingo)) ketorolac 0.5 % eye drops (Acular) 1 drp ophthalmic (eye) Q6H PRN eye 03/04/24 irritation #5 mL methocarbamol 500 mg tablet 500 mg PO Q8H PRN pain #20 tabs 11/15/24 prednisone 10 mg tablet See Rx Instructions .Route 11/15/24 .COMPLEX #30 tabs Allergies Allergy/AdvReac Type Severity Reaction Status Date / Time latex Allergy Mild Rash Verified 11/15/24 22:08 Penicillins Allergy Mild Rash Verified 11/15/24 22:08 Sulfa (Sulfonamide Allergy Mild Rash Verified 11/15/24 22:08 Antibiotics) Opioid HPI Opioid Management Most Recent Opioid Data: Last Pain Scale 8 11/15/24 22:27 11/15/24 Review of Systems ROS Narrative A ten point review of systems is negative except as noted above. PFSH PFSH Social History Little interest or pleasure in doing things: not at all Feeling down, depressed, or hopeless: not at all Exam Narrative Exam Narrative: Nurses note and vital signs reviewed and patient is not hypoxic. General: The patient appears in no acute distress. Skin: Warm, dry, no pallor noted. There is no rash noted. Head: Normocephalic, atraumatic, EOMI. PERRL Ears, Nose, Mouth, and Throat: oral mucosa is moist. Nares patent. Cardiovascular: Regular Rate and Rhythm Respiratory: Patient is in no distress, no accessory muscle use, lungs are clear to auscultation, no wheezing, rales or rhonchi. Breath sounds are equal. She has a localized tender area just below the right breast medially. There is no crepitus bruise or abrasion. There is more laterally a tiny area of skin irritation. There is no blisters to suggest shingles. Back: non-tender GI: Soft and nontender Musculoskeletal: The patient has no evidence of calf tenderness, no pitting edema, symmetrical pulses noted bilaterally Neurological: A&O, normal speech Psychiatric: Cooperative Constitutional Vital Signs, click to edit/add: Last Vital Signs Temp 98.7 F 11/15/24 22:09 Pulse 79 11/15/24 22:09 Resp 11/15/24 22:09 BP 141/84 11/15/24 22:09 O2 Del Method Room Air 11/15/24 22:09 Course Vital Signs Vital signs: Vital Signs Temperature 98.7 F 11/15/24 22:09 Pulse Rate 79 11/15/24 22:09 Respiratory Rate 11/15/24 22:09 Blood Pressure 141/84 11/15/24 22:09 Oxygen Delivery Method Room Air 11/15/24 22:09 Temperature 98.7 F 11/15/24 22:09 Pulse Rate 79 11/15/24 22:09 Respiratory Rate 11/15/24 22:09 Blood Pressure 141/84 11/15/24 22:09 Oxygen Delivery Method Room Air 11/15/24 22:09 Medical Decision Making MDM Narrative Medical decision making narrative: Her workup including chest x-ray is negative. I have no clinical suspicion of pulmonary embolism. Her pain is reproducible with palpation and should be treated symptomatically with prednisone and Robaxin. Treatment diagnosis and follow-up were discussed with the patient. Imaging Data Chest x-ray: Radiologist's impression: No acute cardiopulmonary process ECG Data Attestation: I personally reviewed and interpreted this ECG as follows: (EKG on my interpretation shows normal sinus rhythm with rate of 66 and no acute findings) Discharge Plan Discharge Chief Complaint: Shortness of Breath/Dyspnea Clinical Impression: Chest wall pain Patient Disposition: Home, Self-Care Time of Disposition Decision: 23:48 Condition: Good Mode of Transportation: Private Vehicle Prescriptions / Home Meds: New methocarbamol 500 mg tablet 500 mg PO Q8H PRN (Reason: pain) Qty: 20 0RF prednisone 10 mg tablet See Rx Instructions .ROUTE .COMPLEX Qty: 30 0RF Rx Instructions: 4 by mouth daily for three days then 3 by mouth daily for three days then 2 by mouth daily for three days then 1 by mouth daily for three days No Action ketorolac [Acular] 0.5 % drops 1 drp ophthalmic (eye) Q6H PRN (Reason: eye irritation) Qty: 5 0RF methylprednisolone [Medrol (Domingo)] 4 mg tablets,dose pack 4 mg PO DAILY Qty: 21 0RF meclizine 25 mg tablet 25 mg PO TID PRN (Reason: dizziness) Qty: 30 0RF albuterol sulfate 2.5 mg /3 mL (0.083 %) solution for nebulization albuterol sulfate 90 mcg/actuation HFA aerosol inhaler INHALATION Print Language: Japanese Instructions: Chest Wall Pain (ED) Referrals: Nixon QUARLES [Primary Care Provider] - 1 week
--- NOTE | 2024-11-15 22:29 | PC.NURSE ---
patient complains of right side chest pain when taking a deep breath, onset 2weeks ago but in the last hours she had a coughing episode this pain increased
--- NOTE | 2024-11-15 22:39 | PC.NURSE ---
this patient awake and alert sitting upright on the bed talking to her [id number], i informed this patient that now we are waiting on x-ray results to come back. this patient voices no concerns and shows no sigs of distress
[2024-11-15] MEDS: PREDNISONE 20 MG TABLET 40 MG PO (23:57)
[2024-11-15] MEDS: METHOCARBAMOL 500 MG TABLET PO (23:57)
--- NOTE | 2024-11-16 00:04 | PC.NURSE ---
i gave this patient verbal and paper discharge orders along with 2 e-scripts, and this patient voices yes to understanding these. at time of discharge this patient voices no concerns and shows no sign s of distress
== END 2024-11-16 00:05 | disposition home or self-care (01) ==
PROVIDERS: Emergency Provider Emergency Medicine; PCP Family Medicine
DX: R07.89 Other chest pain (principal)
CPT/HCPCS: 71045; 93005; 99284; J7512

== ENCOUNTER 2025-02-15 15:10 | Outpatient (REF) | payer BC, SELFPAY ==
--- OUTSIDE RECORDS SUMMARY | 2025-02-15 09:44 | XMS_ITS ---
Author Name Auto Generated Organization [facility] Care Team Providers Care Sample Examiner Name Role Phone NON STAFF Primary Care Unavailable Kay Hutchinson Attending Unavailable Kay Hutchinson Admitting Unavailable Timmis, Amirah H Admitting Unavailable Timmis, Amirah H Attending Unavailable Timmis, Amirah H Referring Unavailable Timmis, Amirah H Referring Unavailable Timmis, Amirah H Admitting Unavailable Timmis, Amirah H Attending Unavailable Timmis, Amirah H Referring Unavailable Timmis, Amirah H Admitting Unavailable Timmis, Amirah H Attending Unavailable Timmis, Amirah H Admitting Unavailable Timmis, Amirah H Attending Unavailable Timmis, Amirah H Referring Unavailable Timmis, Amirah H Admitting Unavailable Timmis, Amirah H Attending Unavailable Timmis, Amirah H Referring Unavailable TIMMIS, AMIRAH H Attending Unavailable KAFTAN, SARMAD R Attending Unavailable AMANDA, GALA L Attending Unavailable LONIFTAN, SARMAD R Referring Unavailable AMANDA, GALA L Referring Unavailable DEBRA MOHR Attending Unavailable VERNA, RON Attending Unavailable KAFTAN, SARMAD R Attending Unavailable KAFTAN, SARMAD R Referring Unavailable YAMILAMIRAH SPARKS Attending Unavailable CAMIAN, SARMAD R Referring Unavailable PROBLEMS DATE TYPE CONDITION / CODE ATTENDING STATUS FRANCOIS RCE 10/25/2024 Unknown Shortness of james ath / R06.02(ICD-10) Kay Hutchinson [facility] PROCEDURES No Procedure Records Found RESULTS PROGRESS NOTE-PHYSICIAN Observed: 2024 2:40 PM Status: F Source: [facility] Progress Note-Physician Patient: ANTONIO GAYTAN Age: 39 years Sex: Female : 1985 Associated Diagnoses: None Author: Felton Agudelo MD Postoperative Information Postoperative disposition: Postoperative disposition: To PACU. Optimetrix number: Optimetrix number [id number]. Anesthetic utilized: General. Health Status Allergies: Allergic [...] when meets criteria ( To home ). Result Comment: Electronical ly Signed By: Felton Agudelo MD\.br\Date and Time Signed: 11/02/24 14:40 EST DISCHARGE INSTRUCTIONS Observed: 025 1:26 PM Status: F Source: [facility] Discharge Instructions ANTONIO GAYTAN :1985 Visit Date:11/02/2024 Inpatient Discharge Instructions Your Care Team Admitting Physician - Amirah De Jesus MD Referring Physician - Amirah De Jesus MD Reason for Your Visit INTERNAL NASAL LESION Your Diagnosis Internal nasal lesion This Is Your Medications List APAP/butalbital/caffeine (APAP/butalbital/caffeine 325 mg-50 mg-40 mg Tab) albuterol (Albuterol [...] Up Appointments after Discharge Follow Up with Amirah De Jesus When: Medications What How Much [...] your survey. Thank you for choosing [facility]. Monserrat Award Nomination The MONSERRAT (Diseases Attacking the Immune SYstem) Award is [...] signed up for this yet, please contact [facility] at [phone] to get signed up today. Patient Name: ANTONIO GAYTAN I have received this information and my questions have been answered. Patient/Theater Manager Name: Patient/Theater Manager Signature: Relationship to Patient: Witness Name/Signature: Date: Result Comment: Electronical ly Signed By: Jean GOLDBERG, Sheba Garcia\Date and Time Signed: 11/02/24 13:27 EST PATIENT EDUCATION - TEXT Observed: 11/02 1:25 PM Status: C Source: [facility] Patient Education - Text OPERATIVE REPORT Observed: 11/02/2024 12:29 PM Status: F Source: [facility] Operative Report SURGERY DATE: 11/02/2024 PREOPERATIVE DIAGNOSIS: Right internal nasal lesion POSTOPERATIVE DIAGNOSIS: Right internal nasal lesion OPERATION: Removal of right internal nasal lesion ANESTHESIA: General endotracheal COMPLICATIONS: None FINDINGS: A 4 mm verrucous lesion on the anterolateral nasal wall immediately anterior to the inferior turbinate INDICATIONS: This 39-year-old woman presented with the above lesion for evaluation and removal. PROCEDURE: Patient identified in the Holding Area and taken back to the Operating Room, where she was placed in a supine position. After induction of general endotracheal anesthesia, the face was draped in a sterile fashion and an Afrin- soaked pledget placed in the right nose. Then lidocaine 1% with 1:100,000 epinephrine was infiltrated around the base of the nasal lesion. The nose was then copiously irrigated, and after waiting adequate time for decongestion a [place]-tip Bovie was used to make an incision around and beneath the lesion, which was then removed in its entirety. There was no bleeding. The wound was then re-irrigated and antibiotic ointment placed over the excision site. The patient was then awakened and taken to the Recovery Room in good condition. Kip Shah Jr. Dictated: 11/02/2024 [id number] Transcribed: 11/02/2024 cc:Gala Luby, C.N.P. Result Comment: Electronical ly Signed By: Neal GARCIA, Amirah Ken\.br\Date and Time Signed: 11/16/24 08:50 EST OUTPATIENT SURGERY DISCHARGE INSTRUCTION Observed: 11/02/2024 12:27 PM Status: F Source: [facility] Outpatient Surgery Discharge Instruction [place] [id number] Patient Discharge Instructions PERSON INFORMATION Name: ANTONIO GAYTAN Date of : 1985 Current Date: 11/02/2024 12:27:35 PHYSICIANS Admitting Physician: Amirah De Jesus MD Discharge Diagnosis: Internal nasal [...] were given Patient Signature Date Clinican/Nurse Signature Date Follow up: With: Address: When: Amirah De Jesus Pharmacy Information: You may receive a survey from [employer] asking you to rate your care experience. Your feedback is important and will help us understand what we do well and how we can improve the quality of care we provide to you, your loved ones and our community. It???s an honor to serve you. Thank you for choosing [facility] HERE ARE THE MEDICATION CHANGES THAT OCCURRED DURING YOUR HOSPITAL STAY Medications to Continue with No Changes Other Medications albuterol (Albuterol (Eqv-Proventil HFA) 90 mcg/inh inhalation aerosol) 2 Inhalation Inhalation as needed Shortness of breath or wheezing. APAP/butalbital/caffeine (APAP/butalbital/caffeine 325 mg-50 mg-40 mg Tab) 1 Tablets [...] day. PATIENT EDUCATION INFORMATION Instructions: Medication Leaflets: INPATIENT PATIENT SUMMARY Observed: 02/2025 12:27 PM Status: F Source: [facility] Inpatient Patient Summary [place] [id number] [facility] Clinical Discharge Instructions PERSON INFORMATION Name: ANTONIO GAYTAN PHYSICIANS Admitting Physician: Amirah De Jesus MD Attending Physician: Amirah De Jesus MD PCP: GALA PATEL CNP Discharge Diagnosis: Internal nasal lesion Comment: PATIENT EDUCATION INFORMATION Instructions: Medication Leaflets: Follow up: With: Address: When: mAirah De Jesus MEDICATION LIST Medications to Continue with No Changes Other Medications albuterol (Albuterol (Eqv-Proventil HFA) 90 mcg/inh inhalation aerosol) 2 Inhalation Inhalation as needed Shortness of breath or wheezing. APAP/butalbital/caffeine (APAP/butalbital/caffeine 325 mg-50 mg-40 mg Tab) 1 Tablets [...] with minerals By Mouth every day. Comment: SURGICAL PATHOLOGY REPORT Observed: 02/2025 12:00 PM Status: F Source: [address] [id number]- Surgical Pathology Report Collected Date/Time: 11/02/2024 12:00 EST Pathologist: Anjum GARCIA PhD, Jyoti Haile Received Date/Time: 11/02/2024 12:32 EST Neal GARCIA, Amirah De Jesus MD, Amirah Ken Surgical Pathology Report - 11/06/2024 10:22 EST [...] is entirely submitted in one cassette. (DC) DC:[facility] Microscopic Description Microscopic examination performed unless gross only specified. This report was transcribed using voice recognition technology and might contain unintended computerized utilization reviewer errors. Performed By: #### [id number] # ### [facility] [address] [place] [address] MAIN OR INTRAOPERATIVE RECORD Observed: 11/02/2024 11:58 AM Status: C Source: [facility] Main OR Intraoperative Recor d IntraOp Document Type FT Summary Primary Physician: Amirah De Jesus MD Finalized Date/Time: 11/03/24 11:47:53 Pt. Name: ANTONIO GAYTAN /Sex: 1985 Female Med Rec #: [id number] Physician: Amirah De Jesus MD Financial #: [id number] Pt. Type: A Room/Bed: [place] [address] Admit/Disch: 11/02/24 09:17:14 - 11/02/24 14:05:00 Institution: Case Times FT Entry 1 Patient Times In Room 11/02/24 11:48:00 Out Room 11/02/24 12:22:00 Procedure Times Start 11/02/24 11:58:00 Stop 11/02/24 12:15:00 Anesthesia Times Start 11/02/24 11:48:00 Stop 11/02/24 12:22:00 Last Modified By: Floridalma Neil RN 11/02/24 12:22:56 General Comments: 11/03/24 Chart opened to review and send charges [facility] CSFA Case Attendance FT Entry 1 Entry 2 Entry 3 Case Attendee Denver CRUZ, Monisha De Jesus MD, Amirah Neil RN, Floridalma Campos Role Performed FURNACE UNLOADER Surgeon - Primary Traffic Analyst - Primary Time In 11/02/24 11:48:00 11/02/24 11:48:00 11/02/24 11:48:00 Time Out 11/02/24 12:22:00 11/02/24 12:22:00 11/02/24 12:22:00 Procedure NASAL ENDOSCOPY(Right), NASAL ENDOSCOPY(Right), NASAL ENDOSCOPY(Right), CYST LESION REMOVAL CYST LESION REMOVAL CYST LESION REMOVAL GENERAL ANES(Right) GENERAL ANES(Right) GENERAL ANES(Right) Comments Last Modified By: Floridalma Neil RN Neil RN, Floridalma Neil RN, Floridalma Campos 11/02/24 Marcela Campos 11/02/24 Marcela Campos 11/02/24 [...] room Last Modified By: Marcus GOLDBERG, Floridalma Neil RN, Floridalma Campos 11/02/24 Marcela Campos 11/02/24 12:22:57 12:22:57 Perioperative [...] PreOp Antibiotic No Time Out Neal GARCIA, Berny Gong Participants Monisha Goff CRNA, Ferrer RN, Floridalma Campos, Harjit HE, Ricky Arcos LPN, Azul Barrios Time Out Complete 11/02/24 11:58:00 Outcomes Met? Yes Last Modified By: Floridalma Neil RN 11/02/24 12:01:32 Post-Care Text: The patient is free from signs and symptoms of injury caused by extraneous objects Allergy Information FT Pre-Care Text: Verifies allergies Entry 1 Allergies Reviewed? Yes Allergies Reviewed Self/Patient With Outcomes Met? Yes Last Modified By: lForidalma Neil RN 11/02/24 12:01:37 Post-Care Text: The patient received appropriate medication(s) safely administered during the perioperative period Surgical Procedures FT Entry 1 Entry 2 Procedure Description Procedure NASAL ENDOSCOPY CYST LESION REMOVAL GENERAL ANES Modifiers Right Right Surgeon Description REMOVAL OF RIGHT NASAL REMOVAL OF RIGHT NASAL LESION AND CAUTERIZATION LESION AND CAUTERIZATION Primary Procedure No Yes Primary Surgeon Neal GARCIA, Amirah De Jesus MD, Amirah Ken Start 11/02/24 11:58:00 11/02/24 11:58:00 Stop 11/02/24 12:15:00 11/02/24 12:15:00 Anesthesia Type General General Surgical Service ENT ENT Wound Class 2 - Clean-Contaminated 2 - Clean-Contaminated Last Modified By: Marcus GOLDBERG, Floridalma Neil RN, Floridalma Campos 11/02/24 Marcela Campos 11/02/24 [...] LESION Outcomes Met? Yes Last Modified By: Floridalma Neil RN 11/02/24 12:01:54 Post-Care Text: The patient is free from signs and symptoms of infection Skin Assessment (Pre Procedure) FT Pre-Care Text: Implements protective measures to prevent skin/ tissue injury due to thermal or mechanical sources Evaluates for signs and symptoms of physical injury to skin and tissue Entry 1 Skin Integrity Intact, [place], Warm, & Skin Abnormality No Dry Outcomes Met? Yes Last Modified By: Floridalma Neil RN 11/02/24 12:02:17 Post-Care Text: The patient is free from signs and symptoms of injury caused by extraneous objects Patient Positioning FT Pre-Care Text: Identifies physical alterations that require additional precautions for procedure-specific positioning, verifies presence of prosthetics or corrective devices, positions the patient, evaluates the patient for signs and symptoms of injury as a result of positioning Entry 1 Procedure NASAL ENDOSCOPY(Right), Body Position Supine CYST LESION REMOVAL GENERAL ANES(Right) Feet Uncrossed? Yes Left Arm Position Tucked and Padded at Side Right Arm Position Tucked and Padded at Left Leg Position Extended Side Right Leg Position Extended Positioning Device Safety Strap, Pillow Under Head Large, Blankets Folded Press Points Checked Yes By Floridalma Neil RN, Funni CRNA, Brandy J., Timmis MD, Ricky Gong LPN, Azlu Barrios Outcomes Met? Yes Last Modified By: Floridalma Neil RN 11/02/24 12:03:43 Post-Care Text: The patient is free from signs and symptoms of injury related to positioning Patient Care Devices FT Pre-Care Text: Implements protective measures to prevent skin/ tissue injury due to thermal or mechanical sources Entry 1 Entry 2 Entry 3 Equipment Type CAUTERY UNIT HEADLIGHT MONITOR CHARGE SURGERY Equipment Number C5 OR 2 Equipment Setting 0/10 Outcomes Met? Yes Yes Yes Last Modified By: Marcus GOLDBERG, Floridalma Neil RN, Floridalma Smart RN 11/02/24 Marcela Campos 11/02/24 Marcela Campos 11/02/24 12:19:33 12:19:33 12:19:33 Entry 4 Equipment Type TANYA SMOKE EVACUATOR Equipment Number Equipment Setting Outcomes Met? Yes Last Modified By: Floridalma Neil RN 11/02/24 12:19:33 Post-Care Text: The patient is free from signs and symptoms of injury caused by extraneous objects Transport To OR FT Pre-Care Text: Transports according to individual needs. Evaluates for signs and symptoms of skin and tissue injury as a result of transfer or transport Entry 1 Via Cart By Floridalma Neil RN Safety Precautions Side Rails Up Outcomes Met? Yes Last Modified By: Floridalma Neil RN 11/02/24 12:04:29 Post-Care Text: The patient is free from signs and symptoms of injury related to transfer/transport Cautery FT Pre-Care Text: Implements protective measures to prevent injury due to electrical sources, and evaluates for signs and symptoms of electrical injury Entry 1 ESU Identification ESU Type CAUTERY UNIT ESU Settings Cut 0 Coag 10 ESU Grounding Pad Site Left Thigh Hair Removal Pad No Site Pre Pad Site Clear and Intact Post Pad Site Clear and Intact Condition Condition Grounding Pad Floridalma Neil RN Outcomes Met? Yes Last Modified By: Floridalma Neil RN 11/02/24 12:04:42 Post-Care Text: The patient if free from signs and symptoms of electrical injury Counts Verification FT Pre-Care Text: Performs required counts Entry 1 Entry 2 Procedure(s) NASAL ENDOSCOPY(Right), NASAL ENDOSCOPY(Right), CYST LESION REMOVAL CYST LESION REMOVAL GENERAL ANES(Right) GENERAL ANES(Right) Type Initial Final Items Sharps Sharps Status Correct Correct Time 11/02/24 11:54:00 11/02/24 12:15:00 By Harjit HE, Harjit Arcos CST, Marcus Arcos RN, Floridalma Smart RN Outcomes Met? Yes Yes Last Modified By: Marcus GOLDBERG, Floridalma Smart RN 11/02/24 Marcela Campos 11/02/24 12:05:16 12:19:04 Post-Care Text: The patient is free from signs and symptoms of injury caused by extraneous objects Departure From OR FT Pre-Care Text: Transports according to individual needs. Evaluates for signs and symptoms of skin and tissue injury as a result of transfer or transport. Entry 1 Via Cart Safety Precautions Side Rails Up PostOp Destination PACU Transported By Floridalma Neil RN Patient Status Stable Skin. Condition Intact, [place], Warm, & Description UNCHANGED FROM Dry PRE-OPERATIVE STATUS Airway Maintenance Oxygen in Use? Yes Airway Device Simple Mask Flow Rate 8 L/min Outcomes Met? Yes Last Modified By: Floridalma Neil RN 11/02/24 12:05:46 Post-Care Text: The patient is free from signs and symptoms of injury related to transfer/transport General Comments: VERBAL AND WRITTEN REPORT GIVEN TO TODDLER CAREGIVERYUSUF NEIL RN Dressing/Packing FT Pre-Care Text: Administers care to wound sites Entry 1 Type Dressing Site and Details right nasal area with bacitracin ointment Outcomes Met? Yes Last Modified By: Floridalma Neil RN 11/02/24 12:19:25 Post-Care Text: The patient is free from signs and symptoms of infection Medication Administration FT Pre-Care Text: Verifies allergies, administers prescribed medications and solutions, administers prescribed antibiotic therapy and immunizing agents as ordered, evaluates response to medications Administers prescribed medications and solutions Entry 1 Route of Admin Field Expiration Date Yes Verified Ordered By Amirah De Jesus MD Transcribed/To Floridalma Neil RN By Marcela Campos Administered By Amirah De Jesus MD Outcomes Met? Yes Last Modified By: Floridalma Neil RN 11/02/24 12:06:00 Post-Care Text: The patient received appropriate medication(s) safely administered during the perioperative period For [facility] please see scanned medication reconcilliation form for medications used at the field during the procedure. Cultures & Specimens FT Pre-Care Text: Manages specimen handling and disposition Manages culture specimen collection Entry 1 Cultures Ordered n/a Specimens Ordered Yes Specimen Disposition Designated OR Area Frozen Section Times Outcomes Met? Yes Last Modified By: Floridalma Neil RN 11/02/24 12:14:07 Post-Care Text: The patient is free from signs and symptoms of injury caused by extraneous objects The patient is free from signs and symptoms of infection General Comments: SPECIMEN: Right nasal lesion sen in formalin per surgeon melvina neil rn Temperature Control Entry 1 Temperature Control BLANKET MISTRAL AIR Quantity 1 Aid PLUS LOWER BODY Fluid/[place] Unit Mistral warming system Setting 43C/HIGH Body Site Lower anterior torso Last Modified By: Floridalma Neil RN 11/02/24 12:06:46 Sign Out FT Entry 1 Before Patient Leaves OR Nurse verbally Yes Nurse verbally Yes confirms with the confirms with the team the name of team that the procedure(s) instrument, sponge, recorded and needle counts are correct (or N/A) Nurse verbally Yes Nurse verbally n/a confirms with the confirms with the team how the team whether there specimen is labeled are any equipment (including patient problems to be name), if applicable addressed Sign Out Complete 11/02/24 12:15:00 Last Modified By: Floridalma Neil RN 11/02/24 12:19:11 Case Comments <None> Finalized By: Lizz Ritter CST Document Signatures Signed By: Floridalma Neil RN 11/02/24 12:28 Lizz Ritter CST 11/03/24 11:47 MAIN OR PACU I RECORD Observed: 11/02/19 11:58 AM Status: C Source: [facility] Main OR PACU I Record PACU Phase I Document Type FT Summary Primary Physician: Amirah De Jesus MD Finalized Date/Time: 11/02/24 15:09:30 Pt. Name: ANTONIO GAYTAN /Sex: 1985 Female Med Rec #: [id number] Physician: Amirah De Jesus MD Financial #: [id number] Pt. Type: A Room/Bed: [place] [address] Admit/Disch: 11/02/24 09:17:14 - 11/02/24 14:05:00 Institution: [...] Signatures Signed By: Holly Mendoza RN 11/02/24 15:09Holly Mendoza RN 11/02/24 15:09 MAIN OR PACU II RECORD Observed: 025 11:58 AM Status: F Source: [facility] Main OR PACU II Record PACU Phase II Document Type FT Summary Primary Physician: Amirah De Jesus MD Finalized Date/Time: 11/02/24 14:12:45 Pt. Name: ANTONIO GAYTAN/Sex: 1985 Female Med Rec #: [id number] Physician: Amirah De Jesus MD Financial #: [id number] Pt. Type: A Room/Bed: [facility]/ Admit/Disch: 11/02/24 09:17:14 - Institution: [...] Signed By: Sheba Pena RN 11/02/24 14:12 MAIN OR PREOPERATIVE RECORD Observed: 11:58 AM Status: F Source: [facility] Main OR Preoperative Record PreOp Document Type FT Summary Primary Physician: Amirah De Jesus MD Finalized Date/Time: 11/02/24 12:07:19 Pt. Name: LUCILAANTONIO/Sex: 1985 Female Med Rec #: [id number] Physician: Amirah De Jesus MD Financial #: [id number] Pt. Type: A Room/Bed: 01/ Admit/Disch: 11/02/24 09:17:14 - Institution: Case Times PreOp FT Pre-Care Text: Verifies consent for planned procedure, identifies individual values and wishes concerning care, includes family members in perioperative teaching Entry 1 Patient Times. In Pre Surgery 11/02/24 09:20:00 Out Pre Surgery 11/02/24 11:46:00 Outcomes Met? Yes Last Modified By: Floridalma Neil RN 11/02/24 12:07:18 Post-Care Text: The patient participates in decisions affecting his or her perioperative plan of care Finalized By: Floridalma Neil RN Document Signatures Signed By: Floridalma Neil RN 11/02/24 12:07 PROGRESS NOTE-PHYSICIAN Observed: 2024 10:24 AM Status: F Source: [facility] Progress Note-Physician Patient: ANTONIO GAYTAN Age: 39 [...] mL, IV, 150 mL/hr, Routine, Start date 11/02/24 9:30:00 EST, 6.7 hour(s), Total volume (mL): 1,000, [...] All Problems Nasal polyp / SNOMED CT 1060993409 / Confirmed, Active Problems (1) Nasal polyp Histories Past Medical History: No active or resolved past medical history items have been selected or recorded. Family History: No family history items have been selected or recorded. Procedure history: repair of tendon of ankle ([id number]). LASIK - laser assisted in situ keratomileusis ([id number]). Social History Social & Psychosocial Habits Alcohol [...] review: No qualifying data available . Plan [place] [employer] (ASA) physical status classification: Class I. Anesthetic Preoperative Plan: Anesthesia General. Result Comment: Electronical ly Signed By: Magnus GARCIA, Felton Kunz\.br\Date and Time Signed: 11/02/24 10:25 EST POTASSIUM Collected: 10:02 AM Status: F Source: [facility] TYPE CODE TESTS RESULT OUT OF RANGE REFERENCE UNITS LAB 2823-3(LOINC) POTASSIUM:SCN C:PT:SER/PLAS :QN: 3.6 Normal 3.5-5.3 mmol/L Performed By: #### [id number] # ### [facility] [address] [place] [address] B HCG QUAL Collected: 10:02 AM Status: F Source: [facility] TYPE CODE TESTS RESULT OUT OF RANGE REFERENCE UNITS LAB 2110-5([facility]) CHORIOGONADOT ROPIN.BETA SUBUNIT ( TEST):PRTHR:P T:SER/PLAS:OR D: NEGATIVE Normal Performed By: #### [id number] #### [facility] [address] [place] [address] CBC W/ AUTO DIFF Collected: 10/27/2024 9:54 AM Statu s: F Source: [facility] TYPE CODE TESTS RESULT OUT OF RANGE REFERENCE UNITS LAB 43587-2([facility]) LEUKOCYTES^^KANIKA ECTED FOR NUCLEATED ERYTHROCYTES:NCN C:PT:BLD:QN:AUTO MATED COUNT 3.5 Low 4.0-11.0 E9/L LAB 789-8([facility]) ERYTHROCYTES:NCN C:PT:BLD:QN:AUTO MATED COUNT 5.3 Normal 4.3-5.9 E12/L LAB 718-7([facility]) HEMOGLOBIN:MCNC: PT:BLD:QN: 14.8 Normal 12.0-16.0 gm/dL LAB 4544-3([facility]) HEMATOCRIT:VFR:P T:BLD:QN:AUTOMAT ED COUNT 44.4 Normal 34.0-46.0 % LAB 788-0([facility]) ERYTHROCYTE DISTRIBUTION WIDTH:RATIO:PT:R BC:QN:AUTOMATED COUNT 13.3 Normal 10.9-14.2 % LAB 785-6([facility]) ERYTHROCYTE MEAN CORPUSCULAR HEMOGLOBIN:ENTMA SS:PT:RBC:QN:AUT OMATED COUNT 28.0 Normal 27.0-34.0 pg LAB 786-4([facility]) ERYTHROCYTE MEAN CORPUSCULAR HEMOGLOBIN CONCENTRATION:MC NC:PT:RBC:QN:AUT OMATED COUNT 33.3 Normal 31.4-36.0 gm/dL LAB 787-2([facility]) ERYTHROCYTE MEAN CORPUSCULAR VOLUME:ENTVOL:PT :RBC:QN:AUTOMATE D COUNT 84.0 Normal 80.0-100.0 fL LAB 01525-7(INC) PLATELET MEAN VOLUME:ENTVOL:PT :BLD:QN:AUTOMATE D COUNT 9.8 Normal 6.4-10.8 fL LAB 777-3(LOINC) PLATELETS:NCNC:P T:BLD:QN:AUTOMAT ED COUNT 212.0 Normal 150.0-500.0 E9/L LAB 90503-9(INC) NEUTROPHILS/100 LEUKOCYTES:NFR:P T:BLD:QN: 46.3 Normal 36.0-75.0 % LAB 731-0(INC) LYMPHOCYTES:NCNC :PT:BLD:QN:AUTOM ATED COUNT 40.0 Normal 14.0-50.0 % LAB 742-7(INC) MONOCYTES:NCNC:P T:BLD:QN:AUTOMAT ED COUNT 0.5 Normal 0.2-1.0 E9/L LAB 713-8([facility]) EOSINOPHILS/100 LEUKOCYTES:NFR:P T:BLD:QN:AUTOMAT ED COUNT 0.0 Normal 0.0-8.0 % LAB 704-7(INC) BASOPHILS:NCNC:P T:BLD:QN:AUTOMAT ED COUNT 0.4 Normal 0.0-2.0 % LAB 751-8(INC) NEUTROPHILS:NCNC :PT:BLD:QN:AUTOM ATED COUNT 1.6 Low 2.0-7.5 E9/L LAB 32621-8(INC) LYMPHOCYTES:NCNC :PT:BLD:QN: 1.4 Normal 1.0-4.0 E9/L LAB 26531-1(INC) EOSINOPHILS:NCNC :PT:BLD:QN: 0.0 Normal 0.0-0.5 E9/L LAB 85136-0([facility]PITAL) BASOPHILS/LEUKOC YTES:NFR.DF:PT:B LD:QN:AUTOMATED COUNT 0.0 Normal 0.0-0.2 E9/L Performed By: #### [id number] # ### [facility] [address] [place] [address] EGFR Collected: 5 9:54 AM Status: F Source: [facility] TYPE CODE TESTS RESULT OUT OF RANGE REFERENCE UNITS LAB 15746562([facility]) eGFR 118 Normal >=59 mL/min/1 .7 3 m2 Performed By: #### [id number] #### [facility] [address] [place] [address] BMP Collected: 9:54 AM Status: F Source: [facility] TYPE CODE TESTS RESULT OUT OF RANGE REFERENCE UNITS LAB 2345-7([facility]) GLUCOSE:MCNC :PT:SER/PLAS :QN: 74 Normal 55-199 mg/dL LAB 3094-0([facility]) UREA NITROGEN:MCN C:PT:SER/AYLIN S:QN: 11 Normal 5-21 mg/dL LAB 2160-0([facility]) CREATININE:M CNC:PT:SER/P LAS:QN: 0.6 Normal 0.5-1.3 mg/dL LAB 3097-3([facility]) UREA NITROGEN/CRE ATININE:MRTO :PT:SER/PLAS :QN: 18 Normal 10-20 No Units LAB 07867-8([facility]) CALCIUM:MCNC :PT:SER/PLAS :QN: 9.6 Normal 8.9-11.1 mg/dL LAB 2951-2([facility]) SODIUM:SCNC: PT:SER/PLAS: QN: 139 Normal 135-145 mmol/L LAB 2823-3([facility]) POTASSIUM:SC NC:PT:SER/PL :QN: 3.2 Low 3.5-5.3 mmol/L LAB 5-0([facility]) CHLORIDE:SCN C:PT:SER/AYLIN S:QN: 102 Normal 101-111 mmol/L LAB 2027-9([facility]) CARBON DIOXIDE:SCNC :PT:SER/PLAS :QN: 28 Normal 21-31 mmol/L LAB 66306-4([facility]) ANION GAP:SCNC:PT: SER/PLAS:QN: 12 Normal 6-16 mEq/L Performed By: #### [id number] # ### [facility] [address] [place] [address] XR CHEST 2V* Observed: 10/25/2024 2:03 PM Status: COMPLETED Source: [facility] Main [place] [address] [place] [address] XRay Report Signed Patient: Antonio Gaytan MR#: [id number] : 1985 Acct:[id number] Age/Sex: 39 / F ADM Date: 10/25/24 Loc: [facility] Room: Type: [facility] Attending Dr: Kay Hutchinson APRN Copies to: [...] Plaza Jr., D.O.10/25/2024 2:04 PM Dictation Location: [place] [address] Transcribed By: [facility] 10/25/24 1404 Dictated By: Sylvester Plaza Jr, DO 10/25/24 1403 Signed By: <Electronically signed by Sylvester Plaza Jr, DO in OV> 10/25/[address] SINUS WO Observed: 09/25/2024 10:15 AM Status: F Source: [facility] EPIC Exam: CT SINUS WO History: Nasal mucosal [...] detailed. ELECTRONICALLY SIGNED BY: Chi De La Torre DO MR LUMBAR SPINE WO CONTRAST Observed: 12:00 AM Status: F Source: [facility] EPIC EXAM: MR LUMBAR SPINE WO CON TRAST History: lumbar pain, left leg weakness Technique: [...] SIGNED BY: Chi De La Torre DO ALLERGIES DATE TYPE / CODE NAME / CODE REACTION SEVERITY SOURCE 10/25/2024 Drug Allergy/416 222189(SNOM ED CT) lidocaine/[id number](RX NORM) nausea/vomiting Unknown [facility] 10/25/2024 Drug Allergy/416 840800(SNOM ED CT) prilocaine/T400460352(R XNORM) nausea/vomiting Unknown [facility] /77956299 6(SNOMED CT) penicillin Rash [facility] CL53433789 6(SNOMED CT) sulfamethoxazole Rash [facility] CL60431160 6(SNOMED CT) Latex [id number] [facility] ENCOUNTERS ADMIT/DISCHARGE ACCOUNT NUMBER ADMITTING ENCOUNTER CLASS LOCATION SOURCE 02/15/2025/02/16/20 [id number] Ambulatory Building:[facility] BCP OB [facility] 01/17/2025/01/18/20 25 [id number] Ambulatory Building:[facility] SWSDERM [facility] 11/28/2024/11/29/19 25 [id number] [facility] 11/10/2024/11/10/19 [id number] Ambulatory Building:[facility] NB ENT [facility] 11/02/2024/11/02/19 [id number] Timmis, Amirah H Ambulatory [facility]Building: ASRoom: JG63Nof: 01 [facility] 11/02/2024 [id number] Timmis, Amirah H Ambulatory [facility]Building: ASRoom: WP17Shl: [facility] 11/02/2024/11/02/19 25 [id number] Timmis, Amirah H Ambulatory [facility]Building: ASRoom: EF88Wcq: [facility] 10/27/2024 [id number] Timmis, Amirah H Ambulatory [facility] 10/27/2024/10/27/19 25 [id number] Timmis, Amirah H Ambulatory [facility]: [facility] 10/25/2024/10/25/19 [id number] Kay Hutchinson [facility] 10/03/2024/10/03/19 25 [id number] Ambulatory Building:SHERMAN Gaspar [facility] 09/25/2024/09/25/20 24 [id number] Ambulatory Building:[facility] SHCT [facility] 09/01/2024/09/01/20 24 [id number] [facility] 05/04/2024/05/04/20 24 [id number] Ambulatory Building:[facility] SHMR [facility] 04/19/2024/04/19/20 [id number] Ambulatory Building:[facility] FAMMED [facility] PAYERS ENCOUNTER GUARANTOR PAYER SUBSCRIBER SOURCE 02/15/2025 ANTONIO DULLDOB: [id number] [address] [address]Vop: (HP) Primary Insurance:BCBSPoli cy Number: [id number] lauren Date:2020-10-12 ENRIQUE DULLDOB: [id number] [address] [address] [facility] 01/17/2025 ANTONIO DULLDOB: [id number] [address] [address]Wwb: (HP) Primary Insurance:BCBSPoli cy Number: [id number] lauren Date:2020-10-12 ENRIQUE DULLDOB: [id number] [address] [address] [facility] 11/28/2024 ANTONIO DULLDOB: [id number] [address] [address]Abc: (HP) Primary Insurance:BCBSPoli cy Number: [id number] lauren Date:2020-10-12 ENRIQUE DULLDOB: [id number] [address] [address] [facility] 11/10/2024 ANTONIO DULLDOB: [id number] [address] [address]Mja: (HP) Primary Insurance:BCBSPoli cy Number: [id number] lauren Date:2020-10-12 ENRIQUE DULLDOB: [id number] [address] [address] [facility] 11/02/2024 ANTONIO DULLDOB: [id number] [facility] 175Tel: ~~(41 (HP) Primary Insurance:AnthemPo licy Number: [id number] lauren Date:2787-35-24GR [address] [place] [address]KQ: [facility] 11/02/2024 ANTONIO DULLDOB: [address] ST[address]: ~~(41 (HP) Primary Insurance:AnthemPo licy Number: [id number] lauren Date:0833-93-49KE [id number] [place] [address]AZ: [facility] 11/02/2024 ANTONIO DULLDOB: [address]: ~~(41 (HP) Primary Insurance:AnthemPo licy Number: [id number] lauren Date:7485-12-74YB [id number] [place] [address]DJ: [facility] 10/27/2024 ANOTNIO DULLDOB: [id number] [address] STel: (HP) Primary Insurance:AnthemPo licy Number: [id number] lauren Date:6920-40-20[address], [place] [address]FM: [facility] 10/25/2024 Antonio E Mkst[address] [address]Qoq: (HP) Primary Insurance:[place] BC/BSPolicy Number: [id number] lauren Date:2024-10-25 Enrique DullDOB: [id number] [address]Rid: (HP) [facility] 10/25/2024 Secondary Insurance:Self PayPolicy Number: Effective Date:2024-10-25 [facility] ANTONIO DULLDOB: [id number] [address] [address]Swk: (HP) Primary Insurance:BCBSPoli cy Number: [id number] lauren Date:2020-10-12 ENRIQUE DULLDOB: [id number] [address] [address] [facility] 09/25/2024 ANTONIO DULLDOB: [id number] [address] [address]Dpa: (HP) Primary Insurance:BCBSPoli cy Number: [id number] lauren Date:2020-10-12 ENRIQUE DULLDOB: [id number] [address] [address] [facility] 09/01/2024 ANTONIO DULLDOB: [id number] [address] [address]Jqp: (HP) Primary Insurance:BCBSPoli cy Number: [id number] lauren Date:2020-10-12 ENRIQUE DULLDOB: [id number] [address] [address] [facility] 05/04/2024 ANTONIO DULLDOB: [id number] [address] [address]Vxk: (HP) Primary Insurance:BCBSPoli cy Number: [id number] lauren Date:2020-10-12 ENRIQUE DULLDOB: [id number] [address] [address] [facility] 04/19/2024 ANTONIO DULLDOB: [id number] [address] [address]Uaq: (HP) Primary Insurance:BCBSPoli cy Number: [id number] lauren Date:2020-10-12 ENRIQUE STEVENOB: [id number] [address] [address] [facility]
[2025-02-20 14:08] LABS: Age Gdln ACOG Testing Note (.); HPV Aptima Negative (Negative); IGP, Aptima HPV, rfx 16/18,45 Note (.)
== END 2025-02-15 15:11 | disposition home or self-care (01) ==
LOC: LAB 15:10
PROVIDERS: PCP Family Medicine; Visit Provider Physician Assistant
DX: Z01.419 Encounter for gynecological examination (general) (routine) without abnormal findings (principal)
CPT/HCPCS: 87624; 88175

== ENCOUNTER 2025-02-21 13:57 | Outpatient (OUT) | payer BC, SELFPAY ==
--- OUTSIDE RECORDS SUMMARY | 2025-02-15 10:00 | XMS_ITS | Encounter Summary ---
Author Organization [facility] Address [address] [facility] [place] [address] Care Team Providers Care Senior Back End Java Developer Name Role Phone Ahsan Crandall Primary Care Provider [phone] Reason for Visit * Reason Comments Well Women Visit Encounter Details Date Type Department Care Team (Late st Contact Info) Description 02/15/2025 10:00 AM EDT Office Visit [facility] [address] [place] [address] Kitty Arrington PA [address] [facility] [place] [address] PCOS (polycystic ovarian syndrome) (Primary Dx); Well [...] Never 08/31/2024 How often do you attend [facility] or mandaen services? Never 08/31/2024 Do you belong to any clubs o r organizations such as pentecostalism groups, unions, fraternal or athletic groups, or [...] Recorded Patient Health Questionnaire-2 Score 0 11/28/2024 [facility] of Occupat ional Health - Occupational Stress [...] any time in the past 12 m [facility], were you homeless or living in a fdc (including now)? No 08/31/2024 Comments No Sex [...] 2008 tendon repair- ankle ligament repair @ [facility] EYE SURGERY NASAL ENDOSCOPY 11/02/[address] De Jesus OTHER SURGICAL HISTORY 2005 Laser surgery @ [facility] VAGINAL DELIVERY 2012, 2018 REVIEW OF SYSTEMS [...] EDT Office Visit [facility] [address] [place] [address] Kitty Arrington PA [address] [facility] [place] [address] 03/19/2025 9:50 AM EDT Office Visit [facility] [address] [place] [address] Jennyferfrancisco javier Pinky SATHISH AndradeN-MANAGER PLUMBING [address] [place] [address] 02/21/2026 10:00 AM EDT Office Visit [facility] [address] [place] [phone] Kitty Arrington PA [address] [facility] [place] [address] Scheduled Orders Name Type Priority Associated Diagnoses [...] cycle documented in this encounter Care Teams Senior Back End Java Developer Relationship Specialty Start Date End Date Ahsan Crandall DO [address] [place] [address] PCP - General Family Medicine 02/24/23 documented as of this encounter
--- OUTSIDE RECORDS SUMMARY | 2025-02-21 14:00 | XMS_ITS | Encounter Summary ---
Author Organization [facility] Address [address] [place] [address] Care Team Providers Care Flipping Machine Operator Name Role Phone Ahsan Crandall DO Primary Care Provider [phone] Gala Mejia REHAB TECH Unavailable Encounter Details Date Type Department Care Team (Late st Contact Info) Description 10/30/2024 Abstract [facility] [address] [facility] [address] [place] [address] Ahsan Crandall DO [address] [facility] [address] [place] [address] Social History Tobacco Use Types Packs/Day Years [...] Never 08/31/2024 How often do you attend chur ch or holiness services? Never 08/31/2024 Do you belong to any clubs o r organizations such as mosque groups, unions, fraternal or athletic groups, or [...] Date Recorded Patient Health Questionnaire-2 Score 0 04/19/2024 [facility] of Occupat ional [facility] - Occupational Stress Questionnaire Answer Date Recorded [...] time in the past 12 m [facility], were you homeless or living in a long term (including now)? No 08/31/2024 Comments No Sex and Gender Information Value Date Recorded Sex Assigned at Not on file Legal Sex Female 11:47 PM EDT Gender Identity Not on file Sexual Orientation Not on file documented as of this encounter Plan of Treatment Upcoming Encounters Date Type Department Care Team (Late st Contact Info) Description 03/15/2025 10:30 AM EDT Office Visit [facility] [address] [facility] [address] [place] [phone] Kitty Arrington PA [address] [facility] [place] [address] 03/19/2025 9:50 AM EDT Office Visit [facility] [address] [place] [address] Pinky Mesa, CARD PAINTER-LINE TENDER [address] [place], [place] [id number] 02/21/2026 10:00 AM EDT Office Visit [facility] OB [address] [facility] [place] [phone] Kitty Arrington PA [address] [facility] [place] [address] documented as of this encounter Visit Diagnoses Not on filedocumented in this encounter Care Teams Flipping Machine Operator Relationship Specialty Start Date End Date Ahsan Crandall DO [address] [place] [address] PCP - General Family Medicine 02/24/23 Gala Mejia NP [address] [place] [address] PCP - [place] [employer] 03/27/24 5 documented as of this encounter
--- OUTSIDE RECORDS SUMMARY | 2025-02-21 14:00 | XMS_ITS | Encounter Summary ---
Author Organization [facility] Address [address] [place] [address] Care Team Providers Care Vest Tailor Name Role Phone CierraAhsan brunson Primary Care Provider [phone] Gala Mejia CHEMICAL MIXER Unavailable Mihaela Morrison MD Unavailable Encounter Details Date Type Department Care Team (Late st Contact Info) Description 01/05/2024 Clinisync Result Encounter [facility] External Department Unsolicited Brigitte Roberts DO [address] [facility] [address] Michelle [place], [facility] Social History Tobacco Use Types Packs/Day Years Used Date Smoking Tobacco: Never Smokeless Tobacco: Never Alcohol Use Standard Drinks/Week Comments Never 0 (1 standard drink = 0.6 oz pur e alcohol) Comments No Sex and Gender Information Value Date Recorded Sex Assigned at Not on file Legal Sex Female 11:47 PM EDT Gender Identity Not on file Sexual Orientation Not on file documented as of this encounter Plan of Treatment Upcoming Encounters Date Type Department Care Team (Late st Contact Info) Description 03/15/2025 10:30 AM EDT Office Visit [facility] [address] [facility] [place] [address] Kitty Arrington PA [address] [facility] [address] [place], [facility] 03/19/2025 9:50 AM EDT Office Visit [facility] [address] [place] [address] Pinky Mesa, INTERLOCKING INSTALLER-SOAP TENDER [address] [place] [address] 02/21/2026 10:00 AM EDT Office Visit [facility] [address] [facility] [place] [phone] Kitty Arrington PA [address] [facility] [place] [address] documented as of this encounter Procedures Procedure Name Priority Date/Time Associated Diagnosis Comments US PELVIS W/ TRANSVAGINAL 01/05/2024 12:48 PM EDT documented in this encounter Results * US PELVIS W/ TRANSVAGINAL (01/05/2024 12:48 PM EDT) Anatomical Region Laterality Modality Other 01/05/2024 12:4 8 PM EDT Narrative 01/05/2024 12:51 PM EDT [address] [address] Ultrasound Report Signed Patient: ANTONIO GAYTAN MR#: [id number] : 1985 Acct:[id number] Age/Sex: 38 / F ADM Date: 01/05/24 Loc: [facility] Attending Dr: Brigitte Roberts D.O. Ordering Physician: Brigitte Roberts D.O. Date of Service: 01/05/24 Procedure(s): US pelvis w/ transvaginal Accession Number(s): [id number] cc: Brigitte Roberts D.O.; PRERNA URENA [address] [address] Patient Name: ANTONIO GAYTAN MRN: [id number] date: 1985 Sex: F Assigned Patient Location: [facility] Current Patient Location: [facility] Accession/Order Number: [id number] Exam Date: 01/05/2024 10:10 Report Date: 01/05/2024 12:48 At the request of: BRIGITTE ROBERTS Procedure: US pelvis w/ transvaginal EXAMINATION: US pelvis w/ transvaginal HISTORY: IRREGULAR MENSTRAL CYCLE COMPARISON: No relevant comparison available. FINDINGS: Transabdominal and transvaginal images The uterus is normal in size, contour and myometrial echotexture measuring 8.7 x 4.0 x 4.6 cm. Anteverted, anteflexed. No focal myometrial mass The endometrium measures 10 mm, normal. The right ovary is normal measuring 3.0 x 1.6 x 2.8 cm. Normal color and Doppler flow The left ovary is normal measuring 2.9 x 2.0 x 2.6 cm. Normal color and Doppler flow US/US pelvis w/ transvaginal IMPRESSION: No acute abnormality Electronically authenticated by: JOSSIE DUPREE Date: 01/05/2024 12:48 Dictated By: Jossie Dupree M.D. Signed By: 01/05/24 1251 DD/ 1248 TD/TT: Chemical Plant Operator Supervisor: Procedure Note Radiology, Radiologist, MD - 01/05/2024 [place] [address] Ultrasound Report Signed Patient: ANTONIO GAYTAN EMR#: [id number] : 1985Acct:[id number] Age/Sex: 38 / FADM Date: 01/05/24 Loc: [facility] Attending Dr: Brigitte Roberts D.O. Ordering Physician: Brigitte Roberts D.O. Date of Service: 01/05/24 Procedure(s): US pelvis w/ transvaginal Accession Number(s): [id number] cc: Brigitte Roberts D.O.; PRERNA URENA [address] [address] Patient Name: ANTONIO GAYTAN MRN: [id number] date: 1985 Sex: F Assigned Patient Location: [facility] Current Patient Location: [facility] Accession/Order Number: [id number] Exam Date: 01/05/2024 10:10 Report Date: 01/05/2024 12:48 At the request of: BRIGITTE ROBERTS Procedure: US pelvis w/ transvaginal EXAMINATION: US pelvis w/ transvaginal HISTORY: IRREGULAR MENSTRAL CYCLE COMPARISON: No relevant comparison available. FINDINGS: Transabdominal and transvaginal images The uterus is normal in size, contour and myometrial echotexture measuring8.7 x 4.0 x 4.6 cm. Anteverted, anteflexed. No focal myometrial mass The endometrium measures 10 mm, normal. The right ovary is normal measuring 3.0 x 1.6 x 2.8 cm. Normal color and Doppler flow The left ovary is normal measuring 2.9 x 2.0 x 2.6 cm. Normal color and Doppler flow US/US pelvis w/ transvaginal IMPRESSION: No acute abnormality Electronically authenticated by: JOSSIE DUPREE Date: 01/05/2024 12:48 Dictated By: Jossie Dupree M.D. Signed By:01/05/24 1251 DD/ 1248 TD/TT: Chemical Plant Operator Supervisor: us Brigitte Roberts DO [facility] Final Result documented in this encounter Visit Diagnoses Not on filedocumented in this encounter Care Teams Vest Tailor Relationship Specialty Start Date End Date Ahsan Crandall DO [address] [place] [address] PCP - General Family Medicine 02/24/23 Gala Mejia NP [address] [place] [address] PCP - [employer] 03/27/24 5 Mihaela Morrison MD [address] [place] [address] PCP - [facility] Mikaela [facility] 12/27/23 06/26/24 documented as of this encounter
--- OUTSIDE RECORDS SUMMARY | 2025-02-21 14:00 | XMS_ITS | Encounter Summary ---
Author Organization [facility] Address [address] [place] [address] Care Team Providers Care Cushion Maker Name Role Phone Ahsan Crandall DO Primary Care Provider [phone] Encounter Details Date Type Department Care Team (Late st Contact Info) Description 02/15/2025 Bamboo flowsheet [facility] OB [address] [facility] [place] [address] Kitty Arrington PA [address] [facility] [address] [place], [facility] Social History Tobacco Use Types Packs/Day Years [...] often do you attend chur ch or buddhism services? Never 08/31/2024 Do you belong to any clubs o r organizations such as anglican groups, unions, fraternal or athletic groups, or [...] Patient Health Questionnaire-2 Score 0 11/28/2024 [facility] of Occupat ional Health - Occupational Stress [...] any time in the past 12 m [facility], were you homeless or living in a fpc (including now)? No 08/31/2024 Comments No Sex and Gender Information Value Date Recorded Sex Assigned at Not on file Legal Sex Female 11:47 PM EDT Gender Identity Not on file Sexual Orientation Not on file documented as of this encounter Plan of Treatment Upcoming Encounters Date Type Department Care Team (Late st Contact Info) Description 03/15/2025 10:30 AM EDT Office Visit [facility] [address] [facility] [place] [phone] Kitty Arrington PA [address] [facility] [place] [address] 03/19/2025 9:50 AM EDT Office Visit [facility] [address] [place] [address] Pinky Mesa, HARNESS FITTER-HORN PLAYER [address] [place] [address] 02/21/2026 10:00 AM EDT Office Visit [facility] OB [address] [facility] [place] [address] Kitty Arrington PA [address] [facility] [place] [address] documented as of this encounter Visit Diagnoses Not on filedocumented in this encounter Care Teams Cushion Maker Relationship Specialty Start Date End Date Ahsan Crandall DO [address] [place] [address] PCP - General Family Medicine 02/24/23 documented as of this encounter
--- OUTSIDE RECORDS SUMMARY | 2025-02-21 14:00 | XMS_ITS | Encounter Summary ---
Author Organization [facility] Address [address] [place] [address] Care Team Providers Care Financial Engineer Name Role Phone Ahsan Crandall DO Primary Care Provider [phone] Gala Mejia MARKETING PROFESSOR Unavailable Encounter Details Date Type Department Care Team (Late st Contact Info) Description 11/06/2024 Abstract [facility] [address] [facility] [address] [place] [address] Ahsan Crandall DO [address] [facility] [address] [place] [address] Social History Tobacco Use Types Packs/Day Years [...] often do you attend chur ch or restoration services? Never 08/31/2024 Do you belong to any clubs o r organizations such as gnosticism groups, unions, fraternal or athletic groups, or [...] Recorded Patient Health Questionnaire-2 Score 0 04/19/2024 [facility] of Occupat ional [facility] - Occupational Stress Questionnaire Answer Date [...] any time in the past 12 m [facility], were you homeless or living in a chcf (including now)? No 08/31/2024 Comments No Sex [...] EDT Office Visit [facility] OB [address] [facility] [place] [address] Kitty Arrington PA [address] [facility] [place] [address] 03/19/2025 9:50 AM EDT Office Visit [facility] [address] [place] [address] Pinky Mesa, WELLNESS NURSE RN-ASSEMBLY CLEANER [address] [place], [place] [address] 02/21/2026 10:00 AM EDT Office Visit [facility] OB [address] [facility] [place] [phone] Kitty Arrington PA [address] [facility] [place] [address] documented as of this encounter Visit Diagnoses Not on filedocumented in this encounter Care Teams Financial Engineer Relationship Specialty Start Date End Date Ahsan Crandall DO [address] [place] [address] PCP - General Family Medicine 02/24/23 Gala Mejia NP [address] [place] [address] PCP - [place] [employer] 03/27/24 5 documented as of this encounter
--- OUTSIDE RECORDS SUMMARY | 2025-02-21 14:00 | XMS_ITS | Clinical Summary ---
Author Organization [facility] Healthcare Address [address] [place] [address] Care Team Providers Care Retail Cosmetics Sales Counter Manager Name Role Phone Ahsan Crandall DO Primary Care Provider [phone] Allergies Active Allergy Reactions Criticality Noted Date Comments Ibuprofen Swelling 02/15/2025 Latex 02/24/2023 Other Reaction(s): Latex Exam Gloves Penicillin G 02/24/2023 Other Reaction(s): Unknown Sulfa Antibiotics Unknown 03/08/2007 Medications albuterol (2.5 MG/3ML) 0.083% nebulizer solutionIndication s:SOB (shortness of breath) Take 3 mL (2.5 mg) by nebulization 4 (four) times a day as needed for wheezing or shortness of breath 300 mL 3 025 2025 Active meclizine (Antivert) 25 MG tablet Take 25 mg by mouth 3 (three) times a day as needed for dizziness Active Rimegepant Sulfate (Nurtec) 75 MG tablet dispersibleIndicat ions:Migraine without status migrainosus, not intractable, unspecified migraine type (CMS/HCC) Take 75 mg by mouth Daily as needed (headache) 2 tablet 025 Active spironolactone (Aldactone) 25 MG tabletIndications: Acne vulgaris Take 1 tablet, by mouth, once daily, 30 days 30 tablet 2 025 Active clindamycin (Cleocin T) 1 % lotionIndications: Acne vulgaris Apply to face qAM 60 mL 11 025 Active tretinoin (Retin-A) 0.025 % creamIndications:A cne vulgaris Apply to face, once daily at evening/night time, 30 day supply 45 g 11 025 Active iron polysaccharides (ProFe) 391.3 (180 Fe) MG capsuleIndications :PCOS (polycystic ovarian syndrome) Take 1 capsule (391.3 mg) by mouth Daily 30 capsule 6 025 2024 Active Multiple Vitamin (Multi Vitamin) tablet 1 (one) time each day at the same time. 2024 Discontinued tretinoin (Retin-A) 0.1 % cream 1 (one) time each day at the same time. 2024 Discontinued meloxicam (Mobic) 15 MG tabletIndications: Pleurisy Take 1 tablet (15 mg) by mouth Daily 30 tablet 3 025 2024 Discontinued Active Problems Problem Noted Date Diagnosed Date Migraines 08/31/2024 Anxiety 02/01/2024 Vitamin D insufficiency 02/01/2024 Irregular menstrual cycle 12/27/2023 Well woman exam with routine gynecological exam 12/27/2023 Resolved Problems Problem Noted Date Diagnosed Date Resolved Date Slow transit constipation 08/31/2024 Encounters Date Type Department Care Team Description 02/15/2025 10:00 AM EDT Office Visit [facility] OB [address] [place] [address] Kitty Arrington PA PCOS (polycystic ovarian syndrome) (Primary Dx); Well woman exam with routine gynecological exam; Menorrhagia with regular cycle 02/15/2025 Clinisync Result Encounter [facility] External Department Unsolicited Provider, Generic External Data 02/15/2025 Bamboo flowsheet [facility] OB [address] [place] [address] Kitty Arrington PA 02/15/2025 Travel 01/17/2025 9:40 AM EDT Office Visit [facility] [address] [place] [address] Pinky Mesa, OTOLARYNGOLOGY PHYSICIAN-MILLINERY BLOCKER Acne vulgaris 01/17/2025 Bamboo flowsheet [facility] [address] [place] [address] Pinky Mesa APRN-CNP 01/17/2025 Travel 11/28/2024 8:40 AM EST Office Visit [facility] [address] [place] [address] Ahsan Crandall DO Pleurisy (Primary Dx); Migraine without status migrainosus, not intractable, unspecified migraine type (CMS/HCC) 11/28/2024 Bamboo flowsheet [facility] [address] [place] [address] Ahsan Crandall DO 11/28/2024 Travel from Last 3 Months Immunizations Immunization Administration Dates Next Due DTP 06/14/1991, 8,04/12/1987,1986,1986 Hep B, adult 03/13/2014,10/11/2013,09/06/2013 HiB, unspecified 06/14/1991 Influenza, injectable, quadr ivalent, preservative free 08/25/2017 MMR 05/14/1999,12/31/1987 OPV 06/14/1991, 8,02/05/1987,1986 Td (adult), unspecified 05/14/1999 Tdap 05/13/2017 Family History Medical History Relation Name Comments Intellectual Disability Daughter 1 Cambree Dull Learning disabilities Daughter 1 Cambree Dull Alcohol abuse Father Melchor Del Vallelevon Hyperlipidemia Father Melchor Shailesh Hypertension Father Melchor Pattondonnie Migraines Father Melchor Shailesh Bipolar disorder Mother Alcohol abuse Paternal Grandfather Yunior lopez Hearing loss Paternal Grandfather Yunior Cash Asthma Paternal Grandmother Angelique Roshni h Hypertension Paternal Grandmother Angelique Roshni h Migraines Paternal Grandmother Angelique Roshni h Stroke Paternal Grandmother Angelique Roshni h CVA (cerebral infarction) No Known Problems Sister Relation Name Status Comments Daughter 1 Cambree Dull Alive Daughter 2 Alive Father Melchor Pattondonnie Alive Mother Alive Paternal Grandfather Yunior Cash Paternal Grandmother Angelique Shailesh Alive Sister Alive Social History Tobacco Use Types Packs/Day Years Used Date Smoking Tobacco: Never Smokeless Tobacco: Never Tobacco Cessation:Counseling Given: Not Answered Alcohol Use Standard Drinks/Week Comments Yes 0 [...] often do you attend chur ch or hoahaoism services? Never 08/31/2024 Do you belong to any clubs o r organizations such as mu-ism groups, unions, fraternal or athletic groups, or [...] Recorded Patient Health Questionnaire-2 Score 0 11/28/2024 [facility] [place] of Occupat ional Health - Occupational Stress [...] any time in the past 12 m [facility], were you homeless or living in a intermediate (including now)? No 08/31/2024 Comments No Sex and Gender Information Value Date Recorded Sex Assigned at Not on file Legal Sex Female 11:47 PM EDT Gender Identity Not on file Sexual Orientation Not on file Last Filed Vital Signs Vital Sign Reading Time Taken Comments Blood Pressure 120/72 02/15/2025 10:13 AM EDT Pulse 80 11/28/2024 8:44 AM EST Temperature 36.1 C (96.9 F) 11/28/2024 8:44 AM EST Respiratory Rate - - Oxygen Saturation 98% 11/28/2024 8:44 AM EST Inhaled Oxygen Concentration - - Weight 68.9 kg (151 lb 12.8 oz) 025 10:13 AM EDT Height 160 cm (5' 3 ) 11/28/2024 8:44 AM EST Body Mass Index 26.89 11/28/2024 8:44 AM EST Plan of Treatment Upcoming Encounters Date Type Department Care Team (Late st Contact Info) Description 03/15/2025 10:30 AM EDT Office Visit [facility] [address] [place] [phone] Kitty Arrington PA [address] [place] [address] 03/19/2025 9:50 AM EDT Office Visit [facility] [address] [place] [address] Moshe Pinky Lupe, OTOLARYNGOLOGY PHYSICIAN-MILLINERY BLOCKER [address] [place] [address] 02/21/2026 10:00 AM EDT Office Visit [facility] [address] [place] [phone] Kitty Arrington PA [address] [place], [place] [phone] Health Maintenance Due Date Last Done Comments Influenza Vaccine (Season Ended) 2025 08/25/20 17 Cervical Cancer Screening 12/26/2027 HPV/Cotest 12/26/2027 Pap Smear 12/26/2027 12/25/2022 Procedures Procedure Name Priority Date/Time Associated Diagnosis Comments POCT URINALYSIS DIPSTICK Routine 02/15/2025 10:16 AM EDT Well woman exam with routine gynecological exam IGP,APTIMA HPV,AGE GDLN Routine 02/15/2025 10:01 AM EDT PAP SMEAR Routine 12/25/2022 12:00 AM EDT from Last 3 Months or Most Recently Relevant to Health Maintenance Results * (ABNORMAL) POCT urinalysis dipstick manually [...] CARE TEST ENTER/EDIT OR DERABLES Final Result * IGP,APTIMA HPV,AGE GDLN (02/15/2025 10:01 AM EDT) AGE GDLN ACOG TESTING Note . [facility] Comment: TESTS RESULT FLAG UNITS REF RANGE LAB Clinician Provided Cytology Information Source.............Cervix;Endocervix No. of containers..01 ThinPrep Vial Age Algo ACOG Dotty... 30-65 01 FLAG LEGEND: L-Low Normal,H-High Normal,LL-Alert Low,HH-Alert High <-Panic Low,>-Panic High,A-Abnormal,AA-Critical Abnormal Performed at: 01 =[facility] [place] [address] [place] [address] Delilah Mendoza MD, IGP, APTIMA HPV, RFX 16/18,45 Note . [facility] Comment: TESTS RESULT FLAG UNITS REF RANGE LAB DIAGNOSIS: 02 NEGATIVE FOR INTRAEPITHELIAL LESION OR MALIGNANCY. Specimen adequacy: 02 Satisfactory for evaluation. No endocervical component is identified. Performed by: 02 Sage Abarca, Instrument Assembler ([facility]) . 02 Note: Note 02 The Pap smear is a screening test designed to aid in the detection of premalignant and malignant conditions of the uterine cervix. It is not a diagnostic procedure and should not be used as the sole means of detecting cervical cancer. Both false-positive and false-negative reports do occur. Test Methodology: Note 02 This liquid based ThinPrep(R) pap test was screened with the use of an image guided system. HPV Genotype Reflex Note 02 Criteria not met, HPV Genotype not performed. FLAG LEGEND: L-Low Normal,H-High Normal,LL-Alert Low,HH-Alert High <-Panic Low,>-Panic High,A-Abnormal,AA-Critical Abnormal Performed at: 02 [facility] [place] [address] [place] [address] Delilah Mendoza MD, HPV APTIMA Negative Negative [facility] Comment: This nucleic acid amplification test detects fourteen high- risk HPV types (16,18,31,33,35,39,45,51,52,56,58,59,66,68) without differentiation. Performed at: =[facility] [address] [id number] Administrative Specialist: Delilah Mendoza MD, Phone: [phone] Performed at: [facility] [address] [id number] Administrative Specialist: Delilah Mendoza MD, Phone: [phone] 02/15/2025 10:0 1 AM EDT 02/15/2025 3:19 PM EDT Narrative CLINISYNC - 02/20/2025 2:08 PM EDT BRUSH-SPATULA CERVIX ENDOCERVIX Kitty GAO LAB BLOOD ORDERABLES Final Resul t [facility] * Pap Smear (12/25/2022 12:00 AM EDT) Swab Cervical swab / Unknown us Mark Roberts DO LAB CYTOLOGY ORDERABLES Final Re sult EXTERNAL LAB from Last 3 Months or Most Recently Relevant to Health Maintenance Insurance [facility] Care Teams Retail Cosmetics Sales Counter Manager Relationship Specialty Start Date End Date Ahsan Crandall DO [address] [place] [address] PCP - General Family Medicine 02/24/23
--- OUTSIDE RECORDS SUMMARY | 2025-02-21 14:00 | XMS_ITS | Clinical Summary ---
Author Organization [facility] Address [facility] [place] [address] Care Team Providers Care Recreation Specialist Name Role Phone Kitty Bell (Hist) Primary Care Provider Unav ailable Allergies Active Allergy Reactions Criticality Noted Date Comments Penicillins 03/08/2007 Sulfa (Sulfonamide Antibiotics) 02/25 Active Problems Problem Noted Date Diagnosed Date PAIN HIP JOINT 01/07/2009 LIGAMENT LAXITY 01/07/2009 Social History Tobacco Use Types Packs/Day Years Used Date Smoking Tobacco: Never Assessed Comments Unknown Sex and Gender Information Value Date Recorded Sex Assigned at Not on file Legal Sex Female 8:08 AM EST Gender Identity Not on file Sexual Orientation Not on file Plan of Treatment Health Maintenance Due Date Last Done Comments Anxiety Screening 2004 Depression Screening 2004 HIV Screening 2004 Hepatitis C Screening 2004 DTaP,Tdap,Td Vaccine (1 - Tdap) 2005 Hepatitis B Vaccine (1 of 3 - 19+ 3-dose series) 09/20 Cervical Cancer Screening 2007 Covid-19 Vaccine ( - season) 2024 Influenza Vaccine (Season Ended) 2025 Insurance [employer] Care Teams Recreation Specialist Relationship Specialty Start Date End Date Alt Kitty Giraldo (Hist) PCP - General 01/20/07
--- OUTSIDE RECORDS SUMMARY | 2025-02-21 14:00 | XMS_ITS | Encounter Summary ---
Author Organization [facility] Address [address] [place] [address] Care Team Providers Care Safety Deposit Boxes Custodian Name Role Phone CierraAhsan brunson Primary Care Provider [phone] Gala Mejia BUTTON GRADER Unavailable Encounter Details Date Type Department Care Team (Late st Contact Info) Description 10/30/2024 Abstract [facility] [address] [facility] [address] [place] [address] Gala Mejia, AG [address] [place] [address] Social History Tobacco Use Types Packs/Day Years [...] often do you attend chur ch or rastafarian services? Never 08/31/2024 Do you belong to any clubs o r organizations such as samaritan groups, unions, fraternal or athletic groups, or [...] 0 04/19/2024 [facility] of Occupat ional [facility] - Occupational Stress Questionnaire Answer Date Recorded [...] any time in the past 12 m [facility], were you homeless or living in [...] EDT Office Visit [facility] [address] [place] [phone] Kitty Arrington PA [address] [facility] [address] [address] 03/19/2025 9:50 AM EDT Office Visit [facility] [address] [place] [address] Pinky Mesa, MEDICAL LAB TECHNICIAN-FLARE STITCHER [address] [place], [place] [address] 02/21/2026 10:00 AM EDT Office Visit [facility] [address] [place] [phone] Kitty Arrington PA [address] [facility] [address] [place] [address] documented as of this encounter Visit Diagnoses Not on filedocumented in this encounter Care Teams Safety Deposit Boxes Custodian Relationship Specialty Start Date End Date Ahsan Crandall DO [address] [place] [address] PCP - General Family Medicine 02/24/23 Gala Mejia NP [address] [place] [address] PCP - [place] [employer] 03/27/24 5 documented as of this encounter
--- OUTSIDE RECORDS SUMMARY | 2025-02-21 14:00 | XMS_ITS | Encounter Summary ---
Author Organization [facility] Address [address] [facility] [place] [address] Care Team Providers Care Sustain Engineer Name Role Phone Ahsan Crandall Primary Care Provider [phone] Encounter Details Date Type Department Care Team (Late st Contact Info) Description 02/15/2025 Clinisync Result Encounter [facility] External Department Unsolicited Provider, Generic External Data Social History Tobacco Use Types Packs/Day Years [...] often do you attend chur ch or caodaism services? Never 08/31/2024 Do you belong to any clubs o r organizations such as quaker groups, unions, fraternal or athletic groups, or [...] Recorded Patient Health Questionnaire-2 Score 0 11/28/2024 [facility] of Occupat ional Health - Occupational Stress [...] any time in the past 12 m [facility], were you homeless or living in a detention (including now)? No 08/31/2024 Comments No Sex and Gender Information Value Date Recorded Sex Assigned at Not on file Legal Sex Female 11:47 PM EDT Gender Identity Not on file Sexual Orientation Not on file documented as of this encounter Plan of Treatment Upcoming Encounters Date Type Department Care Team (Late st Contact Info) Description 03/15/2025 10:30 AM EDT Office Visit [facility] OB [address] [place] [phone] Kitty Arrington PA [address] [place] [address] 03/19/2025 9:50 AM EDT Office Visit [facility] [address] [place] [phone] Pinky Mesa APRN-PIPELINE DISPATCHER [address] [place], [place] [phone] 02/21/2026 10:00 AM EDT Office Visit [facility] [address] [place] [phone] Kitty Arrington PA [address] [place] [address] [place], [place] [phone] documented as of this encounter Procedures Procedure Name Priority Date/Time Associated Diagnosis Comments IGP,APTIMA HPV,AGE GDLN Routine 02/15/2025 10:01 AM EDT documented in this encounter Results * IGP,APTIMA HPV,AGE GDLN (02/15/2025 10:01 AM EDT) AGE GDLN ACOG TESTING Note . [facility] Comment: TESTS RESULT FLAG UNITS REF RANGE LAB Clinician Provided Cytology Information Source.............Cervix;Endocervix No. of containers..01 ThinPrep Vial Age Guanakito GALARZA Dotty... 30 01 FLAG LEGEND: L-Low Normal,H-High Normal,LL-Alert Low,HH-Alert High <-Panic Low,>-Panic High,A-Abnormal,AA-Critical Abnormal Performed at: 01 =[facility] [address] [place] [address] Delilah Mendoza MD, IGP, APTIMA HPV, RFX 16/18,45 Note . [facility] Comment: TESTS RESULT FLAG UNITS REF RANGE LAB DIAGNOSIS: 02 NEGATIVE FOR INTRAEPITHELIAL LESION OR MALIGNANCY. Specimen adequacy: 02 Satisfactory for evaluation. No endocervical component is identified. Performed by: 02 Sage Abarca, Forensics Analyst (ASCP) . 02 Note: Note 02 The Pap [...] <-Panic Low,>-Panic High,A-Abnormal,AA-Critical Abnormal Performed at: [address] [address] Delilah Mendoza MD, HPV APTIMA Negative Negative [facility] Comment: This nucleic acid amplification test detects fourteen high- risk HPV types (16,18,31,33,35,39,45,51,52,56,58,59,66,68) without differentiation. Performed at: =[facility] [id number] Mental Hygienist: Delilah Mendoza MD, Phone: [phone] Performed at: [facility] [address] [id number] Mental Hygienist: Delilah Mendoza MD, Phone: [phone] 02/15/2025 10:0 1 AM EDT 02/15/2025 3:19 PM EDT Narrative [facility] - 02/20/2025 2:08 PM EDT BRUSH-SPATULA CERVIX ENDOCERVIX us Kitty GAO LAB BLOOD ORDERABLES Final Resul t [facility] documented in this encounter Visit Diagnoses Not on filedocumented in this encounter Care Teams Sustain Engineer Relationship Specialty Start Date End Date Ahsan Crandall DO [address] [place] [address] PCP - General Family Medicine 02/24/23 documented as of this encounter
[2025-02-21 15:18] LABS: Basophils Absolute Auto 0.1 10^3/uL (0.0-0.1); Basophils Percent Auto 0.6 % (0.2-2.0); Eosinophils Absolute Auto 0.1 10^3/uL (0.0-0.7); Eosinophils Percent Auto 0.9 % (0.9-7.0); Hematocrit 46.3 % (36.0-48.0); Hemoglobin 15.3 g/dL (12.0-16.0); Immature Granulocytes Abs Auto 0.02 10^3/uL (0.00-0.03); Immature Granulocytes Pct Auto 0.2 % (0.0-0.5); Lymphocytes Absolute Auto 2.7 10^3/uL (1.2-3.8); Lymphocytes Percent Auto 29.4 % (20.5-60.0); Mean Corpuscular Hemoglobin 27.9 pg (26.7-34.0); Mean Corpuscular Volume 84.5 fL (81.0-99.0); Mean Platelet Volume 10.9 fL (9.5-13.5); Monocytes Absolute Auto 0.7 10^3/uL (0.3-0.8); Monocytes Percent Auto 7.4 % (1.7-12.0); Neutrophils Absolute Auto 5.7 10^3/uL (1.4-6.5); Neutrophils Percent Auto 61.5 % (43.0-75.0); Platelet Count 299 10^3/uL (150-450); Red Blood Count 5.48 10^6/uL (4.20-5.40); Red Cell Distribution Width 11.9 % (11.0-15.0); White Blood Count 9.3 10^3/uL (4.0-11.0)
[2025-02-21 15:43] LABS: Estimated Average Glucose 108 mg/dL; Glycohemoglobin A1C 5.4 % (4.5-6.2)
[2025-02-21 16:07] LABS: INR 0.99; Partial Thromboplastin Time 29.2 sec (22.3-36.2); Prothrombin Time 10.5 sec (9.0-11.6)
[2025-02-21 16:11] LABS: Free T4 1.15 ng/dL (0.76-1.46)
[2025-02-21 17:11] LABS: Thyroid Stimulating Hormone 1.265 uIU/mL (0.358-3.740)
[2025-02-21 17:20] LABS: HCG Quantitative <1 mIU/mL
== END 2025-02-21 13:58 | disposition home or self-care (01) ==
LOC: LAB 13:58
PROVIDERS: PCP Family Medicine; Visit Provider Physician Assistant
DX: E28.2 Polycystic ovarian syndrome (principal); N92.0 Excessive and frequent menstruation with regular cycle
CPT/HCPCS: 36415; 82626; 82627; 83001; 83002; 83036; 84439; 84443; 84702; 85025; 85610; 85730

== ENCOUNTER 2025-02-22 12:12 | Outpatient (OUT) | payer BC, SELFPAY ==
--- OUTSIDE RECORDS SUMMARY | 2025-02-15 10:00 | XMS_ITS | Encounter Summary ---
Author Organization [facility] Address [address] [facility] [place] [address] Care Team Providers Care Hospital Chief Financial Officer Name Role Phone Ahsan Crandall Primary Care Provider [phone] Reason for Visit * Reason Comments Well Women Visit Encounter Details Date Type Department Care Team (Late st Contact Info) Description 02/15/2025 10:00 AM EDT Office Visit [facility] BCP OB [address] [place] [address] Kitty Arrington PA [address] [place] [address] PCOS (polycystic ovarian syndrome) (Primary Dx); Well woman exam with routine gynecological exam; Menorrhagia with regular cycle Social History Tobacco Use Types Packs/Day Years Used Date Smoking Tobacco: Never Smokeless Tobacco: Never Alcohol Use Standard Drinks/Week Comments Yes 0 (1 standard drink = 0.6 oz pur e alcohol) Socially B1300 Health Literacy Answer Date Recor ded How often do you need to hav e someone help you when you read instructions, pamphlets, or other written material from your doctor or pharmacy? Never 08/31/2024 Social Connection and Isolat ion Panel [NHANES] Answer Date Recorded In a typical week, how many times do you talk on the phone with family, friends, or neighbors? More than three times a week 08/31/2024 How often do you get togethe r with friends or relatives? Never 08/31/2024 How often do you attend [facility] or sh[facility] services? Never 08/31/2024 Do you belong to any clubs o r organizations such as uatsdin groups, unions, fraternal or athletic groups, or school groups? No 08/31/2024 How often do you attend meet ings of the clubs or organizations you belong to? Never 08/31/2024 Are you , , di vorced, , never , or living with a partner? 08/31/2024 AUDIT-C Answer Date Recorded Q1: How often do you have a drink containing alc ohol? 2-4 times a month 08/31/2024 Q2: How many drinks containi ng alcohol do you have on a typical day when you are drinking? 3 or 4 08/31/2024 Q3: How often do you have si x or more drinks on one occasion? Never 08/31/2024 Overall Financial Resource Strain (CARDIA) Answe r Date Recorded How hard is it for you to pa y for the very basics like food, housing, medical care, and heating? Not hard at all 08/31/2024 PHQ-2 Answer Date Recorded Patient Health Questionnaire-2 Score 0 11/28/2024 [facility] of Occupat ional Health - Occupational Stress Questionnaire Answer Date Recorded Do you feel stress - tense, restless, nervous, or anxious, or unable to sleep at night because your mind is troubled all the time - these days? Very much 08/31/2024 Exercise Vital Sign Answer Date Recorde d On average, how many days pe r week do you engage in moderate to strenuous exercise (like a brisk walk)? 0 days 08/31/2024 On average, how many minutes do you engage in exercise at this level? 0 min 08/31/2024 Hunger Vital Sign Answer Date Recorded Within the past 12 months, y ou worried that your food would run out before you got the money to buy more. Never true 08/31/20 24 Within the past 12 months, t he food you bought just didn't last and you didn't have money to get more. Never true 08/31/2024 PRAPARE - Transportation Answer Date Re corded In the past 12 months, has l ack of transportation kept you from medical appointments or from getting medications? No 01/2024 In the past 12 months, has l ack of transportation kept you from meetings, work, or from getting things needed for daily living? No 08/31/2024 Housing Stability Vital Sign Answer Sarbjit e Recorded In the last 12 months, was t here a time when you were not able to pay the mortgage or rent on time? No 08/31/2024 In the past 12 months, how m any times have you moved where you were living? 0 08/31/2024 At any time in the past 12 m [facility], were you homeless or living in a residential (including now)? No 08/31/2024 Comments No Sex and Gender Information Value Date Recorded Sex Assigned at Not on file Legal Sex Female 11:47 PM EDT Gender Identity Not on file Sexual Orientation Not on file documented as of this encounter Last Filed Vital Signs Vital Sign Reading Time Taken Comments Blood Pressure 120/72 02/15/2025 10:13 AM EDT Pulse - - Temperature - - Respiratory Rate - - Oxygen Saturation - - Inhaled Oxygen Concentration - - Weight 68.9 kg (151 lb 12.8 oz) 025 10:13 AM EDT Height - - Body Mass Index 26.89 11/28/2024 8:44 AM EST documented in this encounter Progress Notes * SIMA Thakur - 02/15/2025 10:00 AM EDT Reason for Appointment: Patient ID: Yandy David is a 39 y.o. female who presents for Well Women Visit Patient presents today for Annual Exam. MEDICATIONS Current Outpatient Medications Medication Instructions albuterol 2.5 mg, Nebulization, 4 times daily PRN clindamycin (Cleocin T) 1 % lotion Apply to face qAM meclizine (ANTIVERT) 25 mg, 3 times daily PRN Nurtec 75 mg, Oral, Daily PRN spironolactone (Aldactone) 25 MG tablet Take 1 tablet, by mouth, once daily, 30 days tretinoin (Retin-A) 0.025 % cream Apply to face, once daily at evening/night time, 30 day supply ALLERGIES Allergies Allergen Reactions Ibuprofen Swelling Latex Other Reaction(s): Latex Exam Gloves Penicillin G Other Reaction(s): Unknown Sulfa Antibiotics Unknown PROBLEMS Active Ambulatory Problems Diagnosis Date Noted Irregular menstrual cycle 12/27/2023 Well woman exam with routine gynecological exam 12/27/2023 Anxiety 02/01/2024 Vitamin D insufficiency 02/01/2024 Migraines (CMS/HCC) 08/31/2024 Resolved Ambulatory Problems Diagnosis Date Noted Slow transit constipation 08/31/2024 Past Medical History: Diagnosis Date Decreased sex drive Dizziness 10/19 Fatigue Headache Hormone disorder Iron deficiency anemia Migraine Non-smoker Vitamin D deficiency HISTORY PAST MEDICAL HISTORY SOCIAL HISTORY Past Medical History: Diagnosis Date Anxiety [address] Dizziness 10/19 Fatigue Headache Hormone disorder Iron deficiency anemia Migraine Non-smoker Vitamin D deficiency Social History Tobacco Use Smoking status: Never Smokeless tobacco: Never Substance Use Topics Alcohol use: Yes Comment: Socially Drug use: Never FAMILY HISTORY Family History Problem Relation Name Age of Onset Bipolar disorder Mother Hypertension Father Melchor Cash Hyperlipidemia Father Melchor Cash Alcohol abuse Father Melchor Cash Migraines Father Melchor Cash No Known Problems Sister Hypertension Paternal Grandmother Angelique Cash Stroke Paternal Grandmother Angelique Crosslevibhargav CVA (cerebral infarction) Asthma Paternal Grandmother Angelique Cash Migraines Paternal Grandmother Angelique Cash Alcohol abuse Paternal Grandfather Yunior Del Vallemariama Hearing loss Paternal Grandfather Yunior Del Valleclaritzarocío Learning disabilities Daughter Cambree Dull Intellectual Disability Daughter Cambree Dull SURGICAL HISTORY Past Surgical History: Procedure Laterality Date ANKLE SURGERY 2008 tendon repair- ankle ligament repair @ [facility] [place] EYE SURGERY NASAL ENDOSCOPY 11/02/[address] De Jesus OTHER SURGICAL HISTORY 2005 Laser surgery @ [facility] VAGINAL DELIVERY 2012, 2018 REVIEW OF SYSTEMS Review of Systems: Review of Systems Constitutional: Negative. HENT: Negative. Eyes: Negative. Respiratory: Negative. Cardiovascular: Negative. Gastrointestinal: Negative. Genitourinary: Negative. Musculoskeletal: Negative. Skin: Negative. Neurological: Negative. All other systems reviewed and are negative. Hematological: Negative. Endocrine: Negative. Allergic/Immunologic: Negative. OBJECTIVE Objective: Physical Exam Constitutional: Appearance: Normal appearance. She is normal weight. HENT: Head: Normocephalic. Cardiovascular: Rate and Rhythm: Normal rate. Pulses: Normal pulses. Pulmonary: Effort: Pulmonary effort is normal. Breath sounds: Normal breath sounds. Abdominal: Palpations: Abdomen is soft. Musculoskeletal: General: Normal range of motion. Neurological: General: No focal deficit present. Mental Status: She is alert and oriented to person, place, and time. Psychiatric: Mood and Affect: Mood normal. Behavior: Behavior normal. Thought Content: Thought content normal. Judgment: Judgment normal. Vitals and nursing note reviewed. Vitals: Estimated body mass index is 26.89 kg/m?? as calculated from the following: Height as of 11/28/24: 5' 3 . Weight as of this encounter: 151 lb 12.8 oz. BP: 120/72 Patient's last menstrual period was 01/29/2025. ASSESSMENT & PLAN ICD-10-CM 1. PCOS (polycystic ovarian syndrome) E28.2 Follicle stimulating hormone Luteinizing hormone DHEA-sulfate DHEA US Pelvis w/ TV DHEA 2. Well woman exam with routine gynecological exam Z01.419 Pap Smear HPV DNA probe, amplified POCT urinalysis dipstick manually resulted 3. Menorrhagia with regular cycle N92.0 CBC and differential TSH hCG, quantitative, Protime-INR T4, free APTT Hemoglobin A1c APTT Annual Exam: Patient presents today for an annual exam. Patient states she is doing well and has no complaints. Pap was obtained without difficulty. Orders Placed This Encounter Procedures HPV DNA probe, amplified US Pelvis w/ TV Follicle stimulating hormone Luteinizing hormone DHEA-sulfate DHEA CBC and differential TSH hCG, quantitative, Protime-INR T4, free APTT Hemoglobin A1c POCT urinalysis dipstick manually resulted Patient states she has been having irregular, heavy cycles and fatigue with cycles. We discussed options including getting routine labs, ultrasound and option of tubal with ablation to help with her heavy painful periods and fatigue. Pt given info in surgical procedures and will discuss with . Patient will follow up in one month to review labs, US and discuss surgical option Follow Up: Patient is to return in one year for annual unless needed otherwise. Documented by SIMA Thakur on behalf of: SIMA Thakur documented in this encounter Plan of Treatment Upcoming Encounters Date Type Department Care Team (Late st Contact Info) Description 03/15/2025 10:30 AM EDT Office Visit [facility] [address] [place] [address] Kitty Arrington PA [address] [place] [address] 03/19/2025 9:50 AM EDT Office Visit [facility] DERM [address] [place] [address] Jennyferfrancisco javier Pinky SATHISH AndradeN-INSTRUMENTATION CHEMIST [address] [place] [address] 02/21/2026 10:00 AM EDT Office Visit [facility] OB [address] [place] [phone] Kitty Arrington PA [address] [place] [address] Scheduled Orders Name Type Priority Associated Diagnoses Orde r Schedule Pap Smear Pathology and Cytology Routine Well woman exam with routine gynecological exam Ordered: 02/15/2025 HPV DNA probe, amplified Microbiology Routine Well woman exam with routine gynecological exam Ordered: 02/15/2025 Follicle stimulating hormone Lab Routine PCOS (polycystic ovarian syndrome) Ordered: 02/15/2025 Luteinizing hormone Lab Routine PCOS (polycystic ovarian syndrome) Ordered: 02/15/2025 DHEA-sulfate Lab Routine PCOS (polycystic ovarian syndrome) Ordered: 02/15/2025 DHEA Lab Routine PCOS (polycystic ovarian syndrome) Expected: 02/15/2025 (Approximate), Expires: 02/15/2026 US Pelvis w/ TV Imaging Routine PCOS (polycystic ovarian syndrome) Expected: 02/15/2025, Expires: 02/15/2026 CBC and differential Lab Routine Menorrhagia with regular cycle Ordered: 02/15/2025 TSH Lab Routine Menorrhagia with regular cycle Ordered: 02/15/2025 hCG, quantitative, Lab Routine Menorrhagia with regular cycle Ordered: 02/15/2025 Protime-INR Lab Routine Menorrhagia with regular cycle Ordered: 02/15/2025 T4, free Lab Routine Menorrhagia with regular cycle Ordered: 02/15/2025 APTT Lab Routine Menorrhagia with regular cycle Expected: 02/15/2025 (Approximate), Expires: 02/15/2026 Hemoglobin A1c Lab Routine Menorrhagia with regular cycle Ordered: 02/15/2025 documented as of this encounter Procedures Procedure Name Priority Date/Time Associated Diagnosis Comments POCT URINALYSIS DIPSTICK Routine 02/15/2025 10:16 AM EDT Well woman exam with routine gynecological exam documented in this encounter Results * (ABNORMAL) POCT urinalysis dipstick manually resulted (02/15/2025 10:16 AM EDT) Color, UA Straw Clarity, UA Clear Glucose, UA Negative Negative - 2000(110) ++++ mg/dL Bilirubin, UA Negative Negative - 4(70) +++ mg/dL Ketones, UA Negative Negative - 160(16) ++++ mg/dL Spec Grav, UA 1.025 1 - 1.03 Blood, UA Positive Negative - 50 Manjit/mcL Comment:trace-intact pH, UA 6.0 5 - 9 Protein, UA Negative Negative - 2000(20) ++++ mg/dL Urobilinogen, UA 0.2 0.2 - 12 mg/dL Leukocytes, UA Trace Negative - 500+++ Gina/mcL Nitrite, UA Negative Negative - Positive Urine 02/15/2025 10:1 6 AM EDT Kitty GAO POINT OF CARE TEST ENTER/EDIT OR DERABLES Final Result documented in this encounter Visit Diagnoses Diagnosis PCOS (polycystic ovarian syndrome)- Primary Polycystic ovaries Well woman exam with routine gynecological exam Routine gynecological examination Menorrhagia with regular cycle documented in this encounter Care Teams Hospital Chief Financial Officer Relationship Specialty Start Date End Date Ahsan Crandall DO [address] [place] [address] PCP - General Family Medicine 02/24/23 documented as of this encounter
--- OUTSIDE RECORDS SUMMARY | 2025-02-22 12:13 | XMS_ITS | Encounter Summary ---
Author Organization [facility] Address [address] [facility] [place] [address] Care Team Providers Care Automation Machine Operator Name Role Phone Ahsan Crandall Primary Care Provider [phone] Encounter Details Date Type Department Care Team (Late st Contact Info) Description 02/21/2025 Clinisync Result Encounter [facility] External Department Unsolicited [...] often do you attend chur ch or roman catholic services? Never 08/31/2024 Do you belong to any clubs o r organizations such as religious groups, unions, fraternal or athletic groups, or [...] Recorded Patient Health Questionnaire-2 Score 0 11/28/2024 [facility] of Occupat ional Health - Occupational Stress [...] any time in the past 12 m [facility], were you homeless or living in a retirement (including now)? No 08/31/2024 Comments No Sex [...] EDT Office Visit [facility] [address] [place] [address] Kitty Arrington PA [address] [facility] [address] [place] [address] 03/19/2025 9:50 AM EDT Office Visit [facility] [address] [place] [address] Pinky Mesa APRN-TOOL SMITH [address] [place] [address] 02/21/2026 10:00 AM EDT Office Visit [facility] [address] [place] [address] Kitty Arrington PA [address] [facility] [address] [place] [address] documented as of this encounter Procedures Procedure Name Priority Date/Time Associated Diagnosis Comments TBH PREG QUANT HCG Routine 02/21/2025 2: 58 PM EDT [facility] PROTHROMBIN TIME INR W/O COUM Routine 02/21/2025 2:58 PM EDT MLR HEMOGLOBIN A1C Routine 02/21/2025 2: 58 PM EDT [facility] APTT Routine 02/21/2025 2:58 PM EDT ALL THYROXINE (T4) FREE Routine 02/21/2025 2:58 PM EDT ALL THYROID STIM HORMONE Routine 02/21/2025 2:58 PM EDT ALL CBC WITH AUTO DIFF Routine 02/21/2025 2:58 PM EDT documented in this encounter Results * TBH PREG QUANT HCG (02/21/2025 2:58 PM EDT) HCG QUANTITATIVE <1 mIU/mL TBH Comment: 5-50 0.2-1 WEEK 50-500 1-2 WEEKS 100-5,000 2-3 WEEKS 500-10,000 3-4 WEEKS 1,000-50,000 4-5 WEEKS 10,000-100,000 5-6 WEEKS 15,000-200,000 6-8 WEEKS 10,000-100,000 2-3 MONTHS 02/21/2025 2:58 PM EDT 02/21/2025 3:05 PM EDT Narrative CLINIS[facility] - 02/21/2025 5:20 PM EDT Generic External Data Provider CLIN[facility] F inal Result Performing Organization Address [facility]/ZIP Co de Phone Number [facility] * ALL THYROID STIM HORMONE (02/21/2025 2:58 PM EDT) THYROID STIMULATING HORMONE 1.265 0.358 - 3.740 uIU/mL TB 02/21/2025 2:58 PM EDT 02/21/2025 3:05 PM EDT Narrative CLINISYNC - 02/21/2025 5:20 PM EDT Generic External Data Provider [facility] F inal Result [facility] * [facility] APTT (02/21/2025 2:58 PM EDT) PARTIAL THROMBOPLASTIN TIME 29.2 22.3 - 36.2 sec TBH 02/21/2025 2:58 PM EDT 02/21/2025 3:05 PM EDT Narrative CLINISYNC - 02/21/2025 4:21 PM EDT Generic External Data Provider CLINISYNC F inal Result Performing Organization Address [facility] de Phone Number [facility] * [facility] PROTHROMBIN TIME INR W/O COUM (02/21/2025 2:58 PM EDT) PROTHROMBIN TIME 10.5 9.0 - 11.6 sec TB TB INR 0.99 TBH Comment: DESIRED INR: 2.0-3.0 CONDITIONS NOT LISTED BELOW 2.5-3.5 FOR PROSTHETIC HEART VALVE REPLACEMENT 2.5-3.5 RECURRENT THROMBOSIS 02/21/2025 2:58 PM EDT 02/21/2025 3:05 PM EDT Narrative CLINISYNC - 02/21/2025 4:21 PM EDT Generic External Data Provider CLINISYNC F inal Result Performing Organization Address [facility] de Phone Number [facility] * ALL THYROXINE (T4) FREE (02/21/2025 2:58 PM EDT) FREE T4 1.15 0.76 - 1.46 ng/dL TB 02/21/2025 2:58 PM EDT 02/21/2025 3:05 PM EDT Narrative CLINISYNC - 02/21/2025 4:12 PM EDT Kitty CORTEZ Final Result Performing Organization Address [facility] de Phone Number [facility] * MLR HEMOGLOBIN A1C (02/21/2025 2:58 PM EDT) GLYCOHEMOGLOBIN A1C 5.4 4.5 - 6.2 % TB Comment: ADA RECOMMENDED LIMIT 4.0 - 6.0 ADA THERAPEUTIC TARGET < 7.0 ACTION SUGGESTED > 7.0 ESTIMATED AVERAGE GLUCOSE 108 mg/dL TB 02/21/2025 2:58 PM EDT 02/21/2025 3:05 PM EDT Narrative CLINISYNC - 02/21/2025 3:44 PM EDT us Kitty GAO [facility] Final Result [facility] * (ABNORMAL) ALL CBC WITH AUTO DIFF (02/21/2025 2:58 PM EDT) TB WBC 9.3 4.0 - 11.0 10 3/uL TBH TBH RBC 5.48(H) 4.20 - 5.40 10 6/uL TBH TBH HGB 15.3 12.0 - 16.0 g/dL TBH TBH HCT 46.3 36.0 - 48.0 % TBH TBH MCV 84.5 81.0 - 99.0 fL TBH TBH MCH 27.9 26.7 - 34.0 pg TBH TBH MCHC 33.0 29.9 - 35.2 g/dL TBH TBH RDW 11.9 11.0 - 15.0 % TBH TBH PLT 299 150 - 450 10 3/uL TBH TBH MPV 10.9 9.5 - 13.5 fL TBH NEUTROPHILS PERCENT AUTO 61.5 43.0 - 75.0 % TBH LYMPHOCYTES PERCENT AUTO 29.4 20.5 - 60.0 % TBH MONOCYTES PERCENT AUTO 7.4 1.7 - 12.0 % TBH TBH EO % 0.9 0.9 - 7.0 % TBH BASOPHILS PERCENT AUTO 0.6 0.2 - 2.0 % TBH IMMATURE GRANULOCYTES PCT AUTO 0.2 0.0 - 0.5 % TBH NEUTROPHILS ABSOLUTE AUTO 5.7 1.4 - 6.5 10 3/uL TBH LYMPHOCYTES ABSOLUTE AUTO 2.7 1.2 - 3.8 10 3/uL TBH MONOCYTES ABSOLUTE AUTO 0.7 0.3 - 0.8 10 3/uL TBH TBH EO # 0.1 0.0 - 0.7 10 3/uL TBH BASOPHILS ABSOLUTE AUTO 0.1 0.0 - 0.1 10 3/uL TBH IMMATURE GRANULOCYTES ABS AUTO 0.02 0.00 - 0.03 10 3/uL TBH 02/21/2025 2:58 PM EDT 02/21/2025 3:05 PM EDT Narrative CLINISYNC - 02/21/2025 3:37 PM EDT Kitty GAO CLINGOPI Final Result [facility] documented in this encounter Visit Diagnoses Not on filedocumented in this encounter Care Teams Automation Machine Operator Relationship Specialty Start Date End Date Ahsan Crandall DO [address] [facility] [address] [place] [address] PCP - General Family Medicine 02/24/23 documented as of this encounter
--- OUTSIDE RECORDS SUMMARY | 2025-02-22 12:13 | XMS_ITS | Encounter Summary ---
Author Organization [facility] Address [address] [place] [address] Care Team Providers Care Chimney Repairer Name Role Phone Ahsan Crandall DO Primary Care Provider [phone] Gala Mejia CATHODE RAY TUBE SALVAGE PROCESSOR Unavailable Encounter Details Date Type Department Care Team (Late st Contact Info) Description 10/30/2024 Abstract [facility] FM [address] [facility] [address] [place] [address] Ahsan Crandall DO [address] [facility] [address] [place] [address] Social History Tobacco Use Types Packs/Day Years [...] often do you attend chur ch or judaism services? Never 08/31/2024 Do you belong to any clubs o r organizations such as sikh groups, unions, fraternal or athletic groups, or [...] Recorded Patient Health Questionnaire-2 Score 0 04/19/2024 [facility] of Occupat ional [facility] - Occupational Stress Questionnaire Answer Date Recorded [...] time in the past 12 m [facility], were you homeless or living [...] EDT Office Visit [facility] BCP OB [address] [facility] [place] [phone] Kitty Arrington PA [address] [facility] [place] [address] 03/19/2025 9:50 AM EDT Office Visit [facility] DERM [address] [place] [address] Pinky Mesa, MUMPS DEVELOPER-SENIOR HUMAN RESOURCES REPRESENTATIVE [address] [place], [place] [address] 02/21/2026 10:00 AM EDT Office Visit [facility] BCP OB [address] [facility] [place] [phone] Kitty Arrington PA [address] [facility] [place] [address] documented as of this encounter Visit Diagnoses Not on filedocumented in this encounter Care Teams Chimney Repairer Relationship Specialty Start Date End Date Ahsan Crandall DO [address] [place] [address] PCP - General Family Medicine 02/24/23 Gala Mejia NP [address] [place] [address] PCP - [place] [employer] 03/27/24 5 documented as of this encounter
--- OUTSIDE RECORDS SUMMARY | 2025-02-22 12:13 | XMS_ITS | Clinical Summary ---
Author Organization [facility] Healthcare Address [address] [place] [address] Care Team Providers Care Cap Jewel Plate Assembler Name Role Phone Ahsan Crandall DO Primary Care Provider [phone] Allergies Active Allergy Reactions Criticality Noted Date [...] Encounters Date Type Department Care Team Description 02/21/2025 Clinisync Result Encounter NOMS External Department Unsolicited Provider, Generic External Data 02/15/2025 10:00 AM EDT Office Visit [facility] OB [address] [facility] [place] [address] Kitty Arrington PA PCOS (polycystic ovarian syndrome) (Primary Dx); Well woman exam with routine gynecological exam; Menorrhagia with regular cycle 02/15/2025 Clinisync Result Encounter NOMS External Department Unsolicited Provider, Generic External Data 02/15/2025 Bamboo flowsheet [facility] OB [address] [facility] [place] [address] Kitty Arrintgon PA 02/15/2025 Travel 01/17/2025 9:40 AM EDT Office Visit [facility] DERM [address] [place] [address] Pinky Mesa, INSPECTOR ADVANCED COMPOSITE-SCHEDULE SUPERVISOR Acne vulgaris 01/17/2025 Bamboo flowsheet [facility] DERM [address] [place] [address] Pinky Mesa APRN-CNP 01/17/2025 Travel 11/28/2024 8:40 AM EST Office Visit [facility] FM [address] [place] [address] Ahsan Crandall DO Pleurisy (Primary Dx); Migraine without status migrainosus, not intractable, unspecified migraine type (CMS/HCC) 11/28/2024 Bamboo flowsheet [facility] FM [address] [place] [address] Ahsan Crandall DO 11/28/2024 Travel from Last [...] 1 Cambree Dull Alcohol abuse Father Melchor Pattondonnie Hyperlipidemia Father Melchor Pattondonnie Hypertension Father Melchor Andradebhargav Migraines Father Melchor Del Vallelevon Bipolar disorder Mother Alcohol abuse Paternal Grandfather Yunior lopez Hearing loss Paternal Grandfather Yunior Cash Asthma Paternal Grandmother Angelique Roshni lopez Hypertension Paternal Grandmother Angelique Roshni h Migraines Paternal Grandmother Angelique Americanbrocío h Stroke Paternal Grandmother Angelique Roshni h CVA (cerebral infarction) No Known Problems Sister Relation Name Status Comments Daughter 1 Cambree Dull Alive Daughter 2 Alive Father Melchor Pattondonnie Alive Mother Alive Paternal Grandfather Yunior Cash Paternal Grandmother Angelique Cash Alive Sister Alive Social History Tobacco Use [...] 08/31/2024 How often do you attend chur or jain services? Never 08/31/2024 Do you belong to any clubs o r organizations such as roman catholic groups, unions, fraternal or athletic groups, or [...] Recorded Patient Health Questionnaire-2 Score 0 11/28/2024 [facility] of Occupat ional Health - Occupational Stress [...] any time in the past 12 m [facility], were you homeless or living in a prison (including now)? No 08/31/2024 Comments No Sex [...] 03/15/2025 10:30 AM EDT Office Visit [facility] OB [address] [facility] [place] [address] Kitty Arrington PA [address] [facility] [place] [address] 03/19/2025 9:50 AM EDT Office Visit [facility] DERM [address] [place] [address] Pinky Mesa APRN-SCHEDULE SUPERVISOR [address] [place] [address] 02/21/2026 10:00 AM EDT Office Visit [facility] OB [address] [facility] [place] [address] Kitty Arrington PA [address] [place] [address] [place] [address] Health Maintenance Due Date Last Done Comments Influenza Vaccine (Season Ended) 2025 08/25/20 17 Cervical Cancer Screening 12/26/2027 HPV/Cotest 12/26/2027 Pap Smear 12/26/2027 12/25/2022 Procedures Procedure Name Priority Date/Time Associated Diagnosis Comments TBH PREG QUANT HCG Routine 02/21/2025 2: 58 PM EDT ALL THYROID STIM HORMONE Routine 02/21/2025 2:58 PM EDT CCF APTT Routine 02/21/2025 2:58 PM EDT SRMCOH PROTHROMBIN TIME INR W/O COUM Routine 02/21/2025 2:58 PM EDT ALL THYROXINE (T4) FREE Routine 02/21/2025 2:58 PM EDT MLR HEMOGLOBIN A1C Routine 02/21/2025 2: 58 PM EDT ALL CBC WITH AUTO DIFF Routine 02/21/2025 2:58 PM EDT POCT URINALYSIS DIPSTICK Routine 02/15/2025 10:16 AM EDT Well woman exam with routine gynecological exam IGP,APTIMA HPV,AGE GDLN Routine 02/15/2025 10:01 AM EDT PAP SMEAR Routine 12/25/2022 12:00 AM EDT from Last 3 Months or Most Recently Relevant to Health Maintenance Results * TBH PREG QUANT HCG (02/21/2025 2:58 PM EDT) HCG QUANTITATIVE <1 mIU/mL TBH Comment: 5-50 0.2-1 WEEK 50-500 1-2 WEEKS 100-5,000 2-3 WEEKS 500-10,000 3-4 WEEKS 1,000-50,000 4-5 WEEKS 10,000-100,000 5-6 WEEKS 15,000-200,000 6-8 WEEKS 10,000-100,000 2-3 MONTHS 02/21/2025 2:58 PM EDT 02/21/2025 3:05 PM EDT Narrative DIEGO - 02/21/2025 5:20 PM EDT Generic External Data Provider DIEGO F inal Result [facility] * SRM[facility] PROTHROMBIN TIME INR W/O COUM (02/21/2025 2:58 PM EDT) PROTHROMBIN TIME 10.5 9.0 - 11.6 sec TBH TBH INR 0.99 TBH Comment: DESIRED INR: 2.0-3.0 CONDITIONS NOT LISTED BELOW 2.5-3.5 FOR PROSTHETIC HEART VALVE REPLACEMENT 2.5-3.5 RECURRENT THROMBOSIS 02/21/2025 2:58 PM EDT 02/21/2025 3:05 PM EDT Narrative CLINISYNC - 02/21/2025 4:21 PM EDT Generic External Data Provider CLINISYNC F inal Result Performing Organization Address [facility] Phone Number CLINGOPI [facility] * MLR HEMOGLOBIN A1C (02/21/2025 2:58 PM EDT) GLYCOHEMOGLOBIN A1C 5.4 4.5 - 6.2 % [facility] Comment: ADA RECOMMENDED LIMIT 4.0 - 6.0 ADA THERAPEUTIC TARGET < 7.0 ACTION SUGGESTED > 7.0 ESTIMATED AVERAGE GLUCOSE 108 mg/dL TB 02/21/2025 2:58 PM EDT 02/21/2025 3:05 PM EDT Narrative CLINISYNC - 02/21/2025 3:44 PM EDT Kitty CORTEZ Final Result Performing Organization Address [facility] Phone Number CLINSARAHNC [facility] * CCF APTT (02/21/2025 2:58 PM EDT) PARTIAL THROMBOPLASTIN TIME 29.2 22.3 - 36.2 sec TB 02/21/2025 2:58 PM EDT 02/21/2025 3:05 PM EDT Narrative CLINISYNC - 02/21/2025 4:21 PM EDT Generic External Data Provider CLINISYNC F inal Result Performing Organization Address [facility] Phone Number CLINISYNC [facility] * ALL THYROXINE (T4) FREE (02/21/2025 2:58 PM EDT) FREE T4 1.15 0.76 - 1.46 ng/dL TB 02/21/2025 2:58 PM EDT 02/21/2025 3:05 PM EDT Narrative CLINISYNC - 02/21/2025 4:12 PM EDT Kitty Murphy PA CLINISYNC Final Result CLINISYUT TB * ALL THYROID STIM HORMONE (02/21/2025 2:58 PM EDT) THYROID STIMULATING HORMONE 1.265 0.358 - 3.740 uIU/mL TBH 02/21/2025 2:58 PM EDT 02/21/2025 3:05 PM EDT Narrative CLINISYNC - 02/21/2025 5:20 PM EDT Generic External Data Provider CLINISYNC F inal Result CLINISYUT TB * (ABNORMAL) ALL CBC WITH AUTO DIFF (02/21/2025 2:58 PM EDT) Pathologist [facility] TB WBC 9.3 4.0 - 11.0 10 3/uL TBH TB RBC 5.48(H) 4.20 - 5.40 10 6/uL TBH TBH HGB 15.3 12.0 - 16.0 g/dL TB TB HCT 46.3 36.0 - 48.0 % TBH TBH MCV 84.5 81.0 - 99.0 fL TBH TBH MCH 27.9 26.7 - 34.0 pg TBH TBH MCHC 33.0 29.9 - 35.2 g/dL TB TB RDW 11.9 11.0 - 15.0 % TBH [...] - 02/21/2025 3:37 PM EDT Kitty GAO CLINISYNC Final Result [facility] * (ABNORMAL) POCT urinalysis dipstick manually resulted [...] EDT) AGE GDLN ACOG TESTING Note . TB Comment: TESTS RESULT FLAG UNITS REF RANGE LAB Clinician Provided Cytology Information Source.............Cervix;Endocervix No. of containers..01 ThinPrep Vial Age Guanakito Storm... 3065 FLAG LEGEND: L-Low Normal,H-High Normal,LL-Alert Low,HH-Alert High <-Panic Low,>-Panic High,A-Abnormal,AA-Critical Abnormal Performed at: 01 =[facility] [address] [place] [address] Delilah Mendoza MD, IGP, APTIMA HPV, RFX 16/18,45 Note . [facility] Comment: TESTS RESULT FLAG UNITS REF RANGE LAB DIAGNOSIS: 02 NEGATIVE FOR INTRAEPITHELIAL LESION OR MALIGNANCY. Specimen adequacy: 02 Satisfactory for evaluation. No endocervical component is identified. Performed by: 02 Sage Abarca, Sewer Tapper ([facility]) . 02 Note: Note 02 The Pap [...] <-Panic Low,>-Panic High,A-Abnormal,AA-Critical Abnormal Performed at: [address] [address] Delilah Mendoza MD, HPV APTIMA Negative Negative [facility] Comment: This nucleic acid amplification test detects fourteen high- risk HPV types (16,18,31,33,35,39,45,51,52,56,58,59,66,68) without differentiation. Performed at: =[address] [id number] Build Technician: Delilah Mendoza MD, Phone: [phone] Performed at: [address] [id number] Build Technician: Delilah Mendoza MD, Phone: [phone] 02/15/2025 10:0 1 AM EDT 02/15/2025 3:19 PM EDT Narrative CLINISYNC - 02/20/2025 2:08 PM EDT BRUSH-SPATULA CERVIX ENDOCERVIX Kitty GAO LAB BLOOD ORDERABLES Final Resul t CLINISYNC TBH * Pap Smear (12/25/2022 12:00 AM EDT) Swab Cervical swab / Unknown us Mark Roberts DO LAB CYTOLOGY ORDERABLES Final Re sult EXTERNAL LAB from Last 3 Months or Most Recently Relevant to Health Maintenance Insurance [address] [place] [address] BC[place] [address] [place] [address] Care Teams Cap Jewel Plate Assembler Relationship Specialty Start Date End Date Ahsan Crandall DO [address] [place] [address] PCP - General Family Medicine 02/24/23
--- OUTSIDE RECORDS SUMMARY | 2025-02-22 12:13 | XMS_ITS | Encounter Summary ---
Author Organization [facility] Address [address] [place] [address] Care Team Providers Care Pilot Can Router Name Role Phone CierraAhsan brunson Primary Care Provider [phone] Gala Mejia MUD WORKER Unavailable Encounter Details Date Type Department Care Team (Late st Contact Info) Description 10/30/2024 Abstract [facility] FM [address] [facility] [address] [place] [address] Gala Mejia, AG [address] [facility] [address] [place] [address] Social History Tobacco Use Types Packs/Day Years [...] often do you attend chur ch or sabianist services? Never 08/31/2024 Do you belong to any clubs o r organizations such as yazdanism groups, unions, fraternal or athletic groups, or [...] Recorded Patient Health Questionnaire-2 Score 0 04/19/2024 [facility] of Occupat ional [facility] - Occupational Stress Questionnaire Answer Date [...] time in the past 12 m [facility], were you homeless or living in a alf (including now)? No 08/31/2024 Comments No Sex [...] EDT Office Visit [facility] BCP OB [address] [facility] [place] [address] Kitty Arrington PA [address] [place] [address] 03/19/2025 9:50 AM EDT Office Visit [facility] S[facility] DERM [address] [place] [address] Pinky Mesa, COLOR BLENDER-SECURITY PATROL DRIVER [address] [place], [place] [address] 02/21/2026 10:00 AM EDT Office Visit [facility] BCP OB [address] [facility] [place] [address] Kitty Arrington PA [address] [place] [address] documented as of this encounter Visit Diagnoses Not on filedocumented in this encounter Care Teams Pilot Can Router Relationship Specialty Start Date End Date Ahsan Crandall DO [address] [place] [address] PCP - General Family Medicine 02/24/23 Gala Mejia NP [address] [place] [address] PCP - [place] [employer] 03/27/24 5 documented as of this encounter
--- OUTSIDE RECORDS SUMMARY | 2025-02-22 12:13 | XMS_ITS | Encounter Summary ---
Author Organization [facility] Address [address] [facility] [place] [address] Care Team Providers Care Embossing Press Operator Molded Goods Name Role Phone Ahsan Crandall Primary Care Provider [phone] Encounter Details Date Type Department Care Team [...] often do you attend chur ch or uatsdin services? Never 08/31/2024 Do you belong to any clubs o r organizations such as gnosticist groups, unions, fraternal or athletic groups, or [...] Recorded Patient Health Questionnaire-2 Score 0 11/28/2024 [facility] of Occupat ional Health - Occupational Stress [...] any time in the past 12 m [facility], were you homeless or living in a mcc (including now)? No 08/31/2024 Comments No Sex and Gender Information Value Date Recorded Sex Assigned at Not on file Legal Sex Female 11:47 PM EDT Gender Identity Not on file Sexual Orientation Not on file documented as of this encounter Plan of Treatment Upcoming Encounters Date Type Department Care Team (Late st Contact Info) Description 03/15/2025 10:30 AM EDT Office Visit [facility] OB [address] [facility] [place] [address] Kitty Arrington PA [address] [facility] [place] [address] 03/19/2025 9:50 AM EDT Office Visit [facility] S[facility] DERM [address] [place] [address] Pinky Mesa APRN-CLINICAL PARTNER [address] [place], [place] [address] 02/21/2026 10:00 AM EDT Office Visit [facility] BCP OB [address] [facility] [place] [address] Kitty Arrington PA [address] [place] [address] [place], [place] [id number] documented as of this encounter Procedures Procedure Name Priority Date/Time Associated Diagnosis Comments IGP,APTIMA HPV,AGE GDLN Routine 02/15/2025 10:01 AM EDT documented in this encounter Results * IGP,APTIMA HPV,AGE GDLN (02/15/2025 10:01 AM EDT) AGE GDLN ACOG TESTING Note . [facility] Comment: TESTS RESULT FLAG UNITS REF RANGE LAB Clinician Provided Cytology Information Source.............Cervix;Endocervix No. of containers..01 ThinPrep Vial Age Guanakito GALARZA Dotty... 30 01 FLAG LEGEND: L-Low Normal,H-High Normal,LL-Alert Low,HH-Alert High <-Panic Low,>-Panic High,A-Abnormal,AA-Critical Abnormal Performed at: 01 =[facility] [address] [place] [address] Delilah Mendoza MD, IGP, APTIMA HPV, RFX 16/18,45 Note . [facility] Comment: TESTS RESULT FLAG UNITS REF RANGE LAB DIAGNOSIS: 02 NEGATIVE FOR INTRAEPITHELIAL LESION OR MALIGNANCY. Specimen adequacy: 02 Satisfactory for evaluation. No endocervical component is identified. Performed by: 02 Sage Abarca, Sandblaster Paint Sprayer (ASCP) . 02 Note: Note 02 The [...] <-Panic Low,>-Panic High,A-Abnormal,AA-Critical Abnormal Performed at: [address] [address] Delilah Mendoza MD, HPV APTIMA Negative Negative [facility] Comment: This nucleic acid amplification test detects fourteen high- risk HPV types (16,18,31,33,35,39,45,51,52,56,58,59,66,68) without differentiation. Performed at: =[facility] [id number] Bank Clerk: Delilah Mendoza MD, Phone: [phone] Performed at: [facility] [address] [id number] Bank Clerk: Delilah Mendoza MD, Phone: [phone] 02/15/2025 10:0 1 AM EDT 02/15/2025 3:19 PM EDT Narrative CLINISYNC - 02/20/2025 2:08 PM EDT BRUSH-SPATULA CERVIX ENDOCERVIX us Kitty GAO LAB BLOOD ORDERABLES Final Resul t CLINISYNC [facility] documented in this encounter Visit Diagnoses Not on filedocumented in this encounter Care Teams Embossing Press Operator Molded Goods Relationship Specialty Start Date End Date Ahsan Crandall DO [address] [place] [address] PCP - General Family Medicine 02/24/23 documented as of this encounter
--- OUTSIDE RECORDS SUMMARY | 2025-02-22 12:13 | XMS_ITS | Encounter Summary ---
Author Organization [facility] Address [address] [place] [address] Care Team Providers Care Lidar Scientist Name Role Phone Ahsan Crandall DO Primary Care Provider [phone] Encounter Details Date Type Department Care Team (Late st Contact Info) Description 02/15/2025 Bamboo flowsheet [facility] BCP OB [address] [facility] [place] [address] Kitty Arrington PA [address] [facility] [address] [place], [facility] Social History Tobacco Use Types Packs/Day [...] often do you attend chur ch or taoism services? Never 08/31/2024 Do you belong to any clubs o r organizations such as anabaptism groups, unions, fraternal or athletic groups, or [...] Recorded Patient Health Questionnaire-2 Score 0 11/28/2024 [facility] of Occupat ional Health - Occupational [...] any time in the past 12 m [facility], were you homeless or living [...] 10:30 AM EDT Office Visit [facility] OB [address] [facility] [place] [phone] Kitty Arrington PA [address] [facility] [place] [address] 03/19/2025 9:50 AM EDT Office Visit [facility] S[facility] DERM [address] [place] [address] Pinky Mesa, SQUEEGEER AND FORMER-CASH REGISTER SERVICER [address] [place] [address] 02/21/2026 10:00 AM EDT Office Visit [facility] OB [address] [facility] [place] [address] Kitty Arrington PA [address] [facility] [place] [address] documented as of this encounter Visit Diagnoses Not on filedocumented in this encounter Care Teams Lidar Scientist Relationship Specialty Start Date End Date Ahsan Crandall DO [address] [place] [address] PCP - General Family Medicine 02/24/23 documented as of this encounter
--- OUTSIDE RECORDS SUMMARY | 2025-02-22 12:13 | XMS_ITS | Encounter Summary ---
Author Organization [facility] Address [address] [place] [address] Care Team Providers Care Tool Pusher Name Role Phone Ahsan Crandall DO Primary Care Provider [phone] Gala Mejia OPHTHALMIC PHOTOGRAPHER Unavailable Encounter Details Date Type Department Care Team (Late st Contact Info) Description 11/06/2024 Abstract [facility] S[facility] FM [address] [facility] [address] [place] [address] Ahsan Crandall DO [address] [facility] [address] [place] [address] Social History Tobacco Use Types Packs/Day Years [...] often do you attend chur ch or yazidism services? Never 08/31/2024 Do you belong to any clubs o r organizations such as scientologist groups, unions, fraternal or athletic groups, or [...] Recorded Patient Health Questionnaire-2 Score 0 04/19/2024 [facility] of Occupat ional [facility] - Occupational Stress Questionnaire Answer Date [...] any time in the past 12 m [facility], were you homeless or living in a [place] [facility] [place] (including now)? No 08/31/2024 Comments No Sex [...] EDT Office Visit [facility] BCP OB [address] [facility] [place] [address] Kitty Arrington PA [address] [facility] [place] [address] 03/19/2025 9:50 AM EDT Office Visit [facility] DERM [address] [place] [address] Pinky Mesa, CONSERVATION ENFORCEMENT OFFICER-MATERIAL ANALYST [address] [place], [place] [id number] 02/21/2026 10:00 AM EDT Office Visit [facility] BCP OB [address] [facility] [place] [address] Kitty Arrington PA [address] [facility] [place] [address] documented as of this encounter Visit Diagnoses Not on filedocumented in this encounter Care Teams Tool Pusher Relationship Specialty Start Date End Date Ahsan Crandall DO [address] [place] [address] PCP - General Family Medicine 02/24/23 Gala Mejia NP [address] [place] [address] PCP - [place] [employer] 03/27/24 5 documented as of this encounter
--- OUTSIDE RECORDS SUMMARY | 2025-02-22 12:14 | XMS_ITS | Clinical Summary ---
Author Organization [facility] Address [facility] [place] [address] Care Team Providers Care Wafer Polishing Lead Worker Name Role Phone Kitty Bell (Hist) Primary [...] Cancer Screening 2007 Covid-19 Vaccine ( - 2023- season) 2024 Influenza Vaccine (Season Ended) 2025 Insurance [employer] Care Teams Wafer Polishing Lead Worker Relationship Specialty Start Date End Date Alt Kitty Giraldo (Hist) PCP - General 01/20/07
--- OUTSIDE RECORDS SUMMARY | 2025-02-22 12:14 | XMS_ITS | Encounter Summary ---
Author Organization [facility] Address [address] [place] [address] Care Team Providers Care Road Patcher Name Role Phone CierraAhsan brunson Primary Care Provider [phone] Gala Mejia SERVICES COORDINATOR Unavailable Mihaela Morrison MD Unavailable Encounter Details Date Type Department Care Team (Late st Contact Info) Description 01/05/2024 Clinisync Result Encounter [facility] External Department Unsolicited Brigitte Roberts DO [address] [facility] [address] Michelle Root, [facility]11 Social History Tobacco Use Types [...] [address] [facility] [place] [address] Kitty Arrington PA [address] [facility] [address] [place], [facility]11 03/19/2025 9:50 AM EDT Office Visit [facility] [address] [place] [address] Pinky Mesa, DISPLAY SCREEN FABRICATOR-ROLLER COASTER DESIGNER [address] [place] [address] 02/21/2026 10:00 AM EDT Office Visit [facility] OB [address] [facility] [place] [phone] Kitty Arrington PA [address] [facility] [place] [address] documented as of this encounter Procedures Procedure Name Priority Date/Time Associated Diagnosis Comments US PELVIS W/ TRANSVAGINAL 01/05/2024 12:48 PM EDT documented in this encounter Results * US PELVIS W/ TRANSVAGINAL (01/05/2024 12:48 PM EDT) Anatomical Region Laterality Modality Other 01/05/2024 12:4 8 PM EDT Narrative 01/05/2024 12:51 PM EDT [address] [address] Ultrasound Report Signed Patient: ANTONIO GAYTAN MR#: [id number] : 1985 Acct:[id number] Age/Sex: 38 / F ADM Date: 01/05/24 Loc: [facility] Attending Dr: Brigitte Roberts D.O. Ordering Physician: Brigitte Roberts D.O. Date of Service: 01/05/24 Procedure(s): US pelvis w/ transvaginal Accession Number(s): [id number] cc: Brigitte Roberts D.O.; PRERNA URENA [address] [address] Patient Name: ANTONIO GAYTAN MRN: [id number] date: 1985 Sex: F Assigned Patient Location: [facility] Current Patient Location: [facility] Accession/Order Number: [id number] Exam Date: 01/05/2024 10:10 Report Date: 01/05/2024 [...] Signed By: 01/05/24 1251 DD/ 1248 TD/TT: Tan Room Supervisor: Procedure Note Radiology, Radiologist, MD - 01/05/2024 [place] [address] Ultrasound Report Signed Patient: ANTONIO GAYTAN EMR#: [id number] : 1985Acct:[id number] Age/Sex: 38 / FADM Date: 01/05/24 Loc: [facility] Attending Dr: Brigitte Roberts D.O. Ordering Physician: Brigitte Roberts D.O. Date of Service: 01/05/24 Procedure(s): US pelvis w/ transvaginal Accession Number(s): [id number] cc: Brigitte Roberts D.O.; PRERNA URENA [address] [address] Patient Name: ANTONIO GAYTAN MRN: [id number] date: 1985 Sex: F Assigned Patient Location: [facility] Current Patient Location: [facility] Accession/Order Number: [id number] Exam Date: 01/05/2024 10:10 Report Date: 01/05/2024 [...] M.D. Signed By:01/05/24 1251 DD/ 1248 TD/TT: Tan Room Supervisor: us Brigitte Roberts DO [facility] Final Result documented in this encounter Visit Diagnoses Not on filedocumented in this encounter Care Teams Road Patcher Relationship Specialty Start Date End Date Ahsan Crandall DO [address] [place] [address] PCP - General Family Medicine 02/24/23 Gala Mejia NP [address] [place] [address] PCP - [place] [employer] 03/27/24 5 Mihaela Morrison MD [address] [place] [address] PCP - [facility] Mikaela [facility] 12/27/23 06/26/24 documented as of this encounter
[2025-02-23 05:08] LABS: FSH 7.2 mIU/mL (.); Luteinizing Hormone(LH) 7.5 mIU/mL (.)
== END 2025-02-22 12:13 | disposition home or self-care (01) ==
LOC: LAB 12:12
PROVIDERS: PCP Family Medicine; Visit Provider Physician Assistant
DX: E28.2 Polycystic ovarian syndrome (principal); N92.0 Excessive and frequent menstruation with regular cycle
CPT/HCPCS: 36415; 82626; 82627; 83001; 83002

== ENCOUNTER 2025-03-28 09:55 | Emergency (ER) | payer BC, SELFPAY ==
--- OUTSIDE RECORDS SUMMARY | 2025-03-19 09:50 | XMS_ITS | Encounter Summary ---
Author Organization [facility] Address [address] [place] [address] Care Team Providers Care Tire Center Manager Name Role Phone Ahsan Crandall DO Primary Care Provider [phone] Encounter Details Date Type Department Care Team (Late st Contact Info) Description 03/19/2025 9:50 AM EDT Office Visit [facility] [address] [facility] [address] [place] [address] Pinky Mesa, CANE SPLICER-MAMMOGRAPHER [address] [facility] [address] [place] [address] Acne vulgaris; Allergic contact dermatitis due to other agents Social History Tobacco Use Types Packs/Day Years [...] often do you attend chur ch or yarsanism services? Never 08/31/2024 Do you belong to any clubs o r organizations such as baptism groups, unions, fraternal or athletic groups, or [...] Recorded Patient Health Questionnaire-2 Score 0 11/28/2024 [facility] - Occupational Stress Questionnaire Answer Date [...] time in the past 12 m [facility], were you homeless or living in a custodial (including now)? No 08/31/2024 Comments No Sex and Gender Information Value Date Recorded Sex Assigned at Not on file Legal Sex Female 11:47 PM EDT Gender Identity Not on file Sexual Orientation Not on file documented as of this encounter Progress Notes * Pinky Andrade Moshe, CANE SPLICER-MAMMOGRAPHER - 03/19/2025 9:50 AM EDT Images from the original note were not included. Follow up Diagnosis: Acne Location: Face Last visit: 01/17/2025 Symptoms: Did have a few mild headaches initially, has subsided Status: Much improved Current treatment: Aldactone 25 mg qd initiated at last follow up. Patient was to continue use of Clindamycin 1% lotion every day in the morning, and Tretinoin 0.025% cream at bedtime Rash Location: Arms and legs Duration: A few days Severity: Mild Quality: Itchy Modifying Factors: Was pulling weeds by the pool and noticed itching afterwards Associated symptoms: Red bumps Treatments tried: None All pertinent medical history, medications, and allergies were reviewed. General Exam: alert, oriented to person, place, and time, normal affect, well appearing, Accompanied by daughter A focused exam completed based on patient reported problems, see below: Skin Exam 1. ACNE VULGARIS Head - Anterior (Face) Clear today secondary to treatment. Patient clear, and happy with treatment plan. Denies headaches, breast tenderness, and break through bleeding. Plan to continue use of Aldactone 25 mg every day, Clindamycin 1% lotion every day in the morning, and Tretinoin 0.025% cream at bedtime. Avoid while on this medication, discontinue immediately if occurs. CMP ordered today. Plan to follow up in 6 months. Refills sent Related Procedures Comprehensive metabolic panel Related Medications clindamycin (Cleocin T) 1 % lotion Apply to face qAM tretinoin (Retin-A) 0.025 % cream Apply to face, once daily at evening/night time, 30 day supply spironolactone (Aldactone) 25 MG tablet Take 1 tablet, by mouth, once daily, 30 days 2. ALLERGIC CONTACT DERMATITIS DUE TO OTHER AGENTS Arms and Legs Few erythematous papules Plan to start TAC 0.1% cream bid/prn for symptomatic relief of itching. Appropriate use of medication discussed, she voiced understanding. triamcinolone (Kenalog) 0.1 % ointment - Arms and Legs Apply to affected areas, up to twice a day when flared, do not use one the face, groin, or underarms, 30 day supply Next Visit: 6 months, follow up documented in this encounter Plan of Treatment Upcoming Encounters Date Type Department Care Team (Late st Contact Info) Description 04/05/2025 1:20 PM EDT Office Visit [facility] [address] [place] [address] Ahsan Crandall DO [address] [place] [address] 09/13/2025 9:50 AM EST Office Visit [facility] [address] [place] [phone] Pinky Mesa APRN-CNP [address] [place] [address] 02/21/2026 10:00 AM EDT Office Visit [facility] OB [address] [facility] [place] [phone] Kitty Arrington PA [address] [facility] [address] [place], [place] [id number] Scheduled Orders Name Type Priority Associated Diagnoses Orde r Schedule Comprehensive metabolic panel Lab Routine Acne vulgaris Expected: 03/19/2025 (Approximate), Expires: 03/19/2026 documented as of this encounter Visit Diagnoses Diagnosis Acne vulgaris Other acne Allergic contact dermatitis due to other agents documented in this encounter Care Teams Tire Center Manager Relationship Specialty Start Date End Date Ahsan Crandall DO [address] [facility] [address] [place] [address] PCP - General Family Medicine 02/24/23 documented as of this encounter
--- OUTSIDE RECORDS SUMMARY | 2025-03-28 10:03 | XMS_ITS | Encounter Summary ---
Author Organization [facility] Address [address] [place] [address] Care Team Providers Care Strip Presser Name Role Phone Ahsan Crandall Primary Care Provider [phone] Encounter Details Date Type Department Care Team (Latest Contact Info) Description 03/19/2025 Travel Social History Tobacco Use Types Packs/Day Years [...] often do you attend chur ch or sabianism services? Never 08/31/2024 Do you belong to any clubs o r organizations such as protestant groups, unions, fraternal or athletic groups, or [...] Recorded Patient Health Questionnaire-2 Score 0 11/28/2024 [facility] - Occupational [...] any time in the past [address] [facility], were you homeless or living in a senior living (including now)? No 08/31/2024 Comments No Sex and Gender Information Value Date Recorded Sex Assigned at Not on file Legal Sex Female 11:47 PM EDT Gender Identity Not on file Sexual Orientation Not on file documented as of this encounter Plan of Treatment Upcoming Encounters Date Type Department Care Team (Late st Contact Info) Description 04/05/2025 1:20 PM EDT Office Visit [facility] [address] [place] [phone] Ahsan Crandall DO [address] [place] [address] 09/13/2025 9:50 AM EST Office Visit [facility] [address] [place] [address] Pinky Mesa APRN-SAFETY AND HEALTH CONSULTANT [address] [place] [address] 02/21/2026 10:00 AM EDT Office Visit [facility] OB [address] [facility] [place] [phone] Kitty Arrington PA [address] [facility] [address] [place], [place] [id number] documented as of this encounter Visit Diagnoses Not on filedocumented in this encounter Care Teams Strip Presser Relationship Specialty Start Date End Date Ahsan Crandall DO [address] [place] [address] PCP - General Family Medicine 02/24/23 documented as of this encounter
--- OUTSIDE RECORDS SUMMARY | 2025-03-28 10:03 | XMS_ITS | Encounter Summary ---
Author Organization [facility] Address [address] [place] [address] Care Team Providers Care Budget Counselor Name Role Phone Ahsan Crandall Primary Care Provider [phone] Reason for Visit * Reason Comments Med Refill Encounter Details Date Type Department Care Team (Late st Contact Info) Description 03/25/2025 Refill [facility] [address] [facility] [address] [place] [address] Pinky Mesa, AWS SOFTWARE DEVELOPMENT ENGINEER-INDUSTRIAL HYGIENE TECHNICIAN [address] [facility] [address] [place] [address] Acne vulgaris Social History Tobacco Use Types Packs/Day Years [...] any clubs o r organizations such as temple groups, unions, fraternal or athletic groups, or [...] Patient Health Questionnaire-2 Score 0 11/28/2024 [facility] - Occupational Stress Questionnaire Answer [...] any time in the past 12 m [facility], were you homeless or living in a long-term (including now)? No 08/31/2024 Comments No Sex and Gender Information Value Date Recorded Sex Assigned at Not on file Legal Sex Female 11:47 PM EDT Gender Identity Not on file Sexual Orientation Not on file documented as of this encounter Miscellaneous Notes * Telephone Encounter - Elizabeth Varela LPN - 03/26/2025 8:22 AM EDT New script sent 03/19/2025 documented in this encounter Plan of Treatment Upcoming Encounters Date Type Department Care Team (Late st Contact Info) Description 04/05/2025 1:20 PM EDT Office Visit [facility] [address] [place] [address] Ahsan Crandall DO [address] [place] [address] 09/13/2025 9:50 AM EST Office Visit [facility] [address] [place] [address] Pinky Mesa, AWS SOFTWARE DEVELOPMENT ENGINEER-INDUSTRIAL HYGIENE TECHNICIAN [address] [place], [place] [phone] 02/21/2026 10:00 AM EDT Office Visit [facility] OB [address] [facility] [place] [address] Kitty Arrington PA [address] [facility] [address] [place], [place] [phone] documented as of this encounter Visit Diagnoses Diagnosis Acne vulgaris Other acne documented in this encounter Care Teams Budget Counselor Relationship Specialty Start Date End Date Ahsan Crandall DO [address] [facility] [address] [place] [address] PCP - General Family Medicine 02/24/23 documented as of this encounter
--- OUTSIDE RECORDS SUMMARY | 2025-03-28 10:03 | XMS_ITS | Encounter Summary ---
Author Organization [facility] Address [address] [place] [address] Care Team Providers Care Sewer System Supervisor Name Role Phone Ahsan Crandall DO Primary Care Provider [phone] Encounter Details Date Type Department Care Team (Late st Contact Info) Description 03/19/2025 Bamboo flowsheet [facility] [address] [facility] [address] [place] [address] Pinky Mesa, NANDINI-RUG INSPECTOR [address] [facility] [address] [place] [address] Social History Tobacco Use Types Packs/Day Years [...] often do you attend chur ch or lutheran services? Never 08/31/2024 Do you belong to any clubs o r organizations such as moravian groups, unions, fraternal or athletic groups, or [...] Recorded Patient Health Questionnaire-2 Score 0 11/28/2024 [facility] Occupat ional Health - [...] time in the past 12 m [facility], were you homeless or living in a assisted (including now)? No 08/31/2024 Comments No Sex and Gender Information Value Date Recorded Sex Assigned at Not on file Legal Sex Female 11:47 PM EDT Gender Identity Not on file Sexual Orientation Not on file documented as of this encounter Plan of Treatment Upcoming Encounters Date Type Department Care Team (Late st Contact Info) Description 04/05/2025 1:20 PM EDT Office Visit [facility] [address] [place] [address] Ahsan Crandall DO [address] [place] [address] 09/13/2025 9:50 AM EST Office Visit [facility] [address] [place] [address] Pinky Mesa, RESIDENT CAREGIVER-RUG INSPECTOR [address] [place] [address] 02/21/2026 10:00 AM EDT Office Visit [facility] OB [address] [facility] [place] [phone] Kitty Arrington PA [address] [facility] [address] [place], [place] [id number] documented as of this encounter Visit Diagnoses Not on filedocumented in this encounter Care Teams Sewer System Supervisor Relationship Specialty Start Date End Date Ahsan Crandall DO [address] [place], [place] [phone] PCP - General Family Medicine 02/24/23 documented as of this encounter
--- OUTSIDE RECORDS SUMMARY | 2025-03-28 10:03 | XMS_ITS | Clinical Summary ---
Author Organization [facility] Healthcare Address [address] [place] [address] Care Team Providers Care Felt Hooker Name Role Phone Ahsan Crandall DO Primary Care Provider [phone] Allergies Active Allergy Reactions Criticality Noted Date [...] MG tablet Take 25 mg by mouth as needed in the morning and 25 mg as needed at noon and 25 mg as needed in the evening for dizziness. Active Rimegepant Sulfate (Nurtec) 75 MG tablet dispersibleIndicat ions:Migraine without status migrainosus, not intractable, unspecified migraine type Take 75 mg by mouth Daily as needed (headache) 2 tablet 025 Active clindamycin (Cleocin T) 1 % [...] Daily 30 capsule 6 025 2024 Active triamcinolone (Kenalog) 0.1 % ointmentIndication s:Allergic contact dermatitis due to other agents Apply to affected areas, up to twice a day when flared, do not use one the face, groin, or underarms, 30 day supply 30 g 11 025 Active spironolactone (Aldactone) 25 MG tabletIndications: Acne vulgaris Take 1 tablet (25 mg) by mouth Daily 90 tablet 1 025 2024 Active predniSONE (Deltasone) 20 MG tablet TAKE 3 TABLETS BY MOUTH DAILY FOR 4 DAYS then TAKE 2 TABLETS BY MOUTH DAILY FOR 4 DAYS then TAKE 1 TABLET BY MOUTH DAILY FOR 3 DAYS 025 Active spironolactone (Aldactone) 25 MG tabletIndications: Acne vulgaris Take 1 tablet, by mouth, once daily, 30 days 30 tablet 2 025 2024 Discontinued spironolactone (Aldactone) 25 MG tabletIndications: Acne vulgaris Take 1 tablet, by mouth, once daily, 30 days 30 tablet 5 025 2024 Discontinued Active Problems Problem Noted Date Diagnosed Date Migraines 08/31/2024 Anxiety 02/01/2024 Vitamin D insufficiency 02/01/2024 Irregular menstrual cycle 12/27/2023 Well woman exam with routine gynecological exam 12/27/2023 Resolved Problems Problem Noted Date Diagnosed Date Resolved Date Slow transit constipation 08/31/2024 Encounters Date Type Department Care Team Description 03/27/2025 Refill [facility] [address] [place] [address] Pinky Mesa APRN-GAS LOAD DISPATCHER Acne vulgaris 03/25/2025 Refill [facility] D[facility]M [address] [place] [phone] Pinky Mesa APRN-GAS LOAD DISPATCHER Acne vulgaris 03/19/2025 9:50 AM EDT Office Visit [facility] D[facility]M [address] [place] [address] Pinky Mesa, ACADEMIC VICE PRESIDENT-GAS LOAD DISPATCHER Acne vulgaris; Allergic contact dermatitis due to other agents 03/19/2025 Bamboo flowsheet [facility] [address] [place] [phone] Pinky Mesa APRN-GAS LOAD DISPATCHER 03/19/2025 Travel 02/27/2025 Orders Only [facility] [address] [place] [address] Estefani Cortes LPN 02/22/2025 Clinisync Result Encounter [facility]OM[facility] External Department Unsolicited Kitty Arrington PA 02/21/2025 Clinisync Result Encounter [facility]OMS External Department Unsolicited Provider, Generic External Data 02/15/2025 10:00 AM EDT Office Visit [facility] [address] [place] [address] Kitty Arrington PA PCOS (polycystic ovarian syndrome) (Primary Dx); Well woman exam with routine gynecological exam; Menorrhagia with regular cycle 02/15/2025 Clinisync Result Encounter [facility] External Department Unsolicited Provider, Generic External Data 02/15/2025 Bamboo flowsheet [facility] [address] [place] [address] Kitty Arrington PA 02/15/2025 Travel 01/17/2025 9:40 AM EDT Office Visit [facility] [address] [place] [phone] Pinky Mesa ACADEMIC VICE PRESIDENT-GAS LOAD DISPATCHER Acne vulgaris 01/17/2025 Bamboo flowsheet [facility] [address] [place] [phone] Pinky Mesa ACADEMIC VICE PRESIDENT-GAS LOAD DISPATCHER 01/17/2025 Travel from Last 3 Months Immunizations Immunization Administration Dates Next Due DTP 06/14/1991, 8,04/12/1987,1986,1986 Hep B, adult 03/13/2014,10/11/2013,09/06/2013 HiB, unspecified 06/14/1991 Influenza, injectable, quadr ivalent, preservative free 08/25/2017 MMR 05/14/1999,12/31/1987 OPV 06/14/1991, 8,02/05/1987,1986 Td (adult), unspecified 05/14/1999 Tdap 05/13/2017 Family History Medical History Relation Name Comments Intellectual Disability Daughter 1 Cambree Dull Learning disabilities Daughter 1 Cambree Dull Alcohol abuse Father Melchor Cash Hyperlipidemia Father Melchor Cash Hypertension Father Melchor Cash Migraines Father Melchor Cash Bipolar disorder Mother Alcohol abuse Paternal Grandfather Yunior Crosslevirocío lopez Hearing loss Paternal Grandfather Yunior Crosslevibhargav Asthma Paternal Grandmother Angelique lopez Hypertension Paternal Grandmother Angelique lopez Migraines Paternal Grandmother Angelique lopez Stroke Paternal Grandmother Angelique lopez CVA (cerebral infarction) No Known Problems Sister Relation Name Status Comments Daughter 1 Cambree Dull Alive Daughter 2 Alive Father Melchor Cash Alive Mother Alive Paternal Grandfather Yunior Cash [...] Never 08/31/2024 How often do you attend [facility] or mandaeism services? Never 08/31/2024 Do you belong to any clubs o r organizations such as restoration groups, unions, fraternal or athletic groups, or [...] Recorded Patient Health Questionnaire-2 Score 0 11/28/2024 [facility] - Occupational Stress Questionnaire Answer [...] any time in the past 12 m [facility], were you homeless or living in a group home (including now)? No 08/31/2024 Comments No Sex [...] 04/05/2025 1:20 PM EDT Office Visit [facility] FM [address] [place] [address] Ahsan Crandall DO [address] [place] [address] 09/13/2025 9:50 AM EST Office Visit [facility] [address] [place] [address] Pinky Mesa APRN-ROYA [address] [place] [address] 02/21/2026 10:00 AM EDT Office Visit [facility] [address] [place] [address] Kitty Arrington PA [address] [place] [address] [place] [address] Health Maintenance Due Date Last Done Comments Influenza Vaccine (#1) 2025 08/25/2017 Cervical Cancer Screening 12/26/2027 HPV/Cotest 12/26/2027 Pap Smear 02/16/2028 02/15/2025, 12/25/2022 Procedures Procedure Name Priority Date/Time Associated Diagnosis Comments ALL DEHYDROEPIANDROSTERONE Routine 02/22 12:19 PM EDT ALL FOLLICLE STIMULATING HORMONE Routine 02/22/2025 12:19 PM EDT ALL LUTEINIZING HORMONE Routine 02/23/20 12:19 PM EDT ALL DHEA SULFATE Routine 02/22/2025 12:19 PM EDT TBH PREG QUANT HCG Routine 02/21/2025 2: 58 PM EDT ALL THYROID STIM HORMONE Routine 025 2:58 PM EDT CCF APTT Routine 02/21/2025 2:58 PM EDT SRMCOH PROTHROMBIN TIME INR W/O COUM Routine 02/21/2025 2:58 PM EDT ALL THYROXINE (T4) FREE Routine 02/22/20 25 2:58 PM EDT MLR HEMOGLOBIN A1C Routine 02/21/2025 2: 58 PM EDT ALL CBC WITH AUTO DIFF Routine 2:58 PM EDT POCT URINALYSIS DIPSTICK Routine 025 10:16 AM EDT Well woman exam with routine gynecological exam IGP,APTIMA HPV,AGE GDLN Routine 02/16/20 10:01 AM EDT PAP SMEAR Routine 02/15/2025 12:00 AM EDT from Last 3 Months Results * ALL LUTEINIZING HORMONE (02/22/2025 12:19 PM EDT) LUTEINIZING HORMONE(LH) 7.5 . mIU/mL [facility] Comment: Adult Female Range Follicular phase 2.4 - 12.6 Ovulation phase 14.0 - 95.6 Luteal phase 1.0 - 11.4 Postmenopausal 7.7 - 58.5 02/22/2025 12:1 9 PM EDT 02/22/2025 12:20 PM EDT Narrative CLINISYNC - 02/23/2025 5:08 AM EDT Generic External Data Provider CLINISYNC F inal Result Performing Organization Address [facility] Co de Phone Number [facility] * ALL FOLLICLE STIMULATING HORMONE (02/22/2025 12:19 PM EDT) FSH 7.2 . mIU/mL [facility] Comment: Adult Female Range Follicular phase 3.5 - 12.5 Ovulation phase 4.7 - 21.5 Luteal phase 1.7 - 7.7 Postmenopausal 25.8 - 134.8 Performed at: [facility] [address] [id number] Bender Hand: Rancho Eduardo PhD, Phone: [phone] 02/22/2025 12:1 9 PM EDT 02/22/2025 12:20 PM EDT Narrative CLINISYNC - 02/23/2025 5:08 AM EDT Generic External Data Provider CLINISYNC F inal Result Performing Organization Address City/[facility] Co de Phone Number [facility] * ALL DHEA SULFATE (02/22/2025 12:19 PM EDT) DHEA-SULFATE 109.0 57.3 - 279.2 ug/dL [facility] 02/22/2025 12:1 9 PM EDT 02/22/2025 12:20 PM EDT Narrative CLINISYNC - 02/23/2025 5:08 AM EDT Generic External Data Provider CLINISYNC F inal Result Performing Organization Address [facility] de Phone Number CLINISYNC [facility] * ALL DEHYDROEPIANDROSTERONE (02/22/2025 12:19 PM EDT) DHEA, SERUM 87 31 - 701 ng/dL [facility] Comment: This test was developed and its performance characteristics determined by [facility]. It has not been cleared or approved by the Food and Drug Administration. Performed at: [address] [id number] Bender Hand: Pauline Palafox MD, Phone: [phone] 02/22/2025 12:1 9 PM EDT 02/22/2025 12:20 PM EDT Narrative CLINISYNC - 02/28/2025 6:08 PM EDT Kitty ELIZABETHISYNC Final Result Performing Organization Address [facility] Phone Number CLINISYNC [facility] * TBH PREG QUANT HCG (02/21/2025 2:58 [...] CLINISYNC F inal Result Performing Organization Address [facility] de Phone Number CLINISYCOUNTS INCLUDE 234 BEDS AT THE [facility] * [facility] PROTHROMBIN TIME INR W/O COUM (02/21/2025 2:58 PM EDT) PROTHROMBIN TIME 10.5 9.0 - 11.6 sec [facility] TB INR 0.99 TB Comment: DESIRED INR: 2.0-3.0 CONDITIONS NOT LISTED BELOW 2.5-3.5 FOR PROSTHETIC HEART VALVE REPLACEMENT 2.5-3.5 RECURRENT THROMBOSIS 02/21/2025 2:58 PM EDT 02/21/2025 3:05 PM EDT Narrative CLINISYNC - 02/21/2025 4:21 PM EDT Generic External Data Provider DIEGO F latasha Result Performing Organization Address [facility] de Phone Number HARDEEPCOUNTS INCLUDE 234 BEDS AT THE [facility] * MLR HEMOGLOBIN A1C (02/21/2025 2:58 PM EDT) GLYCOHEMOGLOBIN A1C 5.4 4.5 - 6.2 % [facility] Comment: ADA RECOMMENDED LIMIT 4.0 - 6.0 ADA THERAPEUTIC TARGET < 7.0 ACTION SUGGESTED > 7.0 ESTIMATED AVERAGE GLUCOSE 108 mg/dL [facility] 02/21/2025 2:58 PM EDT 02/21/2025 3:05 PM EDT Narrative CLINISYNC - 02/21/2025 3:44 PM EDT Kitty CORTEZ Final Result Performing Organization Address [facility] de Phone Number HARDEEPCOUNTS INCLUDE 234 BEDS AT THE [facility] * [facility] APTT (02/21/2025 2:58 PM EDT) PARTIAL THROMBOPLASTIN TIME 29.2 22.3 - 36.2 sec [facility] 02/21/2025 2:58 PM EDT 02/21/2025 3:05 PM EDT Narrative CLINISYNC - 02/21/2025 4:21 PM EDT Generic External Data Provider GLENNISYNC F inaalvaro Result CLINSARAHMS TB * ALL THYROXINE (T4) FREE (02/21/2025 2:58 PM EDT) FREE T4 1.15 0.76 - 1.46 ng/dL [facility] 02/21/2025 2:58 PM EDT 02/21/2025 3:05 PM EDT Narrative CLINISYNC - 02/21/2025 4:12 PM EDT Kitty GAO CLINISYISHA Final Result Performing Organization Address [facility]/ZIP Co de Phone Number CLINSARAHMS TB * ALL THYROID STIM HORMONE (02/21/2025 2:58 PM EDT) THYROID STIMULATING HORMONE 1.265 0.358 - 3.740 uIU/mL [facility] 02/21/2025 2:58 PM EDT 02/21/2025 3:05 PM EDT Narrative CLINISYNC - 02/21/2025 5:20 PM EDT Generic External Data Provider CLINISYNC F inal Result Performing Organization Address City/[facility]/ZIP Co de Phone Number HARDEEPMS TB * (ABNORMAL) ALL CBC WITH AUTO [...] PM EDT Kitty GAO CLINISYNC Final Result DIEGO TB * (ABNORMAL) POCT urinalysis dipstick manually resulted (02/15/2025 10:16 AM EDT) Color, UA Straw Clarity, UA Clear Glucose, UA Negative Negative - 1999(110) ++++ mg/dL Bilirubin, UA Negative Negative - 4(70) +++ mg/dL Ketones, UA Negative Negative - 160(16) ++++ mg/dL Spec Grav, UA 1.025 1 - 1.03 Blood, UA Positive Negative - 50 Manjit/mcL Comment:trace-intact pH, UA 6.0 5 - 9 Protein, UA Negative Negative - 1999(20) ++++ mg/dL Urobilinogen, UA 0.2 0.2 - 12 mg/dL Leukocytes, UA Trace Negative - 500+++ Gina/mcL Nitrite, UA Negative Negative - Positive Urine 02/15/2025 10:1 6 AM EDT Kitty GAO POINT OF CARE TEST ENTER/EDIT OR DERABLES Final Result * IGP,APTIMA HPV,AGE GDLN (02/15/2025 10:01 AM EDT) AGE GDLN ACOG TESTING Note . [facility] Comment: TESTS RESULT FLAG UNITS REF RANGE LAB Clinician Provided Cytology Information Source.............Cervix;Endocervix No. of containers..01 ThinPrep Vial Age Algo ACOG Dotty... 30-65 01 FLAG LEGEND: L-Low Normal,H-High Normal,LL-Alert Low,HH-Alert High <-Panic Low,>-Panic High,A-Abnormal,AA-Critical Abnormal Performed at: 01 [facility] [address] [facility] [place] [address] Delilah Mendoza MD, IGP, APTIMA HPV, RFX 16/18,45 Note . [facility] Comment: TESTS RESULT FLAG UNITS REF RANGE LAB DIAGNOSIS: 02 NEGATIVE FOR INTRAEPITHELIAL LESION OR MALIGNANCY. Specimen adequacy: 02 Satisfactory for evaluation. No endocervical component is identified. Performed by: 02 [employer] [employer] Technical Support 1 Software Engineer ([facility]) . 02 Note: Note 02 The [...] High <-Panic Low,>-Panic High,A-Abnormal,AA-Critical Abnormal Performed at: [address] [place] [phone] Delilah Mendoza MD, HPV APTIMA Negative Negative [facility] Comment: This nucleic acid amplification test detects fourteen high- risk HPV types (16,18,31,33,35,39,45,51,52,56,58,59,66,68) without differentiation. Performed at: = - [address] [id number] Bender Hand: Delilah Mendoza MD, Phone: [phone] Performed at: [address] [id number] Bender Hand: Delilah Mendoza MD, Phone: [phone] 02/15/2025 10:0 1 AM EDT 02/15/2025 3:19 PM EDT Narrative CLINISYNC - 02/20/2025 2:08 PM EDT BRUSH-SPATULA CERVIX ENDOCERVIX us Kitty Arrington PA LAB BLOOD ORDERABLES Final Resul t CLINISYNC TB[facility] * Pap Smear (02/15/2025 12:00 AM EDT) Swab Cervical swab / Unknown us Alejandra Nurse [facility] B[facility] Ob LAB CYTOLOGY ORDERABLES Final Result EXTERNAL LAB from Last 3 Months Insurance BS Care Teams Felt Hooker Relationship Specialty Start Date End Date Ahsan Crandall DO [address] [place] [address] PCP - General Family Medicine 02/24/23
--- OUTSIDE RECORDS SUMMARY | 2025-03-28 10:03 | XMS_ITS | Encounter Summary ---
Author Organization [facility] Address [address] [place] [address] Care Team Providers Care Professional System Administrator Name Role Phone Ahsan Crandall Primary Care Provider [phone] Reason for Visit * Reason Comments Med Refill Encounter Details Date Type Department Care Team (Late st Contact Info) Description 03/27/2025 Refill [facility] [address] [facility] [address] [place] [address] Pinky Mesa, CLIENT SUPPORT ADMINISTRATOR-EXPLOSIVE ORDNANCE DISPOSAL TECHNICIAN [address] [facility] [address] [place] [address] Acne vulgaris Social History Tobacco Use Types [...] often do you attend chur ch or buddhist services? Never 08/31/2024 Do you belong to any clubs o r organizations such as zoroastrianism groups, unions, fraternal or athletic groups, or [...] Recorded Patient Health Questionnaire-2 Score 0 11/28/2024 [facility] - Occupational Stress Questionnaire Answer Date [...] in the past 12 m [facility], were you homeless or living in a m[facility]p (including now)? No 08/31/2024 Comments No Sex [...] [address] [place] [phone] Ahsan Crandall DO [address] [place] [address] 09/13/2025 9:50 AM EST Office Visit [facility] [address] [place] [phone] Pinky Mesa, CLIENT SUPPORT ADMINISTRATOR-EXPLOSIVE ORDNANCE DISPOSAL TECHNICIAN [address] [place] [address] 02/21/2026 10:00 AM EDT Office Visit [facility] OB [address] [facility] [place] [address] Kitty Arrington PA [address] [facility] [address] [place], [place] [phone] documented as of this encounter Visit Diagnoses Diagnosis Acne vulgaris Other acne documented in this encounter Care Teams Professional System Administrator Relationship Specialty Start Date End Date Ahsan Crandall DO [address] [place] [address] PCP - General Family Medicine 02/24/23 documented as of this encounter
--- OUTSIDE RECORDS SUMMARY | 2025-03-28 10:04 | XMS_ITS | Encounter Summary ---
Author Organization [facility] Address [address] [place] [address] Care Team Providers Care Pumping Station Engineer Name Role Phone Ahsan Crandall DO Primary Care Provider [phone] Gala Mejia HIGH SCHOOL GUIDANCE COUNSELOR Unavailable Mihaela Morrison MD Unavailable Encounter Details Date Type Department Care Team (Late st Contact Info) Description 01/05/2024 Clinisync Result Encounter [facility] External Department Unsolicited Brigitte Roberts DO [address] [facility] [address] [place], [place] [phone] Social History Tobacco Use Types Packs/Day Years [...] [address] [place] [address] Ahsan Crandall DO [address] [place] [phone] 09/13/2025 9:50 AM EST Office Visit [facility] [address] [place] [address] Jennyferfrancisco javier Pinky A, DIRECTOR OF CLINICAL EDUCATION-SALES FLOOR ASSOCIATE [address] [place] [address] 02/21/2026 10:00 AM EDT Office Visit [facility] B[facility] OB [address] [facility] [place] [phone] Kitty Arrington PA [address] [facility] [address] [place], [place] [phone] documented as of this encounter Procedures Procedure Name Priority Date/Time Associated Diagnosis Comments US PELVIS W/ TRANSVAGINAL 01/05/2024 12:48 PM EDT documented in this encounter Results * US PELVIS W/ TRANSVAGINAL (01/05/2024 12:48 PM EDT) Anatomical Region Laterality Modality Other 01/05/2024 12:4 8 PM EDT Narrative 01/05/2024 12:51 PM EDT [address] [address] Ultrasound Report Signed Patient: ANTONIO GAYTAN MR#: [id number] : 1985 Acct:[id number] Age/Sex: 38 / F ADM Date: 01/05/24 Loc: [facility] Attending Dr: Brigitte Roberts D.O. Ordering Physician: Brigitte Roberts D.O. Date of Service: 01/05/24 Procedure(s): US pelvis w/ transvaginal Accession Number(s): [id number] cc: Brigitte Roberts D.O.; PRERNA URENA [address] [address] Patient Name: ANTONIO GAYTAN MRN: [id number] date: 1985 Sex: F Assigned Patient Location: [facility] Current Patient Location: [facility] Accession/Order Number: [id number] Exam Date: 01/05/2024 10:10 Report Date: 01/05/2024 [...] Signed By: 01/05/24 1251 DD/ 1248 TD/TT: Intermediate Frame Tender: Procedure Note Radiology, Radiologist, MD - 01/05/2024 [place] [address] Ultrasound Report Signed Patient: ANTONIO GAYTAN EMR#: [id number] : 1985Acct:[id number] Age/Sex: 38 / FADM Date: 01/05/24 Loc: [facility] Attending Dr: Brigitte Roberts D.O. Ordering Physician: Brigitte Roberts D.O. Date of Service: 01/05/24 Procedure(s): US pelvis w/ transvaginal Accession Number(s): [id number] cc: Brigitte Roberts D.O.; PRERNA URENA [address] [address] Patient Name: ANTONIO GAYTAN MRN: [id number] date: 1985 Sex: F Assigned Patient Location: [facility] Current Patient Location: [facility] Accession/Order Number: [id number] Exam Date: 01/05/2024 10:10 Report Date: 01/05/2024 [...] M.D. Signed By:01/05/24 1251 DD/ 1248 TD/TT: Intermediate Frame Tender: us Brigitte Roberts DO [facility] IMAGING Final Result documented in this encounter Visit Diagnoses Not on filedocumented in this encounter Care Teams Pumping Station Engineer Relationship Specialty Start Date End Date Ahsan Crandall DO [address] [place] [address] PCP - General Family Medicine 02/24/23 Gala Mejia NP [address] [place] [address] PCP - [employer] 03/27/2411/29/ 5 Mihaela Morrison MD [address] [place] [address] PCP - [facility] Mikaela [facility] 12/27/23 06/26/24 documented as of this encounter
--- OUTSIDE RECORDS SUMMARY | 2025-03-28 10:04 | XMS_ITS | Encounter Summary ---
Author Organization [facility] Address [address] [place] [address] Care Team Providers Care Content Engineer Name Role Phone Ahsan Crandall Primary Care Provider [phone] Encounter Details Date Type Department Care Team (Late st Contact Info) Description 02/27/2025 Orders Only [facility] B[facility] OB [address] [place] [address] Estefani Cortes LPN [address] [facility] [id number] Social History Tobacco Use Types Packs/Day Years [...] often do you attend chur ch or faith services? Never 08/31/2024 Do you belong to [...] any time in the past 12 m [facility], were you homeless or living in a halfway (including now)? No 08/31/2024 Comments No Sex and Gender Information Value Date Recorded Sex Assigned at Not on file Legal Sex Female 11:47 PM EDT Gender Identity Not on file Sexual Orientation Not on file documented as of this encounter Plan of Treatment Upcoming Encounters Date Type Department Care Team (Late st Contact Info) Description 04/05/2025 1:20 PM EDT Office Visit [facility] FM [address] [place] [address] Ahsan Crandall DO [address] [place] [address] 09/13/2025 9:50 AM EST Office Visit [facility] [address] [place] [address] Pinky Mesa, CH[employer] OUTSEAMER-CARDIOTHORACIC ICU RN [address] [place] [address] 02/21/2026 10:00 AM EDT Office Visit [facility] B[facility] OB [address] [place] [phone] Kitty Arrington PA [address] [place] [address] [place] [address] documented as of this encounter Procedures Procedure Name Priority Date/Time Associated Diagnosis Comments PAP SMEAR Routine 02/15/2025 12:00 AM EDT documented in this encounter Results * Pap Smear (02/15/2025 12:00 AM EDT) Swab Cervical swab / Unknown Alejandra Nurse [facility] Ob LAB CYTOLOGY ORDERABLES Final Result EXTERNAL LAB documented in this encounter Visit Diagnoses Not on filedocumented in this encounter Care Teams Content Engineer Relationship Specialty Start Date End Date Ahsan Crandall DO [address] [facility] [address] [place] [phone] PCP - General Family Medicine 02/24/23 documented as of this encounter
--- OUTSIDE RECORDS SUMMARY | 2025-03-28 10:04 | XMS_ITS | Encounter Summary ---
Author Organization [facility] Address [address] [place] [address] Care Team Providers Care Remarketing Rep Name Role Phone Ahsan Crandall DO Primary Care Provider [phone] Gala Mejia DIRECTOR OF DIRECT MARKETING Unavailable Encounter Details Date Type Department Care Team (Late st Contact Info) Description 10/30/2024 Abstract [facility] [address] [facility] [address] [place] [address] Ahsan Crandall DO [address] [facility] [address] [place] [address] Social History Tobacco Use Types Packs/Day Years [...] often do you attend chur ch or mandaeism services? Never 08/31/2024 Do you belong to any clubs o r organizations such as catholic groups, unions, fraternal or athletic groups, [...] Recorded Patient Health Questionnaire-2 Score 0 04/19/2024 [facility] of Occupat ional [facility] - Occupational Stress Questionnaire Answer Date Recorded [...] time in the past 12 m [facility], were you homeless or living in a skilled nursing (including now)? No 08/31/2024 Comments No Sex and Gender Information Value Date Recorded Sex Assigned at Not on file Legal Sex Female 11:47 PM EDT Gender Identity Not on file Sexual Orientation Not on file documented as of this encounter Plan of Treatment Upcoming Encounters Date Type Department Care Team (Late st Contact Info) Description 04/05/2025 1:20 PM EDT Office Visit [facility] [address] [place] [phone] Ahsan Crandall DO [address] [place] [address] 09/13/2025 9:50 AM EST Office Visit [facility] [address] [place] [phone] Pinky Mesa, LINSEED OIL PRESS TENDER-WORKER'S COMPENSATION CLAIMS EXAMINER [address] [place] [address] 02/21/2026 10:00 AM EDT Office Visit [facility] [address] [facility] [place] [address] Kitty Arrington PA [address] [facility] [address] [place], [place] [phone] documented as of this encounter Visit Diagnoses Not on filedocumented in this encounter Care Teams Remarketing Rep Relationship Specialty Start Date End Date Ahsan Crandall DO [address] [place] [address] PCP - General Family Medicine 02/24/23 Gala Mejia NP [address] [place], [place] [phone] PCP - [place] [employer] 03/27/24 5 documented as of this encounter
--- OUTSIDE RECORDS SUMMARY | 2025-03-28 10:04 | XMS_ITS | Clinical Summary ---
Author Organization [facility] Address [facility] [place] [address] Care Team Providers Care Programmer Numerical Control Name Role Phone Kitty Bell (Hist) Primary [...] ( - 2023- season) 2024 Influenza Vaccine (#1) 2025 Insurance MMO [employer] PPO Care Teams Programmer Numerical Control Relationship Specialty Start Date End Date Alt Kitty Giraldo (Hist) PCP - General 01/20/07
--- OUTSIDE RECORDS SUMMARY | 2025-03-28 10:04 | XMS_ITS | Encounter Summary ---
Author Organization [facility] Address [address] [place] [address] Care Team Providers Care Booking Police Officer Name Role Phone Ahsan Crandall DO Primary Care Provider [phone] Gala Mejia CORE INSPECTOR Unavailable Encounter Details Date Type Department Care Team (Late st Contact Info) Description 11/06/2024 Abstract [facility] [address] [facility] [address] [place] [address] Ahsan Crandall DO [address] [facility] [address] [place] [address] Social History Tobacco Use Types Packs/Day Years [...] any clubs o r organizations such as jewish groups, unions, fraternal or athletic groups, or [...] Recorded Patient Health Questionnaire-2 Score 0 04/19/2024 [facility] of Occupat ional [facility] - Occupational Stress Questionnaire Answer Date [...] 04/05/2025 1:20 PM EDT Office Visit [facility] [address] [place] [phone] Ahsan Crandall DO [address] [place] [address] 09/13/2025 9:50 AM EST Office Visit [facility] [address] [place] [phone] Pinky Mesa, VENDING MACHINE FILLER-BRAND LEAD [address] [place] [address] 02/21/2026 10:00 AM EDT Office Visit [facility] [address] [facility] [address] [place] [address] Kitty Arrington PA [address] [facility] [address] [place], [place] [phone] documented as of this encounter Visit Diagnoses Not on filedocumented in this encounter Care Teams Booking Police Officer Relationship Specialty Start Date End Date Ahsan Crandall DO [address] [place] [address] PCP - General Family Medicine 02/24/23 Gala Mejia NP [address] [place], [place] [phone] PCP - [place] [employer] 03/27/24 5 documented as of this encounter
--- OUTSIDE RECORDS SUMMARY | 2025-03-28 10:04 | XMS_ITS | Encounter Summary ---
Author Organization [facility] Address [address] [place] [address] Care Team Providers Care Drywall Worker Name Role Phone CierraAhsan brunson Primary Care Provider [phone] Gala Mejia VENEER CLIPPER HELPER Unavailable Encounter Details Date Type Department Care Team (Late st Contact Info) Description 10/30/2024 Abstract [facility] [address] [facility] [address] [place] [address] Gala Mejia, AG [address] [facility] [address] [place] [address] Social History Tobacco Use Types Packs/Day Years [...] often do you attend chur ch or rastafari services? Never 08/31/2024 Do you belong to [...] Recorded Patient Health Questionnaire-2 Score 0 04/19/2024 [facility] of Occupat ional [facility] - Occupational Stress Questionnaire Answer Date [...] time in the past [address] [facility], were you homeless or living [...] 04/05/2025 1:20 PM EDT Office Visit [facility] [address] [place] [phone] hAsan Crandall DO [address] [place] [address] 09/13/2025 9:50 AM EST Office Visit [facility] [address] [place] [phone] Pinky Mesa, LEATHER REPAIRER-AUTOMATIC EDGER [address] [place] [address] 02/21/2026 10:00 AM EDT Office Visit [facility] [address] [facility] [place] [address] Kitty Arrington PA [address] [facility] [address] [place], [place] [phone] documented as of this encounter Visit Diagnoses Not on filedocumented in this encounter Care Teams Drywall Worker Relationship Specialty Start Date End Date Ahsan Crandall DO [address] [place] [address] PCP - General Family Medicine 02/24/23 Gala Mejia NP [address] [place], [place] [phone] PCP - [place] [employer] 03/27/24 5 documented as of this encounter
[2025-03-28 10:16] VITALS: BP 127/103; PULSE 86; TEMP 36.5; O2SAT 97; BMI 26.5
--- NOTE | 2025-03-28 10:23 | ED.GENADUL1 ---
HPI HPI - General Adult General Chief complaint: Nausea/Vomiting/Diarrhea Stated complaint: RASH NAUSEA VOMITING FEVER Time Seen by Provider: 03/28/25 10:02 Source: patient Mode of arrival: walk-in Limitations: no limitations History of Present Illness HPI narrative: 39-year-old female presents to the emergency department for chief complaint of nausea vomiting and diarrhea and a rash. The rash started last week and is across her abdomen and it is pruritic. She was not pulling weeds or in the cao. The nausea vomiting diarrhea started yesterday she has not vomited today but she still nauseous. No fever or cough. She does not have a generalized rash, the rash is localized to her abdominal wall. Related Data Home Medications ?Medication ?Instructions ?Recorded ?Confirmed albuterol sulfate 2.5 mg/3 mL mg 11/15/24 (0.083 %) solution for nebulization albuterol sulfate 90 mcg/actuation inhalation 11/15/24 aerosol inhaler spironolactone 25 mg tablet 25 mg PO DAILY 03/28/25 03/28/25 Previous Rx's ?Medication ?Instructions ?Recorded meclizine 25 mg tablet 25 mg PO TID PRN dizziness #30 tabs 01/19/24 methylprednisolone 4 mg tablets in 4 mg PO DAILY #21 ea 01/19/24 a dose pack (Medrol (Domingo)) ketorolac 0.5 % eye drops (Acular) 1 drp ophthalmic (eye) Q6H PRN eye 03/04/24 irritation #5 mL methocarbamol 500 mg tablet 500 mg PO Q8H PRN pain #20 tabs 11/15/24 prednisone 10 mg tablet See Rx Instructions .Route 11/15/24 .COMPLEX #30 tabs ondansetron 4 mg disintegrating 4 mg PO Q6H PRN nausea and 03/28/25 tablet vomiting #20 tabs Allergies Allergy/AdvReac Type Severity Reaction Status Date / Time NSAIDS (Non-Steroidal Allergy Severe Swelling Verified 03/28/25 10:16 Anti-Inflamma of Lip/Tongue/Throat latex Allergy Mild Rash Verified 03/28/25 10:16 Penicillins Allergy Mild Rash Verified 03/28/25 10:16 Sulfa (Sulfonamide Allergy Mild Rash Verified 03/28/25 10:16 Antibiotics) Opioid HPI Opioid Management Most Recent Opioid Data: Last Pain Scale 8 02/19/25, 22:27 Review of Systems ROS Narrative A ten point review of systems is negative except as noted above. PFSH PFSH Social History Little interest or pleasure in doing things: not at all Feeling down, depressed, or hopeless: not at all Exam Narrative Exam Narrative: Nurses note and vital signs reviewed and patient is not hypoxic. General: The patient appears well and in no apparent distress. Patient is resting comfortably on cart. Skin: Warm, dry, no pallor noted. There is a raised erythematous rash of which some is a linear present on the abdominal wall, bilaterally. Head: Normocephalic, atraumatic Eye: Normal conjunctiva, no drainage Ears, Nose, Mouth, and Throat: oral mucosa is moist. Nares patent. Cardiovascular: Regular Rate and Rhythm Respiratory: Patient is in no distress, no accessory muscle use, lungs are clear to auscultation, no wheezing, rales or rhonchi Back: non-tender GI: Soft and nontender Musculoskeletal: The patient has no evidence of calf tenderness, no pitting edema, symmetrical pulses noted bilaterally Neurological: A&O, normal speech Psychiatric: Cooperative Constitutional Vital Signs, click to edit/add: Last Vital Signs Temp 97.7 F 03/28/25 10:16 Pulse 86 03/28/25 10:16 Resp 18 03/28/25 10:16 BP 127/103 H 03/28/25 10:16 Pulse Ox 97 03/28/25 10:16 O2 Del Method Room Air 03/28/25 10:16 Course Vital Signs Vital signs: Vital Signs Temperature 97.7 F 03/28/25 10:16 Pulse Rate 86 03/28/25 10:16 Respiratory Rate 18 03/28/25 10:16 Blood Pressure 127/103 H 03/28/25 10:16 Pulse Oximetry 97 03/28/25 10:16 Oxygen Delivery Method Room Air 03/28/25 10:16 Temperature 97.7 F 03/28/25 10:16 Pulse Rate 86 03/28/25 10:16 Respiratory Rate 18 03/28/25 10:16 Blood Pressure 127/103 H 03/28/25 10:16 Pulse Oximetry 97 03/28/25 10:16 Oxygen Delivery Method Room Air 03/28/25 10:16 Medical Decision Making MDM Narrative Medical decision making narrative: Blood work is normal. The rash appears to be a contact dermatitis such as poison ramona. She was recommended hydrocortisone cream. We discussed oral steroids and she states she does not like to take them. I do not feel they are indicated and they will be prescribed. She was given IV fluids and IV Zofran and prescribed Zofran. Treatment diagnosis and follow-up were discussed with the patient. Differential Diagnosis Differential Diagnosis: Dehydration, food poisoning, gastroenteritis Lab Data Lab results reviewed: Yes I reviewed the patient's lab results Labs: Lab Results 03/28/25 Range/Units 10:28 WBC 10.4 (4.0-11.0) 10^3/uL RBC 5.36 (4.20-5.40) 10^6/uL Hgb 15.1 (12.0-16.0) g/dL Hct 45.1 (36.0-48.0) % MCV 84.1 (81.0-99.0) fL MCH 28.2 (26.7-34.0) pg MCHC 33.5 (29.9-35.2) g/dL RDW 12.3 (11.0-15.0) % Plt Count 322 (150-450) 10^3/uL MPV 10.5 (9.5-13.5) fL Neut % (Auto) 51.9 (43.0-75.0) % Lymph % (Auto) 34.7 (20.5-60.0) % Roosevelt % (Auto) 8.4 (1.7-12.0) % Eos % (Auto) 3.8 (0.9-7.0) % Baso % (Auto) 0.5 (0.2-2.0) % Neut # (Auto) 5.4 (1.4-6.5) 10^3/uL Lymph # (Auto) 3.6 (1.2-3.8) 10^3/uL Roosevelt # (Auto) 0.9 H (0.3-0.8) 10^3/uL Eos # (Auto) 0.4 (0.0-0.7) 10^3/uL Baso # (Auto) 0.1 (0.0-0.1) 10^3/uL Abs Immat Gran (auto) 0.07 H (0.00-0.03) 10^3/uL Imm/Tot Granulo (auto) 0.7 H (0.0-0.5) % Sodium 140 (136-145) mmol/L Potassium 3.5 (3.5-5.1) mmol/L Chloride 101 (98-107) mmol/L Carbon Dioxide 30.1 (21.0-32.0) mmol/L Anion Gap 12.4 BUN 13.0 (7.0-18.0) mg/dL Creatinine 0.64 (0.55-1.02) mg/dL Est GFR ( Amer) >60 (>=60 mL/min/1.73m^2) Est GFR (Non-Af Amer) >60 (>=60 mL/min/1.73m^2) BUN/Creatinine Ratio 20.3 Glucose 83 (74-106) mg/dL Calcium 9.3 (8.5-10.1) mg/dL Serum HCG, Qual Negative (NEGATIVE) Discharge Plan Discharge Chief Complaint: Nausea/Vomiting/Diarrhea Clinical Impression: Nausea, vomiting, and diarrhea, Contact dermatitis Patient Disposition: Home, Self-Care Time of Disposition Decision: 11:11 Condition: Good Mode of Transportation: Private Vehicle Prescriptions / Home Meds: New ondansetron 4 mg tablet,disintegrating 4 mg PO Q6H PRN (Reason: nausea and vomiting) Qty: 20 0RF No Action ketorolac [Acular] 0.5 % drops 1 drp ophthalmic (eye) Q6H PRN (Reason: eye irritation) Qty: 5 0RF spironolactone 25 mg tablet 25 mg PO DAILY methylprednisolone [Medrol (Domingo)] 4 mg tablets,dose pack 4 mg PO DAILY Qty: 21 0RF meclizine 25 mg tablet 25 mg PO TID PRN (Reason: dizziness) Qty: 30 0RF albuterol sulfate 2.5 mg /3 mL (0.083 %) solution for nebulization albuterol sulfate 90 mcg/actuation HFA aerosol inhaler INHALATION methocarbamol 500 mg tablet 500 mg PO Q8H PRN (Reason: pain) Qty: 20 0RF prednisone 10 mg tablet See Rx Instructions .ROUTE .COMPLEX Qty: 30 0RF Rx Instructions: 4 by mouth daily for three days then 3 by mouth daily for three days then 2 by mouth daily for three days then 1 by mouth daily for three days Print Language: Spanish Instructions: Contact Dermatitis (ED), Acute Nausea and Vomiting (ED), Acute Diarrhea (ED) Referrals: Nixon QUARLES [Primary Care Provider, Family Practice] - 1 week
[2025-03-28] MEDS: 0.9 % SODIUM CHLORIDE 1,000 ML 1000 ML IV (10:42)
[2025-03-28 10:44] LABS: Hematocrit 45.1 % (36.0-48.0); Hemoglobin 15.1 g/dL (12.0-16.0); Immature Granulocytes Abs Auto 0.07 10^3/uL (0.00-0.03); Immature Granulocytes Pct Auto 0.7 % (0.0-0.5); Lymphocytes Absolute Auto 3.6 10^3/uL (1.2-3.8); Mean Corpuscular HGB Conc 33.5 g/dL (29.9-35.2); Mean Corpuscular Hemoglobin 28.2 pg (26.7-34.0); Mean Corpuscular Volume 84.1 fL (81.0-99.0); Platelet Count 322 10^3/uL (150-450); Red Blood Count 5.36 10^6/uL (4.20-5.40); White Blood Count 10.4 10^3/uL (4.0-11.0)
[2025-03-28 10:59] LABS: Anion Gap 12.4; Blood Urea Nitrogen 13.0 mg/dL (7.0-18.0); Calcium 9.3 mg/dL (8.5-10.1); Carbon Dioxide 30.1 mmol/L (21.0-32.0); Chloride 101 mmol/L (98-107); Estimated GFR (African America >60 (>=60 mL/min/1.73m^2); Estimated GFR (Non-African Ame >60 (>=60 mL/min/1.73m^2); Glucose 83 mg/dL (74-106); Potassium 3.5 mmol/L (3.5-5.1); Sodium 140 mmol/L (136-145)
[2025-03-28 11:19] LABS: Glucose Urine UA NEGATIVE (NEGATIVE)
[2025-03-28 11:44] LABS: Cast Seen? NONE SEEN #/LPF (NONE SEEN); Crystals Seen? None Seen #/HPF (None Seen); Urine Culture Indicated NO
[2025-03-28 12:00] VITALS: BP 105/66; PULSE 68; O2SAT 99
== END 2025-03-28 12:03 | disposition home or self-care (01) ==
PROVIDERS: Emergency Provider Emergency Medicine; PCP Family Medicine
DX: R11.2 Nausea with vomiting, unspecified (principal); R19.7 Diarrhea, unspecified; L25.9 Unspecified contact dermatitis, unspecified cause
CPT/HCPCS: 36415; 80048; 81001; 84703; 85025; 96361; 96374; 99284; J2405